=== PATIENT | female | born 1935 ===

== ENCOUNTER 2017-03-01 15:13 | Emergency (ER) | payer MEDICARE, OTHER ==
[2017-03-01 15:51] VITALS: RESP 20
[2017-03-01] MEDS ORDERED: SODIUM CHLORIDE 0.9% 500 ML IV STA (16:00)
[2017-03-01] MEDS ORDERED: LORazepam 2 MG/ML SYRINGE IV STA (16:01)
--- NOTE | 2017-03-01 16:04 | ED ---
General Adult HPI - General Chief complaint: Neuro Symptoms/Deficit Stated complaint: facial numbness/abdominal pain Time Seen by Provider: 03/01/17 15:15 Source: patient, RN notes reviewed Mode of arrival: wheelchair Limitations: no limitations - History of Present Illness Initial comments: This is an 81-year-old female who presents emergency Department with a past medical history significant for TIA. Patient comes in today because the top of her head including her forehead became tingly even though she had no loss of sensation. Patient states both sides were equally tingly. Patient denies any slurred speech or facial droop. Patient denies any visual disturbances. Patient denies any weakness or numbness. Patient denies any chest pain or palpitations. Patient denies any difficulty breathing or shortness of breath. Patient denies any radiation of the pain. Patient denies diaphoresis. Patient denies any nausea. Patient denies any headache - Related Data Home Medications Medication Instructions Recorded Confirmed Acetaminophen/Diphenhydramine 1 tab PO HS PRN 04/02/16 03/01/17 [Tylenol PM Extra Strength] Cholecalciferol [Vitamin D3] 1,000 unit PO DAILY 04/02/16 03/01/17 Cyanocobalamin [Vitamin B-12] 500 mcg PO DAILY 04/02/16 03/01/17 Furosemide [Lasix] 20 mg PO DAILY 04/02/16 03/01/17 LORazepam [Lorazepam] 0.5 mg PO HS 04/02/16 03/01/17 Losartan [Cozaar] 25 mg PO DAILY 04/02/16 03/01/17 Pravastatin Sodium [Pravachol] 80 mg PO DAILY@1200 04/02/16 03/01/17 Primidone [Mysoline] 50 mg PO QID 04/02/16 03/01/17 Calcium Carbonate/Vitamin D3 1 tab PO DAILY 03/01/17 03/01/17 [Calcium 600-Vit D3 200 Tablet] Potassium Chloride [Klor-Con 10] 10 meq PO DAILY 03/01/17 03/01/17 Propranolol HCl 80 mg PO BID 03/01/17 03/01/17 Previous Rx's Medication Instructions Recorded Aspirin EC [Ecotrin Low Dose] 81 mg PO DAILY #30 tablet. 04/05/16 Apixaban [Eliquis] 2.5 mg PO BID tablet 09/15/16 Allergies Allergy/AdvReac Type Severity Reaction Status Date / Time No Known Allergies Allergy Verified 03/01/17 15:56 Review of Systems ROS Statement: Those systems with pertinent positive or pertinent negative responses have been documented in the HPI. ROS Other: All systems not noted in ROS Statement are negative. Past Medical History Past Medical History: Heart Failure, CVA/TIA, Hypertension Additional Past Medical History / Comment(s): anxiety History of Any Multi-Drug Resistant Organisms: None Reported Past Surgical History: Back Surgery, Tubal Ligation Past Anesthesia/Blood Transfusion Reactions: No Reported Reaction Past Psychological History: Anxiety Smoking Status: Never smoker Past Alcohol Use History: None Reported Past Drug Use History: None Reported - Past Family History Father Family Medical History: CVA/TIA Mother Family Medical History: Cancer Additional Family Medical History / Comment(s): Mother had bladder cancer General Exam - General Exam Comments Initial Comments: GENERAL: Patient is well-developed and well-nourished. Patient is nontoxic and well- hydrated and is in no acute distress. ENT: Neck is soft and supple. No significant lymphadenopathy is noted. Oropharynx is clear. Moist mucous membranes. Neck has full range of motion without eliciting any pain. EYES: The sclera were anicteric and conjunctiva were pink and moist. Extraocular movements were intact and pupils were equal round and reactive to light. Eyelids were unremarkable. PULMONARY: Unlabored respirations. Good breath sounds bilaterally. No audible rales rhonchi or wheezing was noted. CARDIOVASCULAR: There is a regular rate and rhythm without any murmurs gallops or rubs. ABDOMEN: Soft and nontender with normal bowel sounds. No palpable organomegaly was noted. There is no palpable pulsatile mass. SKIN: Skin is clear with no lesions or rashes and otherwise unremarkable. NEUROLOGIC: Patient is alert and oriented x3. Cranial nerves II through XII are grossly intact. Motor and sensory are also intact. Normal speech, volume and content. Symmetrical smile. MUSCULOSKELETAL: Normal extremities with adequate strength and full range of motion. LYMPHATICS: No significant lymphadenopathy is noted PSYCHIATRIC: Normal psychiatric evaluation. Normal interpersonal interactions appears functionally intact in deals appropriately with others. Patient is mildly anxious. Limitations: no limitations Course Vital Signs 03/01/17 03/01/17 03/01/17 15:14 15:32 16:17 Temperature 97.7 F Pulse Rate 78 70 71 Respiratory 18 20 20 Rate Blood Pressure 212/90 194/78 168/71 O2 Sat by Pulse 94 L 95 Oximetry Medical Decision Making - Medical Decision Making EKG shows normal sinus rhythm at 77 bpm PA interval 154 QRS is 76 QT was 404 QTC is 457. Patient's EKG shows no ST segment elevation or depression or T wave abnormalities are noted. Chest x-ray shows no acute normalities. I gave the patient Ativan the patient states all of her symptoms resolved. I went back into reevaluate the patient she states she still has no symptoms and she would like to be discharged home to follow-up with her primary medical care doctor. - Lab Data Result diagrams: 03/01/17 16:15 03/01/17 16:15 Lab Results 03/01/17 03/01/17 03/01/17 Range/Units 16:15 16:15 16:15 WBC 5.9 (3.8-10.6) k/uL RBC 3.84 (3.80-5.40) m/uL Hgb 12.8 (11.4-16.0) gm/dL Hct 37.9 (34.0-46.0) % MCV 98.8 (80.0-100.0) fL MCH 33.5 (25.0-35.0) pg MCHC 33.9 (31.0-37.0) g/dL RDW 13.9 (11.5-15.5) % Plt Count 289 (150-450) k/uL Neutrophils % 66 % Lymphocytes % 22 % Monocytes % 7 % Eosinophils % 4 % Basophils % 1 % Neutrophils # 3.9 (1.3-7.7) k/uL Lymphocytes # 1.3 (1.0-4.8) k/uL Monocytes # 0.4 (0-1.0) k/uL Eosinophils # 0.2 (0-0.7) k/uL Basophils # 0.0 (0-0.2) k/uL PT (9.0-12.0) sec INR (<1.2) APTT (22.0-30.0) sec Sodium 142 (137-145) mmol/L Potassium 3.8 (3.5-5.1) mmol/L Chloride 107 (98-107) mmol/L Carbon Dioxide 27 (22-30) mmol/L Anion Gap 8 mmol/L BUN 13 (7-17) mg/dL Creatinine 1.05 H (0.52-1.04) mg/dL Est GFR (MDRD) Af Amer >60 (>60 ml/min/1.73 sqM) Est GFR (MDRD) Non-Af 50 (>60 ml/min/1.73 sqM) Glucose 157 H (74-99) mg/dL Calcium 9.1 (8.4-10.2) mg/dL Magnesium 1.9 (1.6-2.3) mg/dL Total Bilirubin 0.3 (0.2-1.3) mg/dL AST 22 (14-36) U/L ALT 36 (9-52) U/L Alkaline Phosphatase 113 (38-126) U/L Total Creatine Kinase 45 (30-135) U/L CK-MB (CK-2) 0.5 (0.0-2.4) ng/mL CK-MB (CK-2) Rel Index 1.1 Troponin I <0.012 (0.000-0.034) ng/mL Total Protein 6.5 (6.3-8.2) g/dL Albumin 3.7 (3.5-5.0) g/dL 03/01/17 Range/Units 16:15 WBC (3.8-10.6) k/uL RBC (3.80-5.40) m/uL Hgb (11.4-16.0) gm/dL Hct (34.0-46.0) % MCV (80.0-100.0) fL MCH (25.0-35.0) pg MCHC (31.0-37.0) g/dL RDW (11.5-15.5) % Plt Count (150-450) k/uL Neutrophils % % Lymphocytes % % Monocytes % % Eosinophils % % Basophils % % Neutrophils # (1.3-7.7) k/uL Lymphocytes # (1.0-4.8) k/uL Monocytes # (0-1.0) k/uL Eosinophils # (0-0.7) k/uL Basophils # (0-0.2) k/uL PT 9.5 (9.0-12.0) sec INR 0.9 (<1.2) APTT 21.3 L (22.0-30.0) sec Sodium (137-145) mmol/L Potassium (3.5-5.1) mmol/L Chloride (98-107) mmol/L Carbon Dioxide (22-30) mmol/L Anion Gap mmol/L BUN (7-17) mg/dL Creatinine (0.52-1.04) mg/dL Est GFR (MDRD) Af Amer (>60 ml/min/1.73 sqM) Est GFR (MDRD) Non-Af (>60 ml/min/1.73 sqM) Glucose (74-99) mg/dL Calcium (8.4-10.2) mg/dL Magnesium (1.6-2.3) mg/dL Total Bilirubin (0.2-1.3) mg/dL AST (14-36) U/L ALT (9-52) U/L Alkaline Phosphatase (38-126) U/L Total Creatine Kinase (30-135) U/L CK-MB (CK-2) (0.0-2.4) ng/mL CK-MB (CK-2) Rel Index Troponin I (0.000-0.034) ng/mL Total Protein (6.3-8.2) g/dL Albumin (3.5-5.0) g/dL Disposition Clinical Impression: Paresthesia, Anxiety Disposition: HOME SELF-CARE Condition: Good Instructions: Paresthesia (ED) Referrals: Kosta Fang MD [Primary Care Provider] - 1-2 days Time of Disposition: 17:52
--- NOTE | 2017-03-01 16:28 | XR ---
EXAMINATION TYPE: XR chest 2V DATE OF EXAM: 03/01/2017 COMPARISON: Chest x-ray April 03, 2016. HISTORY: Chest pain TECHNIQUE: Frontal and lateral views of the chest are obtained. FINDINGS: There is chronic parenchymal change without suspicious focal air space opacity, pleural ef fusion, or pneumothorax seen. The cardiac silhouette size is within normal limits with atherosclerot ic thoracic aorta. The osseous structures are demineralized. There is multilevel spurring in the sp ine seen. Cholecystectomy clips are noted. IMPRESSION: Chronic changes without acute pulmonary process.
[2017-03-01 16:33] LABS: Basophils % (A) 1 %; CH 33.7; CHCM 34.3; Eosinophils # (A) 0.2 k/uL (0-0.7); Eosinophils % (A) 4 %; HCT 37.9 % (34.0-46.0); HDW 2.44; HGB 12.8 gm/dL (11.4-16.0); Luc % (Auto) 2; Lymphocytes # (A) 1.3 k/uL (1.0-4.8); Lymphocytes % (A) 22 %; MCH 33.5 pg (25.0-35.0); MCHC 33.9 g/dL (31.0-37.0); MCV 98.8 fL (80.0-100.0); Mean Platelet Volume 7.4; Monocytes # (A) 0.4 k/uL (0-1.0); Monocytes % (A) 7 %; Neutrophils # (A) 3.9 k/uL (1.3-7.7); Neutrophils % (A) 66 %; RBC 3.84 m/uL (3.80-5.40); RDW 13.9 % (11.5-15.5); WBC 5.9 k/uL (3.8-10.6); WBC (Perox) 6.11
[2017-03-01 16:40] LABS: INR 0.9 (<1.2); Prothrombin Time 9.5 sec (9.0-12.0)
[2017-03-01 16:43] LABS: ALT 36 U/L (9-52); AST 22 U/L (14-36); Alkaline Phosphatase 113 U/L (38-126); Anion Gap 8 mmol/L; Blood Urea Nitrogen 13 mg/dL (7-17); Calcium 9.1 mg/dL (8.4-10.2); Carbon Dioxide 27 mmol/L (22-30); Chloride 107 mmol/L (98-107); Glucose 157 mg/dL (74-99); Magnesium 1.9 mg/dL (1.6-2.3); Non-African American GFR(MDRD) 50 (>60 ml/min/1.73 sqM); Potassium 3.8 mmol/L (3.5-5.1); Sodium 142 mmol/L (137-145); Total Bilirubin 0.3 mg/dL (0.2-1.3); Total Protein 6.5 g/dL (6.3-8.2)
[2017-03-01 16:50] LABS: Creatine Kinase 45 U/L (30-135)
[2017-03-01 16:52] LABS: Partial Thromboplastin Time 21.3 sec (22.0-30.0)
[2017-03-01 17:03] LABS: Creatine Kinase MB 0.5 ng/mL (0.0-2.4); Troponin I <0.012 ng/mL (0.000-0.034)
[2017-03-01 18:01] VITALS: BP 169/84; PULSE 74; TEMP 98.2
== END 2017-03-01 18:01 | disposition home or self-care (01) ==
LOC: EC 15:13
DX: R20.2 Paresthesia of skin (principal); F41.9 Anxiety disorder, unspecified; I11.0 Hypertensive heart disease with heart failure; I50.9 Heart failure, unspecified; Z82.3 Family history of stroke; Z79.899 Other long term (current) drug therapy
CPT/HCPCS: 99284; 96374; 96361; 36415; 93005; 80053; 82550; 82553; 83735; 84484; 85025; 85610; 85730; 71020; J2060

== ENCOUNTER 2023-03-08 01:33 | Inpatient (IN) | payer MEDICARE, OTHER ==
[2023-03-08] MEDS ORDERED: fentaNYL (PF) 50 MCG/ML 2 ML AMP IVP PRN (02:02)
[2023-03-08] MEDS ORDERED: NALOXONE 0.4 MG/ML 1 ML VIAL IV PRN (02:03)
[2023-03-08] MEDS: SODIUM CHLORIDE 0.9% 1,000 ML IV SCH ×2 (02:16→16:30)
--- NOTE | 2023-03-08 02:20 | ED ---
General Adult HPI - General Chief complaint: Abdominal Pain Stated complaint: Perforated Bowel Time Seen by Provider: 03/08/23 01:36 Source: patient Mode of arrival: EMS Limitations: no limitations - History of Present Illness Initial comments: This is an 87-year-old female who presents emergency Department [facility] being found to have a perforated colon. The patient reportedly had abdominal pain 2 days prior to having a colonoscopy done on Sunday. The patient stated that after the colonoscopy she had worsening abdominal pain so she went to the emergency department today. The patient stated that she had pain throughout her abdomen and computed tomography scan revealed a perforated colon secondary to the likely colonoscopy. The patient was then transferred for evaluation by surgery. On arrival, the patient stated that her pain was under control however any touch to the abdomen was painful. The patient also reported a fever without chills. The patient denied any active nausea or vomiting. - Related Data Home Medications Medication Instructions Recorded Confirmed Acetaminophen/Diphenhydramine 1 tab PO HS PRN 04/02/16 03/01/17 [Tylenol PM Extra Strength] Cholecalciferol [Vitamin D3 (25 1,000 unit PO DAILY 04/02/16 03/01/17 Mcg = 1000 Iu)] Cyanocobalamin [Vitamin B-12] 500 mcg PO DAILY 04/02/16 03/01/17 Furosemide [Lasix] 20 mg PO DAILY 04/02/16 03/01/17 LORazepam [Lorazepam] 0.5 mg PO HS 04/02/16 03/01/17 Losartan [Cozaar] 25 mg PO DAILY 04/02/16 03/01/17 Pravastatin Sodium [Pravachol] 80 mg PO DAILY@1200 04/02/16 03/01/17 Primidone [Mysoline] 50 mg PO QID 04/02/16 03/01/17 Calcium Carbonate/Vitamin D3 1 tab PO DAILY 03/01/17 03/01/17 [Calcium 600-Vit D3 200 Tablet] Potassium Chloride [Klor-Con 10] 10 meq PO DAILY 03/01/17 03/01/17 Propranolol HCl 80 mg PO BID 03/01/17 03/01/17 Previous Rx's Medication Instructions Recorded Aspirin EC [Ecotrin Low Dose] 81 mg PO DAILY #30 tablet. 04/05/16 Apixaban [Eliquis] 2.5 mg PO BID tablet 04/06/16 Allergies Allergy/AdvReac Type Severity Reaction Status Date / Time No Known Allergies Allergy Verified 03/01/17 15:56 Review of Systems ROS Statement: Those systems with pertinent positive or pertinent negative responses have been documented in the HPI. ROS Other: All systems not noted in ROS Statement are negative. Past Medical History Past Medical History: Heart Failure, CVA/TIA, Hypertension Additional Past Medical History / Comment(s): anxiety History of Any Multi-Drug Resistant Organisms: None Reported Past Surgical History: Back Surgery, Tubal Ligation Past Anesthesia/Blood Transfusion Reactions: No Reported Reaction Past Psychological History: Anxiety Smoking Status: Never smoker Past Alcohol Use History: None Reported Past Drug Use History: None Reported - Past Family History Father Family Medical History: CVA/TIA Mother Family Medical History: Cancer Additional Family Medical History / Comment(s): Mother had bladder cancer General Exam Limitations: no limitations General appearance: alert, in no apparent distress Head exam: Present: atraumatic, normocephalic, normal inspection Eye exam: Present: normal appearance, PERRL Pupils: Present: normal accommodation ENT exam: Present: normal exam, normal oropharynx, mucous membranes moist Neck exam: Present: normal inspection, full ROM Respiratory exam: Present: normal lung sounds bilaterally. Absent: respiratory distress, wheezes Cardiovascular Exam: Present: regular rate, normal rhythm, normal heart sounds GI/Abdominal exam: Present: tenderness (TTP in all quadrants), guarding Extremities exam: Present: normal inspection, full ROM, normal capillary refill Back exam: Present: normal inspection, full ROM Neurological exam: Present: alert, oriented X3, CN II-XII intact Psychiatric exam: Present: normal affect, normal mood Skin exam: Present: warm, dry Course Vital Signs 03/08/23 01:34 Temperature 101.3 F H Pulse Rate 84 Respiratory 16 Rate Blood Pressure 113/48 O2 Sat by Pulse 93 L Oximetry Medical Decision Making - Medical Decision Making Was pt. sent in by a medical professional or institution (, PA, CIVIL PREPAREDNESS TRAINING OFFICER, urgent care, hospital, or [facility]...) When possible be specific @ -Yes, sent as a transfer patient from [facility] Did you speak to anyone other than the patient for history (EMS, parent, family, police, friend...)? What history was obtained from this source @ -No Did you review nursing and triage notes (agree or disagree)? Why? @ -I reviewed and agree with nursing and triage notes Were old charts reviewed (outside hosp., previous admission, EMS record, old EKG, old radiological studies, urgent care reports/EKG's, [facility] records)? Report findings @ -No old charts were reviewed Differential Diagnosis (chest pain, altered mental status, abdominal pain women, abdominal pain men, vaginal bleeding, weakness, fever, dyspnea, syncope, headache, dizziness, GI bleed, back pain, seizure, CVA, palpatations, mental health)? @ -Bowel perforation, sepsis, peritonitis EKG interpreted by me (3pts min.). @ -None X-rays interpreted by me (1pt min.). @ -None done CT interpreted by me (1pt min.). @ -None done U/S interpreted by me (1pt. min.). @ -None done What testing was considered but not performed or refused? (CT, X-rays, U/S, labs)? Why? @ -CT imaging was performed at the outside hospital therefore no repeat was needed at this time. What meds were considered but not given or refused? Why? @ -None Did you discuss the management of the patient with other professionals (professionals i.e. , PA, CIVIL PREPAREDNESS TRAINING OFFICER, lab, RT, psych nurse, marriage and family social worker, board certified behavioral analyst, teacher, crime prevention police officer, director of casework services)? Give summary @ -Yes, the surgeon on-call, Dr. Reyes was contacted and accepted the patient for admission as well as plan for the OR this morning at 5:30. Was smoking cessation discussed for >3mins.? @ -No Was critical care preformed (if so, how long)? @ -Yes, see above Were there social determinants of health that impacted care today? How? (Homelessness, low income, unemployed, alcoholism, drug addiction, transportation, low edu. Level, literacy, decrease access to med. care, shelter, rehab)? @ -No Was there de-escalation of care discussed even if they declined (Discuss DNR or withdrawal of care, Hospice)? DNR status @ -No What co-morbidities impacted this encounter? (DM, HTN, Smoking, COPD, CAD, Cancer, CVA, ARF, Chemo, Hep., AIDS, mental health diagnosis, sleep apnea, morbid obesity)? @ -None Was patient admitted / discharged? Hospital course, mention meds given and ro [place], prescriptions, significant lab abnormalities, going to OR and other pertinent info. @ -Was seen and evaluated emergency department. On physical exam, the patient was resting in bed without any acute distress. Vital signs admission showed a temperature 101.3F but otherwise had vital signs within normal limits. Due to the findings on the previous computed tomography scan and known perforated colon, the surgeon on-call was contacted on arrival. He did accept the patient for admission and to plan to take the OR at 5:30 this morning. The patient was agreeable to this and all of her questions were answered appropriate. The patient was admitted in stable but serious condition. Undiagnosed new problem with uncertain prognosis? @ -No Drug Therapy requiring intensive monitoring for toxicity (Heparin, Nitro, Ins ulin, Cardizem)? @ -No Were any procedures done? @ -No Diagnosis/symptom? @ -Bowel perforation Acute, or Chronic, or Acute on Chronic? @ -Acute Uncomplicated (without systemic symptoms) or Complicated (systemic symptoms)? @ -Complicated Side effects of treatment? @ -No Exacerbation, Progression, or Severe Exacerbation? @ -No Poses a threat to life or bodily function? How? (Chest pain, [place], [place], pneumonia, PE, COPD, DKA, ARF, appy, cholecystitis, CVA, Diverticulitis, Homicidal, Suicidal, threat to staff... and all critical care pts) @ -Yes, continued perforation can lead to peritonitis and sepsis leading to e ndorgan damage and possible . - Lab Data Result diagrams: 03/08/23 02:04 Lab Results 03/08/23 03/08/23 Range/Units 02:04 02:04 WBC 6.6 (3.8-10.6) k/uL RBC 3.18 L (3.80-5.40) m/uL Hgb 10.7 L (11.4-16.0) gm/dL Hct 30.3 L (34.0-46.0) % MCV 95.3 (80.0-100.0) fL MCH 33.8 (25.0-35.0) pg MCHC 35.4 (31.0-37.0) g/dL RDW 12.9 (11.5-15.5) % Plt Count 220 (150-450) k/uL MPV 7.8 Neutrophils % 86 % Lymphocytes % 7 % Monocytes % 5 % Eosinophils % 1 % Basophils % 0 % Neutrophils # 5.7 (1.3-7.7) k/uL Lymphocytes # 0.5 L (1.0-4.8) k/uL Monocytes # 0.3 (0-1.0) k/uL Eosinophils # 0.0 (0-0.7) k/uL Basophils # 0.0 (0-0.2) k/uL PT 10.5 (9.0-12.0) sec INR 1.0 (<1.2) APTT 25.2 (22.0-30.0) sec Critical Care Time Critical Care Time: Yes Total Critical Care Time: 31 Disposition Clinical Impression: Bowel perforation Disposition: ADMITTED IP TO THIS [facility] Condition: Serious Is patient prescribed a controlled substance at d/c from ED?: No Referrals: Kosta Fang MD [Primary Care Provider] - 1-2 days Time of Disposition: 02:00 Decision to Admit Reason: Admit from EC Decision Date: 03/08/23 Decision Time: 02:00
[2023-03-08 02:21] LABS: Basophils % (A) 0 %; Eosinophils % (A) 1 %; HCT 30.3 % (34.0-46.0); HGB 10.7 gm/dL (11.4-16.0); Lymphocytes # (A) 0.5 k/uL (1.0-4.8); Lymphocytes % (A) 7 %; MCH 33.8 pg (25.0-35.0); MCHC 35.4 g/dL (31.0-37.0); MCV 95.3 fL (80.0-100.0); Mean Platelet Volume 7.8; Monocytes # (A) 0.3 k/uL (0-1.0); Monocytes % (A) 5 %; Neutrophils # (A) 5.7 k/uL (1.3-7.7); Neutrophils % (A) 86 %; Platelet Count 220 k/uL (150-450); RBC 3.18 m/uL (3.80-5.40); RDW 12.9 % (11.5-15.5); WBC 6.6 k/uL (3.8-10.6)
[2023-03-08 02:33] LABS: Partial Thromboplastin Time 25.2 sec (22.0-30.0); Prothrombin Time 10.5 sec (9.0-12.0)
[2023-03-08 02:36] LABS: African American GFR (CKD) 41 (>60 ml/min/1.73 sqM); Alkaline Phosphatase 86 U/L (38-126); Anion Gap 5 mmol/L; Blood Urea Nitrogen 24 mg/dL (7-17); Calcium 7.5 mg/dL (8.4-10.2); Carbon Dioxide 21 mmol/L (22-30); Chloride 101 mmol/L (98-107); Glucose 96 mg/dL (74-99); Lipase 125 U/L (23-300); Non-African American GFR(CKD) 36 (>60 ml/min/1.73 sqM); Sodium 127 mmol/L (137-145); Total Bilirubin 1.8 mg/dL (0.2-1.3)
[2023-03-08 03:03] LABS: Albumin 2.5 g/dL (3.5-5.0); Magnesium 1.8 mg/dL (1.6-2.3); Potassium 4.1 mmol/L (3.5-5.1); Total Protein 5.2 g/dL (6.3-8.2)
[2023-03-08 03:04] LABS: ALT 42 U/L (4-34); AST 108 U/L (14-36)
[2023-03-08] MEDS: ACETAMINOPHEN TAB 325 MG TAB PO PRN (03:37)
[2023-03-08] MEDS ORDERED: fentaNYL (PF) 50 MCG/ML 2 ML AMP ONE (05:42)
[2023-03-08] MEDS ORDERED: GLYCOPYRROLATE 0.2 MG/ML 2 ML VIAL ONE (05:42)
[2023-03-08] MEDS ORDERED: PHENYLEPHRINE-0.9% NACL SYG 1,000 MCG/10 ML SYRINGE ONE (05:42)
[2023-03-08] MEDS ORDERED: ROCURONIUM 10 MG/ML (5 ML VIAL) IV ONE (05:42)
[2023-03-08] MEDS ORDERED: MIDAZOLAM 2 MG/2 ML VIAL ONE (05:42)
[2023-03-08] MEDS ORDERED: PROPOFOL 10 MG/ML 20 ML VIAL IV ONE (05:42)
[2023-03-08] MEDS ORDERED: NEOSTIGMINE 1 MG/ML 10 ML VIAL ONE (05:42)
--- NOTE | 2023-03-08 05:42 | P.GSHP ---
History of Present Illness H&P Date: 03/08/23 Chief Complaint: Bowel perforation 87-year-old female transferred from outside hospital after colonoscopy resulted in abdominal pain and findings of free air. CAT scan showed increased air loculations around the proximal transverse colon. Some fluid in the pelvis. Pain gradually increasing since Sunday. She states she was told she had polyps again on the study. Patient with fever of 101.3. Significant abdominal tenderness per ER staff. Patient is unsure where the polyps were found. Patient says the pain began in the mid abdomen. - Review of Systems Comment: The patient denies any acute changes in vision or hearing, no dysphagia or odynophagia, no chest pain or shortness of breath, no dysuria or hematuria, no headache, no runny nose, no rectal bleeding or melena, no unexplained weight loss Past Medical History Past Medical History: Heart Failure, CVA/TIA, Hypertension Additional Past Medical History / Comment(s): anxiety History of Any Multi-Drug Resistant Organisms: None Reported Past Surgical History: Back Surgery, Tubal Ligation Past Anesthesia/Blood Transfusion Reactions: No Reported Reaction Past Psychological History: Anxiety Smoking Status: Never smoker Past Alcohol Use History: None Reported Past Drug Use History: None Reported - Past Family History Father Family Medical History: CVA/TIA Mother Family Medical History: Cancer Additional Family Medical History / Comment(s): Mother had bladder cancer Medications and Allergies Home Medications Medication Instructions Recorded Confirmed Type Acetaminophen/Diphenhydramine 1 tab PO HS PRN 04/02/16 03/01/17 History [Tylenol PM Extra Strength] Cholecalciferol [Vitamin D3 (25 1,000 unit PO DAILY 04/02/16 03/01/17 History Mcg = 1000 Iu)] Cyanocobalamin [Vitamin B-12] 500 mcg PO DAILY 04/02/16 03/01/17 History Furosemide [Lasix] 20 mg PO DAILY 04/02/16 03/01/17 History LORazepam [Lorazepam] 0.5 mg PO HS 04/02/16 03/01/17 History Losartan [Cozaar] 25 mg PO DAILY 04/02/16 03/01/17 History Pravastatin Sodium [Pravachol] 80 mg PO DAILY@1200 04/02/16 03/01/17 History Primidone [Mysoline] 50 mg PO QID 04/02/16 03/01/17 History Aspirin EC [Ecotrin Low Dose] 81 mg PO DAILY #30 tablet. 04/05/16 03/01/17 Rx Apixaban [Eliquis] 2.5 mg PO BID tablet 04/06/16 03/01/17 Rx Calcium Carbonate/Vitamin D3 1 tab PO DAILY 03/01/17 03/01/17 History [Calcium 600-Vit D3 200 Tablet] Potassium Chloride [Klor-Con 10] 10 meq PO DAILY 03/01/17 03/01/17 History Propranolol HCl 80 mg PO BID 03/01/17 03/01/17 History Allergies Allergy/AdvReac Type Severity Reaction Status Date / Time No Known Allergies Allergy Verified 03/01/17 15:56 Surgical - Exam Vital Signs Temp Pulse Resp BP Pulse Ox 101.3 F H 84 16 113/48 93 L 03/08/23 01:34 03/08/23 01:34 03/08/23 01:34 03/08/23 01:34 03/08/23 01:34 Physical exam: General: Well-developed, well-nourished HEENT: Normocephalic, sclerae nonicteric Abdomen: Diffuse abdominal tenderness, mild distention Extremities: No edema Neuro: Alert and oriented Results - Labs 03/08/23 02:04 03/08/23 02:04 Abnormal Lab Results - Last 24 Hours (Table) 03/08/23 03/08/23 Range/Units 02:04 02:04 RBC 3.18 L (3.80-5.40) m/uL Hgb 10.7 L (11.4-16.0) gm/dL Hct 30.3 L (34.0-46.0) % Lymphocytes # 0.5 L (1.0-4.8) k/uL Sodium 127 L (137-145) mmol/L Carbon Dioxide 21 L (22-30) mmol/L BUN 24 H (7-17) mg/dL Creatinine 1.35 H (0.52-1.04) mg/dL Calcium 7.5 L (8.4-10.2) mg/dL Total Bilirubin 1.8 H (0.2-1.3) mg/dL AST 108 H (14-36) U/L ALT 42 H (4-34) U/L Total Protein 5.2 L (6.3-8.2) g/dL Albumin 2.5 L (3.5-5.0) g/dL Diabetes panel 03/08/23 Range/Units 02:04 Sodium 127 L (137-145) mmol/L Potassium 4.1 (3.5-5.1) mmol/L Chloride 101 (98-107) mmol/L Carbon Dioxide 21 L (22-30) mmol/L BUN 24 H (7-17) mg/dL Creatinine 1.35 H (0.52-1.04) mg/dL Glucose 96 (74-99) mg/dL Calcium 7.5 L (8.4-10.2) mg/dL AST 108 H (14-36) U/L ALT 42 H (4-34) U/L Alkaline Phosphatase 86 (38-126) U/L Total Protein 5.2 L (6.3-8.2) g/dL Albumin 2.5 L (3.5-5.0) g/dL Calcium panel 03/08/23 Range/Units 02:04 Calcium 7.5 L (8.4-10.2) mg/dL Albumin 2.5 L (3.5-5.0) g/dL Pituitary panel 03/08/23 Range/Units 02:04 Sodium 127 L (137-145) mmol/L Potassium 4.1 (3.5-5.1) mmol/L Chloride 101 (98-107) mmol/L Carbon Dioxide 21 L (22-30) mmol/L BUN 24 H (7-17) mg/dL Creatinine 1.35 H (0.52-1.04) mg/dL Glucose 96 (74-99) mg/dL Calcium 7.5 L (8.4-10.2) mg/dL Adrenal panel 03/08/23 Range/Units 02:04 Sodium 127 L (137-145) mmol/L Potassium 4.1 (3.5-5.1) mmol/L Chloride 101 (98-107) mmol/L Carbon Dioxide 21 L (22-30) mmol/L BUN 24 H (7-17) mg/dL Creatinine 1.35 H (0.52-1.04) mg/dL Glucose 96 (74-99) mg/dL Calcium 7.5 L (8.4-10.2) mg/dL Total Bilirubin 1.8 H (0.2-1.3) mg/dL AST 108 H (14-36) U/L ALT 42 H (4-34) U/L Alkaline Phosphatase 86 (38-126) U/L Total Protein 5.2 L (6.3-8.2) g/dL Albumin 2.5 L (3.5-5.0) g/dL Assessment and Plan (1) Bowel perforation Narrative/Plan: 87-year-old female with suspected colonic perforation after colonoscopy on Sunday. Findings discussed with patient in detail. We'll proceed with exploratory laparotomy, possible bowel resection, possible ostomy based on intraoperative findings. Risks of bleeding, infection, leak, abscess, bowel and ureteral injury, sepsis, respiratory cardiac complications reviewed. She understands and wishes to proceed. Current Visit: Yes Status: Acute Code(s): K63.1 - PERFORATION OF INTESTINE (NONTRAUMATIC) SNOMED Code(s): 58906257
[2023-03-08] MEDS ORDERED: IV FLUID CONTINUATION 1,000 ML IV ONE (05:47)
[2023-03-08] MEDS ORDERED: metroNIDAZOLE-NS PMX 500 MG in SALINE 1 100ML.BAG IVPB ONE (06:00)
[2023-03-08] MEDS ORDERED: LACTATED RINGERS 1,000 ML IV ONE (07:13)
[2023-03-08] MEDS ORDERED: HYDROmorphone 0.5 MG/0.5 ML SYRINGE IVP PRN (07:30)
[2023-03-08] MEDS ORDERED: HYDROmorphone 1 MG/ML 1 ML SYRINGE IVP PRN (07:30)
[2023-03-08] MEDS ORDERED: ONDANSETRON 4 MG/2 ML VIAL IVP PRN (07:30)
--- NOTE | 2023-03-08 07:36 | P.OP ---
Date of Procedure: 03/08/23 Procedure(s) Performed: PREOPERATIVE DIAGNOSIS: Colon perforation POSTOPERATIVE DIAGNOSIS: Same PROCEDURE: Exploratory laparotomy with right colectomy SURGEON: Eric EBL: 50 ML ANESTHESIA: General COMPLICATIONS: None OPERATIVE PROCEDURE: Placement placed in the operating table in the supine position. The patient was placed under general anesthesia. Abdomen was then prepped and draped sterilely. Midline incision made using the scalpel. Dissection through the subcutaneous tissues and fascia took place using electrocautery. Entrance into the perineal cavity occurred. Bookwalter retractor was utilized. The patient had a moderate amount of purulent fluid within the abdomen that was evacuated. Cultures were taken. The sigmoid colon and left colon appeared normal. As we approached the right colon there was a large amount of inflammatory change and thicker purulent fluid present at the medial aspect of the ascending colon. As the omentum was swept superiorly away from the cecum and ascending colon an obvious perforation was noted. This was immediately controlled using a single firing of the TX 60 device. This was probably 3 cm or so from the base of the appendix. As I inspected the serosa around our staple line I was concerned that the bowel did not appear healthy and it was decided to proceed with segmental resection given the overall appearance and the fact that the perforation likely had been going on for the last 2-3 days. The right colon was fully mobilized. The duodenum was carefully preserved and no cautery was used adjacent to the duodenum. The transverse colon was then divided using a linear 75 stapler. Mesentery of the transverse colon and ascending colon cecum and terminal ileum was then divided using a combination of 0 silk ties and the LigaSure device. Specimen was passed off at that point. The distal 1 cm of the terminal ileum appeared slightly ischemic and I decided to take another small section of the small bowel by dividing with the linear stapler and the mesentery again using LigaSure. The area was irrigated. No bleeding was seen. The antimesenteric portion of the staple line of both the ileum and transverse colon was excised using electrocautery. The linear 75 stapler was fired along the antimesenteric border creating a [id number] anastomosis antiperistaltic. The defect was then closed using a TX 60 device. The TX 60 stapler line was imbricated using interrupted 3-0 GI silk sutures. A 3-0 GI silk crotch stitch was also placed. Again irrigation took place with no evidence of bleeding. No additional abnormalities in the bowel both small bowel and colon were identified. The midline fascia was then reapproximated using 2 separate double-stranded looped PDS sutures. A drain was then placed anterior to the fascia exiting inferiorly. The subcutaneous tissues were closed using 3-0 Vicryl sutures. The skin was closed using marybeth. Sterile dressings were applied. At the end of this procedure the sponge needle and ensure counts were correct. DISPOSITION: Stable to recovery room
[2023-03-08] MEDS ORDERED: HYDROmorphone 0.5 MG/0.5 ML SYRINGE IVP ONE (07:56)
[2023-03-08] MEDS: PIPERACILLIN-TAZOBACTAM 3.375 GM in SODIUM CHLORIDE 0.9% 100 ML IVPB SCH ×3 (09:12→23:30)
[2023-03-08] MEDS: PANTOPRAZOLE 40 MG/10 ML VIAL IV SCH (09:12)
[2023-03-08] MEDS: HEPARIN SODIUM,PORCINE 5,000 UNIT/ML 1 ML VIAL SQ SCH ×3 (09:12→23:30)
[2023-03-08] MEDS: ACETAMINOPHEN IVPB SCH ×3 (09:13→23:20)
--- NOTE | 2023-03-08 14:53 | P.CONS ---
History of Present Illness - Reason for Consult Consult date: 03/08/23 Medical management - History of Present Illness History of present illness; patient is a 87-year-old lady who is a transfer from another hospital for perforated bowel. Patient recently had colonoscopy done on Sunday, following the procedure patient started having abdominal pain. Abdominal pain was very severe, associated with nausea and vomiting. Computed tomography scan done at the hospital showed perforated colon. Patient was transferred to [facility] for surgical evaluation. Patient underwent exploratory laparotomy with right colectomy by surgery. Postoperatively medicine team were consulted for medical management REVIEW OF SYSTEMS: CONSTITUTIONAL: No fever, no malaise, no fatigue. HEENT: No recent visual problems or hearing problems. Denied any sore throat. CARDIOVASCULAR: No chest pain, orthopnea, PND, no palpitations, no syncope. PULMONARY: No shortness of breath, no cough, no hemoptysis. GASTROINTESTINAL: Complaining abdominal pain, NEUROLOGICAL: No headaches, no weakness, no numbness. HEMATOLOGICAL: Denies any bleeding or petechiae. GENITOURINARY: Denies any burning micturition, frequency, or urgency. MUSCULOSKELETAL/RHEUMATOLOGICAL: Denies any joint pain, swelling, or any muscle pain. ENDOCRINE: Denies any polyuria or polydipsia. The rest of the 14-point review of systems is negative. PHYSICAL EXAMINATION: GENERAL: The patient is alert and oriented x3, not in any acute distress. Well developed, well nourished. HEENT: Pupils are round and equally reacting to light. EOMI. No scleral icterus. No conjunctival pallor. Normocephalic, atraumatic. No pharyngeal erythema. No thyromegaly. CARDIOVASCULAR: S1 and S2 present. No murmurs, rubs, or gallops. PULMONARY: Chest is clear to auscultation, no wheezing or crackles. ABDOMEN: Tender, exploratory laparotomy surgical incision , drain in place MUSCULOSKELETAL: No joint swelling or deformity. EXTREMITIES: No cyanosis, clubbing, or pedal edema. NEUROLOGICAL: Gross neurological examination did not reveal any focal deficits. SKIN: No rashes. Assessment and plan Perforated colon status post exploratory laparotomy with right colectomy Hyponatremia Acute kidney injury Elevated LFTs Monitor vital signs Monitor CBC Monitor CMP Continue IV fluids Continue IV Zosyn Continue pain management per surgery ID consulted Labs and medication were reviewed.. Continue same treatment. Continue with symptomatic treatment. Resume home medication. Monitor labs and vitals. DVT and GI prophylaxis. Further recommendations as per clinical course of the patient Dictation was produced using [employer] dictation software. please excuse any grammatical, word or spelling errors. Past Medical History Past Medical History: Heart Failure, CVA/TIA, Hypertension Additional Past Medical History / Comment(s): anxiety History of Any Multi-Drug Resistant Organisms: None Reported Past Surgical History: Back Surgery, Tubal Ligation Additional Past Surgical History / Comment(s): exploatory laprotomy with right colectomy 03/08/[address] quinn due to perforated bowel after a colonoscopy at a different facility on 03/05/23. Past Anesthesia/Blood Transfusion Reactions: No Reported Reaction Past Psychological History: Anxiety Smoking Status: Never smoker Past Alcohol Use History: None Reported Past Drug Use History: None Reported - Past Family History Father Family Medical History: CVA/TIA Mother Family Medical History: Cancer Additional Family Medical History / Comment(s): Mother had bladder cancer Medications and Allergies Home Medications Medication Instructions Recorded Confirmed Type LORazepam [Lorazepam] 0.5 mg PO HS 04/02/16 03/08/23 History Pravastatin Sodium [Pravachol] 80 mg PO DAILY 04/02/16 03/08/23 History Apixaban [Eliquis] 2.5 mg PO BID tablet 04/06/16 03/08/23 Rx Calcium/Vitamin D(Unknown Dose) 1 tab PO DAILY 03/08/23 03/08/23 History NIFEdipine XL [Procardia Xl] 30 mg PO DAILY 03/08/23 03/08/23 History Primidone 125mg 125 mg PO HS 03/08/23 03/08/23 History Propafenone [Rythmol] 150 mg PO BID 03/08/23 03/08/23 History Propranolol LA [Inderal LA] 60 mg PO BID 03/08/23 03/08/23 History Topiramate [Topamax] 50 mg PO DAILY 03/08/23 03/08/23 History Vitamin C(Unknown Dose) 1 tab PO DAILY 03/08/23 03/08/23 History amLODIPine [Norvasc] 5 mg PO DAILY 03/08/23 03/08/23 History busPIRone HCl [Buspar] 5 mg PO BID 03/08/23 03/08/23 History Allergies Allergy/AdvReac Type Severity Reaction Status Date / Time No Known Allergies Allergy Verified 03/08/23 10:43 Physical Exam Vitals: Vital Signs Temp Pulse Pulse Pulse Resp BP BP 03/08/23 08:46 20 03/08/23 08:45 98.8 F 65 16 124/70 03/08/23 08:18 61 20 118/53 03/08/23 08:03 109/66 03/08/23 07:58 60 14 102/50 03/08/23 07:43 59 L 16 119/62 03/08/23 07:28 97.6 F 66 12 134/70 03/08/23 04:00 99.2 F 80 20 92/45 03/08/23 03:00 78 18 104/43 03/08/23 01:34 101.3 F H 84 16 113/48 Pulse Ox 03/08/23 08:46 03/08/23 08:45 94 L 03/08/23 08:18 92 L 03/08/23 08:03 03/08/23 07:58 92 L 03/08/23 07:43 96 03/08/23 07:28 100 03/08/23 04:00 95 03/08/23 03:00 94 L 03/08/23 01:34 93 L Intake and Output 03/07/23 03/08/23 03/08/23 22:59 06:59 14:59 Intake Total 1000 300 Output Total 300 Balance 1000 0 Intake: IV 1000 300 Output: Urine 250 Estimated Blood Loss 50 Other: Voiding Method Indwelling Catheter Weight 48.988 kg 48.988 kg Results CBC & Chem 7: 03/08/23 02:04 03/08/23 02:04 Labs: Abnormal Lab Results - Last 24 Hours (Table) 03/08/23 03/08/23 Range/Units 02:04 02:04 RBC 3.18 L (3.80-5.40) m/uL Hgb 10.7 L (11.4-16.0) gm/dL Hct 30.3 L (34.0-46.0) % Lymphocytes # 0.5 L (1.0-4.8) k/uL Sodium 127 L (137-145) mmol/L Carbon Dioxide 21 L (22-30) mmol/L BUN 24 H (7-17) mg/dL Creatinine 1.35 H (0.52-1.04) mg/dL Calcium 7.5 L (8.4-10.2) mg/dL Total Bilirubin 1.8 H (0.2-1.3) mg/dL AST 108 H (14-36) U/L ALT 42 H (4-34) U/L Total Protein 5.2 L (6.3-8.2) g/dL Albumin 2.5 L (3.5-5.0) g/dL
[2023-03-08] MEDS: busPIRone HCl 5 MG TAB PO SCH (22:01)
[2023-03-08] MEDS ORDERED: ACETAMINOPHEN IVPB SCH (23:00)
[2023-03-08] MEDS: LORazepam 0.5 MG TAB PO SCH (23:05)
--- NOTE | 2023-03-08 23:06 | P.CONS ---
History of Present Illness - Reason for Consult Consult date: 03/08/23 Right colon perforation Requesting physician: Sulaiman Quinn - Chief Complaint Abdominal pain x few days - History of Present Illness Patient is a 87-year-old female with a past medical history difficult for CVA/TIA, hypertension and heart failure along with anxiety presenting to the hospital with abdominal pain apparently the patient recently did have a colonos copy before her abdominal pain started patient was evaluated at the outside facility with the patient was noticed to have a perforated colon and the patient was transferred to this facility for further work-up patient was taken to the OR and the patient is status post exploratory laparotomy with right colectomy abdominal cultures obtained which are currently pending patient was empirically started on Zosyn infectious was consulted for further management of antibiotic therapy. On today's evaluation that is 03/08/2023 the patient denies having any fever or any chills, patient is breathing comfortably patient has been complaining of abdominal pain however currently controlled with pain medication some nausea but no vomiting no chest pain or shortness of breath or cough, patient did have a white count of 6.6 creatinine is 1.35 liver enzymes are mildly elevated Review of Systems Positive point and negatives has been mentioned in the HPI, complete review of systems was performed and all other systems are negative Past Medical History Past Medical History: Heart Failure, CVA/TIA, Hypertension Additional Past Medical History / Comment(s): anxiety History of Any Multi-Drug Resistant Organisms: None Reported Past Surgical History: Back Surgery, Tubal Ligation Additional Past Surgical History / Comment(s): exploatory laprotomy with right colectomy 03/08/[address] quinn due to perforated bowel after a colonoscopy at a different facility on 03/05/23. Past Anesthesia/Blood Transfusion Reactions: No Reported Reaction Past Psychological History: Anxiety Smoking Status: Never smoker Past Alcohol Use History: None Reported Past Drug Use History: None Reported - Past Family History Father Family Medical History: CVA/TIA Mother Family Medical History: Cancer Additional Family Medical History / Comment(s): Mother had bladder cancer Medications and Allergies Home Medications Medication Instructions Recorded Confirmed Type Pravastatin Sodium [Pravachol] 80 mg PO DAILY 04/02/16 03/08/23 History Apixaban [Eliquis] 2.5 mg PO BID tablet 04/06/16 03/08/23 Rx Calcium/Vitamin D(Unknown Dose) 1 tab PO DAILY 03/08/23 03/08/23 History Primidone 125mg 125 mg PO HS 03/08/23 03/08/23 History Propafenone [Rythmol] 150 mg PO BID 03/08/23 03/08/23 History Topiramate [Topamax] 50 mg PO DAILY 03/08/23 03/08/23 History Vitamin C(Unknown Dose) 1 tab PO DAILY 03/08/23 03/08/23 History busPIRone HCl [Buspar] 5 mg PO BID 03/08/23 03/08/23 History Acetaminophen Tab [Tylenol] 1,000 mg PO Q6HR PRN #30 tablet 03/21/23 Rx Diphenox-Atrop 2.5-0.025 mg 1 each PO Q6HR PRN #4 tab 03/21/23 Rx [Lomotil] Famotidine [Pepcid] 20 mg PO DAILY #30 tablet 03/21/23 Rx Furosemide [Lasix] 40 mg PO DAILY #30 tablet 03/21/23 Rx Loperamide [Imodium] 2 mg PO QID cap 03/21/23 Rx Metoprolol Tartrate [Lopressor] 25 mg PO BID tab 03/21/23 Rx Potassium Chloride ER [K-Dur 20] 20 meq PO DAILY tab 03/21/23 Rx Allergies Allergy/AdvReac Type Severity Reaction Status Date / Time No Known Allergies Allergy Verified 03/08/23 10:43 Physical Exam Vitals: Vital Signs Temp Pulse Pulse Pulse Resp BP BP 03/08/23 08:46 20 03/08/23 08:45 98.8 F 65 16 124/70 03/08/23 08:18 61 20 118/53 03/08/23 08:03 109/66 03/08/23 07:58 60 14 102/50 03/08/23 07:43 59 L 16 119/62 03/08/23 07:28 97.6 F 66 12 134/70 03/08/23 04:00 99.2 F 80 20 92/45 03/08/23 03:00 78 18 104/43 03/08/23 01:34 101.3 F H 84 16 113/48 Pulse Ox 03/08/23 08:46 03/08/23 08:45 94 L 03/08/23 08:18 92 L 03/08/23 08:03 03/08/23 07:58 92 L 03/08/23 07:43 96 03/08/23 07:28 100 03/08/23 04:00 95 03/08/23 03:00 94 L 03/08/23 01:34 93 L Intake and Output 03/07/23 03/08/23 03/08/23 22:59 06:59 14:59 Intake Total 1000 300 Output Total 300 Balance 1000 0 Intake: IV 1000 300 Output: Urine 250 Estimated Blood Loss 50 Other: Voiding Method Indwelling Catheter Weight 48.988 kg 48.988 kg GENERAL DESCRIPTION: Elderly female male lying in bed, no distress. No tachypnea or accessory muscle of respiration use. HEENT: Shows Pallor , no scleral icterus. Oral mucous membrane is dry. No pharyngeal erythema or thrush NECK: Trachea central, no thyromegaly. LUNGS: Unlabored breathing. Clear to auscultation anteriorly. No wheeze or crackle. HEART: S1, S2, regular rate and rhythm. No loud murmur ABDOMEN: Soft, mild distention and tenderness EXTREMITIES: No edema of feet. SKIN: No rash, no masses palpable. NEUROLOGICAL: The patient is to be lethargic but arousable, mood and affect normal. Results CBC & Chem 7: 03/21/23 07:02 03/21/23 07:02 Labs: Abnormal Lab Results - Last 24 Hours (Table) 03/08/23 03/08/23 Range/Units 02:04 02:04 RBC 3.18 L (3.80-5.40) m/uL Hgb 10.7 L (11.4-16.0) gm/dL Hct 30.3 L (34.0-46.0) % Lymphocytes # 0.5 L (1.0-4.8) k/uL Sodium 127 L (137-145) mmol/L Carbon Dioxide 21 L (22-30) mmol/L BUN 24 H (7-17) mg/dL Creatinine 1.35 H (0.52-1.04) mg/dL Calcium 7.5 L (8.4-10.2) mg/dL Total Bilirubin 1.8 H (0.2-1.3) mg/dL AST 108 H (14-36) U/L ALT 42 H (4-34) U/L Total Protein 5.2 L (6.3-8.2) g/dL Albumin 2.5 L (3.5-5.0) g/dL Assessment and Plan (1) Bowel perforation Status: Acute Code(s): K63.1 - PERFORATION OF INTESTINE (NONTRAUMATIC) SNOMED Code(s): 60430515 (2) Peritonitis Status: Acute Code(s): K65.9 - PERITONITIS, UNSPECIFIED SNOMED Code(s): 69071137 Plan: 1patient presented hospital abdominal pain has been diagnosed with perforated colon patient with a secondary peritonitis in this patient who is status post laparotomy and right hemicolectomy we will need to cover for the polymicrobial enteric michael usually associated with colon perforation, culture has been obtained those will be followed. 2we will continue patient on Zosyn 3.375 g every 8 hours while waiting for the culture to finalize We will follow on clinical condition and cultures to further adjust medication if needed Thank you for this consultation we will follow the patient along with you Dictation was produced using [employer] dictation software. please excuse any grammatical, word or spelling errors. Time with Patient: Greater than 30
[2023-03-09] MEDS: SODIUM CHLORIDE 0.9% 1,000 ML IV SCH ×2 (04:03→21:50)
[2023-03-09] MEDS ORDERED: ACETAMINOPHEN IVPB SCH (04:30)
[2023-03-09] MEDS: PIPERACILLIN-TAZOBACTAM 3.375 GM in SODIUM CHLORIDE 0.9% 100 ML IVPB SCH ×2 (08:13→21:48)
[2023-03-09] MEDS: HEPARIN SODIUM,PORCINE 5,000 UNIT/ML 1 ML VIAL SQ SCH ×2 (08:13→17:55)
[2023-03-09] MEDS: busPIRone HCl 5 MG TAB PO SCH ×2 (08:13→21:48)
[2023-03-09] MEDS: PANTOPRAZOLE 40 MG/10 ML VIAL IV SCH (08:13)
[2023-03-09 08:55] LABS: HCT 32.3 % (37.2-46.3); HGB 10.8 d/dL (12.0-15.0); MCH 32.3 pg (27.0-32.0); MCHC 33.4 d/dL (32.0-37.0); MCV 96.7 FL (80.0-97.0); NRBC Per 100 WBC 0 X 10*3/uL (0.00-0.01); Platelet Count 259 X 10*3/uL (140-440); RBC 3.34 X 10*6/uL (4.10-5.20); RDW 13.4 % (11.5-14.5); WBC 10.26 X 10*3/uL (4.50-10.00)
[2023-03-09 09:04] LABS: ALT 26 U/L (8-44); AST 34 U/L (13-35); Albumin 2.4 d/dL (3.8-4.9); Albumin/Globulin Ratio 1.14 Ratio (1.60-3.17); Alkaline Phosphatase 73 U/L (41-126); BUN/Creat Ratio 14.67 Ratio (12.00-20.00); Blood Urea Nitrogen 26.4 mg/dL (9.0-27.0); Calcium 7.9 mg/dL (8.7-10.3); Carbon Dioxide 16.9 mmol/L (21.6-31.8); Chloride 104 mmol/L (96-109); Globulin 2.1 d/dL (1.6-3.3); Glucose 80 mg/dL (70-110); Potassium 3.7 mmol/L (3.5-5.5); Sodium 135 mmol/L (135-145); Total Bilirubin 0.7 mg/dL (0.3-1.2); Total Protein 4.5 d/dL (6.2-8.2)
[2023-03-09 09:27] LABS: Basophils # (A) 0.03 X 10*3/uL (0.00-0.10); Basophils % (A) 0.3 %; Eosinophils # (A) 0.03 X 10*3/uL (0.04-0.35); Eosinophils % (A) 0.3 %; Lymphocytes # (A) 0.59 X 10*3/uL (0.90-5.00); Lymphocytes % (A) 5.8 %; Monocytes # (A) 0.61 X 10*3/uL (0.20-1.00); Monocytes % (A) 5.9 %; Neutrophils # (A) 8.88 X 10*3/uL (1.80-7.70); Neutrophils % (A) 86.5 %
[2023-03-09] MEDS: traMADol 50 MG TAB PO PRN (12:04)
[2023-03-09] MEDS: PRAVASTATIN SODIUM 80 MG TAB PO SCH (12:05)
--- NOTE | 2023-03-09 12:09 | P.PN ---
Progress Note - Text Progress Note Date: 03/09/23 The patient feels well. She is postoperative day 1 for emergency exploratory laparotomy for right colon perforation. Patient's had no CVA flatus. Her incisional pain is well-controlled. On exam vital signs appear stable. Abdomen is soft incision is clean dry tach. Status post right colectomy. Patient will continue supportive care.
--- NOTE | 2023-03-09 13:16 | P.PN ---
Subjective Progress Note Date: 03/09/23 patient is a 87-year-old lady who is a transfer from another hospital for perforated bowel. Patient recently had colonoscopy done on Sunday, following the procedure patient started having abdominal pain. Abdominal pain was very severe, associated with nausea and vomiting. Computed tomography scan done at the hospital showed perforated colon. Patient was transferred to [facility] for surgical evaluation. Patient underwent exploratory laparotomy with right colectomy by surgery. Postoperatively medicine team were consulted for medical management 03/09. Patient seen and examined. No acute issues overnight. Patient has been afebrile. Currently on ice chips. REVIEW OF SYSTEMS: CONSTITUTIONAL: No fever, no malaise,. CARDIOVASCULAR: No chest pain, no palpitations, no syncope. PULMONARY: No shortness of breath, no cough, GASTROINTESTINAL: No diarrhea, no nausea, no vomiting, no abdominal pain. NEUROLOGICAL: No headaches, no weakness, PHYSICAL EXAMINATION: GENERAL: The patient is alert and oriented x3, not in any acute distress. Well developed, well nourished. HEENT: Pupils are round and equally reacting to light. EOMI. No scleral icterus. No conjunctival pallor. Normocephalic, atraumatic. No pharyngeal erythema. No thyromegaly. CARDIOVASCULAR: S1 and S2 present. No murmurs, rubs, or gallops. PULMONARY: Chest is clear to auscultation, no wheezing or crackles. ABDOMEN: Soft, tender, surgical incision seen, drain in place MUSCULOSKELETAL: No joint swelling or deformity. EXTREMITIES: No cyanosis, clubbing, or pedal edema. NEUROLOGICAL: Gross neurological examination did not reveal any focal deficits. SKIN: No rashes. Assessment and plan Perforated colon status post exploratory laparotomy with right colectomy Hyponatremia Acute kidney injury Elevated LFTs Monitor vital signs Monitor CBC Monitor CMP Continue IV fluids Continue IV Zosyn Currently on ice chips, advance diet per surgery Continue pain management per surgery ID following Labs and medication were reviewed.. Continue same treatment. Continue with symptomatic treatment. Resume home medication. Monitor labs and vitals. DVT and GI prophylaxis. Further recommendations as per clinical course of the patient Dictation was produced using [employer] dictation software. please excuse any grammatical, word or spelling errors. Objective - Vital Signs Vital signs: Vital Signs Temp 98.3 F 03/09/23 07:17 Pulse 99 03/09/23 07:17 Resp 18 03/09/23 07:17 BP 136/74 03/09/23 07:17 Pulse Ox 97 03/09/23 07:17 FiO2 Intake & Output 03/08/23 03/09/23 03/09/23 18:59 06:59 18:59 Intake Total 300 Output Total 600 300 Balance -300 -300 Weight 48.988 kg Intake: IV 300 Output: Drainage 0 Lower Abdomen 0 Urine 550 300 Estimated Blood Loss 50 Other: Voiding Method Indwelling Catheter Indwelling Catheter Indwelling Catheter # Bowel Movements 0 - Labs CBC & Chem 7: 03/09/23 05:48 03/09/23 05:48 Labs: Abnormal Lab Results - Last 24 Hours (Table) 03/09/23 03/09/23 Range/Units 05:48 05:48 WBC 10.26 H (4.50-10.00) X 10*3/uL RBC 3.34 L (4.10-5.20) X 10*6/uL Hgb 10.8 L (12.0-15.0) d/dL Hct 32.3 L (37.2-46.3) % MCH 32.3 H (27.0-32.0) pg Neutrophils # 8.88 H (1.80-7.70) X 10*3/uL Lymphocytes # 0.59 L (0.90-5.00) X 10*3/uL Eosinophils # 0.03 L (0.04-0.35) X 10*3/uL Carbon Dioxide 16.9 L (21.6-31.8) mmol/L Anion Gap 14.10 H (4.00-12.00) mmol/L Creatinine 1.8 H (0.6-1.5) mg/dL Est GFR (CKD-EPI) 27 L (>=60) Calcium 7.9 L (8.7-10.3) mg/dL Total Protein 4.5 L (6.2-8.2) d/dL Albumin 2.4 L (3.8-4.9) d/dL Albumin/Globulin Ratio 1.14 L (1.60-3.17) Ratio Microbiology - Last 24 Hours (Table) 03/08/23 07:20 Gram Stain - Preliminary Abdomen Wound Culture - Preliminary Gram Neg Bacilli
--- NOTE | 2023-03-09 16:33 | P.PN ---
Subjective Progress Note Date: 03/09/23 Principal diagnosis: Perforated bowel and peritonitis Patient is a 87-year-old female with a past medical history difficult for CVA/TIA, hypertension and heart failure along with anxiety presenting to the hospital with abdominal pain apparently the patient recently did have a colonoscopy before her abdominal pain started patient was evaluated at the outside facility with the patient was noticed to have a perforated colon, patient was taken to the OR and status post right hemicolectomy and abdominal cultures. On today's evaluation that is 03/09/2023, the patient denies having any fever or any chills, she is pretty comfortable on room air no chest pain or shortness of breath or cough abdominal pain is currently controlled no nausea no vomiting patient white count of 10.26 creatinine is 1.8 abdominal cultures with gram- negative bacilli Objective - Vital Signs Vital signs: Vital Signs Temp 98.3 F 03/09/23 07:17 Pulse 99 03/09/23 07:17 Resp 18 03/09/23 07:17 BP 136/74 03/09/23 07:17 Pulse Ox 97 03/09/23 07:17 FiO2 Intake & Output 03/08/23 03/09/23 03/09/23 18:59 06:59 18:59 Intake Total 300 Output Total 600 300 Balance -300 -300 Weight 48.988 kg Intake: IV 300 Output: Drainage 0 Lower Abdomen 0 Urine 550 300 Estimated Blood Loss 50 Other: Voiding Method Indwelling Catheter Indwelling Catheter Indwelling Catheter # Bowel Movements 0 - Exam GENERAL DESCRIPTION: An alert female up in the chair in no distress RESPIRATORY SYSTEM: Unlabored breathing , decreased breath sounds at bases HEART: S1 S2 regular rate and rhythm , ABDOMEN: Soft , no tenderness EXTREMITIES: No edema feet - Labs CBC & Chem 7: 03/09/23 05:48 03/09/23 05:48 Labs: Abnormal Lab Results - Last 24 Hours (Table) 03/09/23 03/09/23 Range/Units 05:48 05:48 WBC 10.26 H (4.50-10.00) X 10*3/uL RBC 3.34 L (4.10-5.20) X 10*6/uL Hgb 10.8 L (12.0-15.0) d/dL Hct 32.3 L (37.2-46.3) % MCH 32.3 H (27.0-32.0) pg Neutrophils # 8.88 H (1.80-7.70) X 10*3/uL Lymphocytes # 0.59 L (0.90-5.00) X 10*3/uL Eosinophils # 0.03 L (0.04-0.35) X 10*3/uL Carbon Dioxide 16.9 L (21.6-31.8) mmol/L Anion Gap 14.10 H (4.00-12.00) mmol/L Creatinine 1.8 H (0.6-1.5) mg/dL Est GFR (CKD-EPI) 27 L (>=60) Calcium 7.9 L (8.7-10.3) mg/dL Total Protein 4.5 L (6.2-8.2) d/dL Albumin 2.4 L (3.8-4.9) d/dL Albumin/Globulin Ratio 1.14 L (1.60-3.17) Ratio Microbiology - Last 24 Hours (Table) 03/08/23 07:20 Gram Stain - Preliminary Abdomen Wound Culture - Preliminary Gram Neg Bacilli Assessment and Plan (1) Peritonitis Current Visit: Yes Status: Acute Code(s): K65.9 - PERITONITIS, UNSPECIFIED SNOMED Code(s): 64641828 (2) Bowel perforation Current Visit: Yes Status: Acute Code(s): K63.1 - PERFORATION OF INTESTINE (NONTRAUMATIC) SNOMED Code(s): 10858470 Plan: 1patient presented hospital abdominal pain has been diagnosed with perforated colon patient with a secondary peritonitis in this patient who is status post laparotomy and right hemicolectomy we will need to cover for the polymicrobial enteric michael usually associated with colon perforation, culture has been obtained, currently growing gram-negative bacilli with ID sensitivities pending 2we will continue patient on Zosyn 3.375 g every 8 hours while waiting for the culture to finalize Family at the bedside questions were answered Dictation was produced using [email or web address] dictation software. please excuse any grammatical, word or spelling errors. Time with Patient: Less than 30
[2023-03-09] MEDS: LORazepam 0.5 MG TAB PO SCH (21:48)
[2023-03-10] MEDS: HEPARIN SODIUM,PORCINE 5,000 UNIT/ML 1 ML VIAL SQ SCH ×2 (00:22→10:08)
[2023-03-10] MEDS: SODIUM CHLORIDE 0.9% 1,000 ML IV SCH ×2 (10:07→20:40)
[2023-03-10] MEDS: busPIRone HCl 5 MG TAB PO SCH ×2 (10:08→20:40)
[2023-03-10] MEDS: PRAVASTATIN SODIUM 80 MG TAB PO SCH (10:08)
[2023-03-10] MEDS: PANTOPRAZOLE 40 MG/10 ML VIAL IV SCH (10:08)
[2023-03-10] MEDS: PIPERACILLIN-TAZOBACTAM 3.375 GM in SODIUM CHLORIDE 0.9% 100 ML IVPB SCH ×2 (10:09→20:40)
--- NOTE | 2023-03-10 10:35 | P.PN ---
Progress Note - Text Progress Note Date: 03/10/23 Patient is stable. She's had flatus and bowel movement. On exam vital signs are stable. Abdomen soft. Incisions clean dry tach. Since was read colectomy for colon perforation related to colonoscopy. Patient will have her diet advanced.
[2023-03-10] MEDS ORDERED: amLODIPine 5 MG TAB PO SCH (12:15)
[2023-03-10] MEDS: PROPAFENONE 150 MG TAB PO SCH ×2 (12:45→20:41)
[2023-03-10] MEDS: PROPRANOLOL LA 60 MG CAP.SA.24H PO SCH ×2 (12:45→20:41)
[2023-03-10] MEDS: NIFEdipine XL 30 MG TAB.ER.24 PO SCH (12:45)
[2023-03-10] MEDS: TOPIRAMATE 25 MG TAB PO SCH (12:46)
[2023-03-10] MEDS: APIXABAN 2.5 MG TABLET PO SCH ×2 (12:54→20:40)
[2023-03-10] MEDS ORDERED: DILTIAZEM DRIP BOLUS FROM BAG 1 MG SOLN IV ONE ×2 (13:40→13:43)
[2023-03-10] MEDS: DILTIAZEM 125 MG in SODIUM CHLORIDE 0.9% 100 ML IV SCH ×2 (13:51→21:11)
--- NOTE | 2023-03-10 14:40 | P.PN ---
Subjective Progress Note Date: 03/10/23 Principal diagnosis: Perforated bowel and peritonitis Patient is a 87-year-old female with a past medical history difficult for CVA/TIA, hypertension and heart failure along with anxiety presenting to the hospital with abdominal pain apparently the patient recently did have a colonoscopy before her abdominal pain started patient was evaluated at the outside facility with the patient was noticed to have a perforated colon, patient was taken to the OR and status post right hemicolectomy and abdominal cultures. On today's evaluation that is 03/10/2023 the patient remains to be afebrile, the patient is breathing comfortably on room air patient denies having any chest pain shortness of breath or cough has been complaining of mostly gas and burping but no vomiting has been reported by the nursing staff. Patient did have vital of 10.26 as of yesterday creatinine is 1.8 no labs were drawn today abdominal cultures currently growing gram-negative bacilli with ID sensitivities pending. Objective - Vital Signs Vital signs: Vital Signs Temp 97.3 F L 03/10/23 07:37 Pulse 99 03/10/23 07:37 Resp 19 03/10/23 07:37 BP 154/72 03/10/23 07:37 Pulse Ox 95 03/10/23 07:37 FiO2 Intake & Output 03/09/23 03/10/23 03/10/23 18:59 06:59 18:59 Output Total 410 400 Balance -410 -400 Weight 48.5 kg Output: Drainage 0 Lower Abdomen 0 Urine 410 400 Other: Voiding Method Indwelling Catheter Indwelling Catheter - Exam GENERAL DESCRIPTION: An alert female up in the chair in no distress RESPIRATORY SYSTEM: Unlabored breathing , decreased breath sounds at bases HEART: S1 S2 regular rate and rhythm , ABDOMEN: Soft , no tenderness EXTREMITIES: No edema feet - Labs CBC & Chem 7: 03/09/23 05:48 03/09/23 05:48 Labs: Microbiology - Last 24 Hours (Table) 03/08/23 07:20 Gram Stain - Preliminary Abdomen Wound Culture - Preliminary Gram Neg Bacilli Assessment and Plan (1) Peritonitis Current Visit: Yes Status: Acute Code(s): K65.9 - PERITONITIS, UNSPECIFIED SNOMED Code(s): 51345322 (2) Bowel perforation Current Visit: Yes Status: Acute Code(s): K63.1 - PERFORATION OF INTESTINE (NONTRAUMATIC) SNOMED Code(s): 48277526 Plan: 1patient presented hospital abdominal pain has been diagnosed with perforated colon patient with a secondary peritonitis in this patient who is status post laparotomy and right hemicolectomy we will need to cover for the polymicrobial enteric michael usually associated with colon perforation, culture has been obtained, currently growing gram-negative bacilli with ID sensitivities pending 2Patient did have some clinical improvement is afebrile abdominal cultures currently pending blood culture patient on Zosyn while waiting for the culture to finalize and monitor clinical course closely Dictation was produced using [employer] dictation software. please excuse any grammatical, word or spelling errors.
--- NOTE | 2023-03-10 15:02 | P.PN ---
Subjective Progress Note Date: 03/10/23 patient is a 87-year-old lady who is a transfer from another hospital for perforated bowel. Patient recently had colonoscopy done on Sunday, following the procedure patient started having abdominal pain. Abdominal pain was very severe, associated with nausea and vomiting. Computed tomography scan done at the hospital showed perforated colon. Patient was transferred to [facility] for surgical evaluation. Patient underwent exploratory laparotomy with right colectomy by surgery. Postoperatively medicine team were consulted for medical management 03/09. Patient seen and examined. No acute issues overnight. Patient has been afebrile. Currently on ice chips. 03/10. Patient seen and examined. Telemetry showing A. fib with RVR, patient history of prior A. fib. Patient started on Cardizem drip, will transfer patient to stepdown REVIEW OF SYSTEMS: CONSTITUTIONAL: No fever, no malaise,. CARDIOVASCULAR: No chest pain, no palpitations, no syncope. PULMONARY: No shortness of breath, no cough, GASTROINTESTINAL: No diarrhea, no nausea, no vomiting, no abdominal pain. NEUROLOGICAL: No headaches, no weakness, PHYSICAL EXAMINATION: GENERAL: The patient is alert and oriented x3, not in any acute distress. Well developed, well nourished. HEENT: Pupils are round and equally reacting to light. EOMI. No scleral icterus. No conjunctival pallor. Normocephalic, atraumatic. No pharyngeal erythema. No thyromegaly. CARDIOVASCULAR: S1 and S2 present. No murmurs, rubs, or gallops. PULMONARY: Chest is clear to auscultation, no wheezing or crackles. ABDOMEN: Soft, tender, surgical incision seen, drain in place MUSCULOSKELETAL: No joint swelling or deformity. EXTREMITIES: No cyanosis, clubbing, or pedal edema. NEUROLOGICAL: Gross neurological examination did not reveal any focal deficits. SKIN: No rashes. Assessment and plan Perforated colon status post exploratory laparotomy with right colectomy Hyponatremia Acute kidney injury Elevated LFTs Monitor vital signs Monitor CBC Monitor CMP Continue IV fluids Continue IV Zosyn Start Cardizem drip Consult cardiology Currently liquid diet Continue pain management per surgery ID following Labs and medication were reviewed.. Continue same treatment. Continue with s ymptomatic treatment. Resume home medication. Monitor labs and vitals. DVT and GI prophylaxis. Further recommendations as per clinical course of the patient Dictation was produced using dragon dictation software. please excuse any grammatical, word or spelling errors. Objective - Vital Signs Vital signs: Vital Signs Temp 97.3 F L 03/10/23 07:37 Pulse 99 03/10/23 08:35 Resp 19 03/10/23 08:35 BP 154/72 03/10/23 07:37 Pulse Ox 95 03/10/23 07:37 FiO2 Intake & Output 03/09/23 03/10/23 03/10/23 18:59 06:59 18:59 Output Total 410 400 Balance -410 -400 Weight 48.5 kg Output: Drainage 0 Lower Abdomen 0 Urine 410 400 Other: Voiding Method Indwelling Catheter Indwelling Catheter Indwelling Catheter - Labs CBC & Chem 7: 03/09/23 05:48 03/09/23 05:48 Labs: Microbiology - Last 24 Hours (Table) 03/08/23 07:20 Gram Stain - Preliminary Abdomen Wound Culture - Preliminary Klebsiella ornithinolytica
[2023-03-10] MEDS: LORazepam 0.5 MG TAB PO SCH (20:40)
[2023-03-11] MEDS: DILTIAZEM 125 MG in SODIUM CHLORIDE 0.9% 100 ML IV SCH (03:41)
--- NOTE | 2023-03-11 07:27 | P.CRDCN ---
History of Present Illness Consult date: 03/11/23 Chief complaint: Abdominal discomfort History of present illness: The patient is an 87-year-old female patient with a past medical history signif icant for paroxysmal atrial fibrillation maintaining on oral anticoagulation with a course as well as hypertension and dyslipidemia and history of TIA. We requested to see the patient for further evaluation of atrial fibrillation with rapid ventricular response. The patient presented to the hospital 3 days ago complaining of abdominal discomfort. She underwent exploratory laparotomy with colectomy. She was initially on the surgical floor and she went into atrial fibrillation with rapid ventricular response and she was transferred to [facility]. She was started on Cardizem IV and converted to normal sinus mechanism. She reports no cardiovascular symptoms. She has no palpitation or heart racing and no dizziness or lightheadedness and no presyncope or syncope and no symptoms of chest pain or chest discomfort or shortness of breath at this point. She has been maintaining normal sinus mechanism since she is converted and she continues to be on Cardizem IV which I'm going to stop and start her on oral AV brook kory agents was Toprol-XL. She is already on oral anticoagulation. She is known to our service from before and she was seen in 2016 where she underwent an echo at that point and that revealed normal LV systolic function with no significant valvular abnormalities. The examination is remarkable for regular rhythm with a systolic murmur at the right and left upper sternal border with a clear breathing sounds bilaterally and no lower extremity edema noted Assessment Status post exploratory laparotomy with colectomy Atrial fibrillation with RVR in a patient who was known to have paroxysmal atrial fibrillation History of TIA Hypertension and dyslipidemia Plan EC Cardizem IV and start the patient on Toprol-XL Continue oral anticoagulation Follow-up with the patient Past Medical History Past Medical History: Atrial Fibrillation, Heart Failure, CVA/TIA, Hypertension Additional Past Medical History / Comment(s): anxiety History of Any Multi-Drug Resistant Organisms: None Reported Past Surgical History: Back Surgery, Tubal Ligation Additional Past Surgical History / Comment(s): exploatory laprotomy with right colectomy 03/08/[address] quinn due to perforated bowel after a colonoscopy at a different facility on 03/05/23. Past Anesthesia/Blood Transfusion Reactions: No Reported Reaction Past Psychological History: Anxiety Smoking Status: Never smoker Past Alcohol Use History: None Reported Past Drug Use History: None Reported - Past Family History Father Family Medical History: CVA/TIA Mother Family Medical History: Cancer Additional Family Medical History / Comment(s): Mother had bladder cancer Medications and Allergies Home Medications Medication Instructions Recorded Confirmed Type LORazepam [Lorazepam] 0.5 mg PO HS 04/02/16 03/08/23 History Pravastatin Sodium [Pravachol] 80 mg PO DAILY 04/02/16 03/08/23 History Apixaban [Eliquis] 2.5 mg PO BID tablet 04/06/16 03/08/23 Rx Calcium/Vitamin D(Unknown Dose) 1 tab PO DAILY 03/08/23 03/08/23 History NIFEdipine XL [Procardia Xl] 30 mg PO DAILY 03/08/23 03/08/23 History Primidone 125mg 125 mg PO HS 03/08/23 03/08/23 History Propafenone [Rythmol] 150 mg PO BID 03/08/23 03/08/23 History Propranolol LA [Inderal LA] 60 mg PO BID 03/08/23 03/08/23 History Topiramate [Topamax] 50 mg PO DAILY 03/08/23 03/08/23 History Vitamin C(Unknown Dose) 1 tab PO DAILY 03/08/23 03/08/23 History amLODIPine [Norvasc] 5 mg PO DAILY 03/08/23 03/08/23 History busPIRone HCl [Buspar] 5 mg PO BID 03/08/23 03/08/23 History Allergies Allergy/AdvReac Type Severity Reaction Status Date / Time No Known Allergies Allergy Verified 03/08/23 10:43 Physical Exam Vitals: Vital Signs Temp Pulse Pulse Resp BP Pulse Ox 03/11/23 04:00 88 18 104/54 94 L 03/11/23 00:00 93 18 132/73 95 03/10/23 20:00 98.1 F 101 H 18 121/69 95 03/10/23 16:00 168 H 18 122/72 96 03/10/23 08:35 61 99 19 03/10/23 07:37 97.3 F L 99 19 154/72 95 Intake and Output 03/10/23 03/11/23 03/11/23 22:59 06:59 14:59 Intake Total 83.167 637.5 Output Total 350 Balance -266.833 637.5 Intake: Intake, IV Titration 83.167 97.5 Amount Diltiazem 125 mg In 83.167 97.5 Sodium Chloride 0.9% 100 ml @ 5 MG/HR 5 mls/hr IV .Q24H [facility] Rx#:[id number] Oral 540 Output: Drainage 0 Lower Abdomen 0 Urine 350 Other: Voiding Method Indwelling Catheter Indwelling Catheter Results 03/09/23 05:48 03/09/23 05:48 Current Medications Generic Name Dose Route Start Last Admin Trade Name Freq PRN Reason Stop Dose Admin Acetaminophen 650 mg 03/08/23 02:03 03/08/23 03:37 Acetaminophen Tab 325 Mg Tab PO 650 mg Q6HR PRN Administration Mild Pain or Fever > 100.5 Apixaban 2.5 mg 03/10/23 12:15 03/10/23 20:40 Apixaban 2.5 Mg Tablet PO 2.5 mg BID THOMAS Administration Protocol Buspirone HCl 5 mg 03/08/23 21:00 03/10/23 20:40 Buspirone Hcl 5 Mg Tab PO 5 mg BID THOMAS Administration Fentanyl Citrate 25 mcg 03/08/23 02:02 Fentanyl (Pf) 50 Mcg/Ml 2 Ml Amp IVP Q4HR PRN Severe Pain (Scale 7 to 10) Hydromorphone HCl 0.5 mg 03/08/23 07:30 03/09/23 08:06 Hydromorphone 0.5 Mg/0.5 Ml Syringe IVP 0.5 mg Q3HR PRN Administration Moderate Pain (Scale 4 to 6) Hydromorphone HCl 1 mg 03/08/23 07:30 Hydromorphone 1 Mg/Ml 1 Ml Syringe IVP Q4HR PRN Severe Pain (Scale 7 to 10) Sodium Chloride 1,000 mls @ 75 mls/hr 03/08/23 02:15 03/10/23 20:40 Saline 0.9% IV 75 mls/hr .[id number] THOMAS Administration Piperacillin Sod/Tazobactam 100 mls @ 25 mls/hr 03/09/23 21:00 03/10/23 20:40 Sod 3.375 gm/ Sodium Chloride IVPB 25 mls/hr Q12HR THOMAS Administration Protocol Diltiazem HCl 125 mg/ Sodium 125 mls @ 5 mls/hr 03/10/23 13:00 03/11/23 03:41 Chloride IV 15 mg/hr .Q24H [facility]OMAS 15 mls/hr Administration 5 MG/HR Lorazepam 0.5 mg 03/08/23 21:00 03/10/23 20:40 Lorazepam 0.5 Mg Tab PO 0.5 mg HS THOMAS Administration Naloxone HCl 0.2 mg 03/08/23 02:03 Naloxone 0.4 Mg/Ml 1 Ml Vial IV Q2M PRN Opioid Reversal Nifedipine 30 mg 03/10/23 12:15 03/10/23 12:45 Nifedipine Xl 30 Mg Tab.Er.24 PO 30 mg DAILY THOMAS Administration Ondansetron HCl 4 mg 03/08/23 07:30 Ondansetron 4 Mg/2 Ml Vial IVP Q6HR PRN Nausea And Vomiting Pantoprazole Sodium 40 mg 03/08/23 09:00 03/10/23 10:08 Pantoprazole 40 Mg/10 Ml Vial IV 40 mg DAILY THOMAS Administration Pravastatin Sodium 80 mg 03/09/23 09:00 03/10/23 10:08 Pravastatin Sodium 80 Mg Tab PO 80 mg DAILY THOMAS Administration Propafenone HCl 150 mg 03/10/23 12:15 03/10/23 20:41 Propafenone 150 Mg Tab PO 150 mg BID THOMAS Administration Propranolol HCl 60 mg 03/10/23 12:15 03/10/23 20:41 Propranolol La 60 Mg Cap.Sa.24h PO 60 mg BID THOMAS Administration Topiramate 50 mg 03/10/23 12:15 03/10/23 12:46 Topiramate 25 Mg Tab PO 50 mg DAILY THOMAS Administration Tramadol HCl 50 mg 03/08/23 07:30 03/09/23 12:04 Tramadol 50 Mg Tab PO 50 mg Q6H PRN Administration Moderate Pain (Scale 4 to 6) Intake and Output 03/10/23 03/11/23 03/11/23 22:59 06:59 14:59 Intake Total 83.167 637.5 Output Total 350 Balance -266.833 637.5 Intake: Intake, IV Titration 83.167 97.5 Amount Diltiazem 125 mg In 83.167 97.5 Sodium Chloride 0.9% 100 ml @ 5 MG/HR 5 mls/hr IV .Q24H [facility] Rx#:[id number] Oral 540 Output: Drainage 0 Lower Abdomen 0 Urine 350 Other: Voiding Method Indwelling Catheter Indwelling Catheter 03/09/23 05:48 03/09/23 05:48
[2023-03-11] MEDS: busPIRone HCl 5 MG TAB PO SCH ×2 (09:24→20:20)
[2023-03-11] MEDS: TOPIRAMATE 25 MG TAB PO SCH (09:24)
[2023-03-11] MEDS: PROPAFENONE 150 MG TAB PO SCH ×2 (09:24→20:20)
[2023-03-11] MEDS: APIXABAN 2.5 MG TABLET PO SCH ×2 (09:24→20:20)
[2023-03-11] MEDS: NIFEdipine XL 30 MG TAB.ER.24 PO SCH (09:24)
[2023-03-11] MEDS: PRAVASTATIN SODIUM 80 MG TAB PO SCH (09:24)
[2023-03-11] MEDS: PANTOPRAZOLE 40 MG/10 ML VIAL IV SCH (09:25)
[2023-03-11] MEDS: PIPERACILLIN-TAZOBACTAM 3.375 GM in SODIUM CHLORIDE 0.9% 100 ML IVPB SCH ×2 (09:25→20:20)
[2023-03-11] MEDS: METOPROLOL SUCCINATE (ER) 25 MG TAB.ER.24H PO SCH (09:25)
[2023-03-11] MEDS: SODIUM CHLORIDE 0.9% 1,000 ML IV SCH (12:44)
--- NOTE | 2023-03-11 13:34 | P.PN ---
Subjective Progress Note Date: 03/11/23 patient is a 87-year-old lady who is a transfer from another hospital for perforated bowel. Patient recently had colonoscopy done on Sunday, following the procedure patient started having abdominal pain. Abdominal pain was very severe, associated with nausea and vomiting. Computed tomography scan done at the hospital showed perforated colon. Patient was transferred to [facility] for surgical evaluation. Patient underwent exploratory laparotomy with right colectomy by surgery. Postoperatively medicine team were consulted for medical management 03/09. Patient seen and examined. No acute issues overnight. Patient has been afebrile. Currently on ice chips. 03/10. Patient seen and examined. Telemetry showing A. fib with RVR, patient history of prior A. fib. Patient started on Cardizem drip, will transfer patient to stepdown 03/11. Patient seen and examined. A. fib better controlled. Denies any chest pain or shortness of breath REVIEW OF SYSTEMS: CONSTITUTIONAL: No fever, no malaise,. CARDIOVASCULAR: No chest pain, no palpitations, no syncope. PULMONARY: No shortness of breath, no cough, GASTROINTESTINAL: No diarrhea, no nausea, no vomiting, no abdominal pain. NEUROLOGICAL: No headaches, no weakness, PHYSICAL EXAMINATION: GENERAL: The patient is alert and oriented x3, not in any acute distress. Well developed, well nourished. HEENT: Pupils are round and equally reacting to light. EOMI. No scleral icterus. No conjunctival pallor. Normocephalic, atraumatic. No pharyngeal erythema. No thyromegaly. CARDIOVASCULAR: S1 and S2 present. No murmurs, rubs, or gallops. PULMONARY: Chest is clear to auscultation, no wheezing or crackles. ABDOMEN: Soft, tender, surgical incision seen, drain in place MUSCULOSKELETAL: No joint swelling or deformity. EXTREMITIES: No cyanosis, clubbing, or pedal edema. NEUROLOGICAL: Gross neurological examination did not reveal any focal deficits. SKIN: No rashes. Assessment and plan Perforated colon status post exploratory laparotomy with right colectomy Hyponatremia Acute kidney injury Elevated LFTs A. fib with RVR History of TIA Hypertension dyslipidemia Monitor vital signs Monitor CBC Monitor CMP Continue IV Zosyn DC Cardizem drip, start Toprol Continue Eliquis Consult cardiology Currently liquid diet Continue pain management per surgery ID following Cardiology following Labs and medication were reviewed.. Continue same treatment. Continue with symptomatic treatment. Resume home medication. Monitor labs and vitals. DVT and GI prophylaxis. Further recommendations as per clinical course of the patient Dictation was produced using [employer] dictation software. please excuse any grammatical, word or spelling errors. Objective - Vital Signs Vital signs: Vital Signs Temp 97.1 F L 03/11/23 09:09 Pulse 97 03/11/23 12:42 Resp 18 03/11/23 12:42 BP 132/60 03/11/23 12:42 Pulse Ox 97 03/11/23 12:42 FiO2 Intake & Output 03/10/23 03/11/23 03/11/23 18:59 06:59 18:59 Intake Total 31.417 689.25 180 Output Total 350 0 200 Balance -318.583 689.25 -20 Intake: Intake, IV Titration 31.417 149.25 Amount Diltiazem 125 mg In 31.417 149.25 Sodium Chloride 0.9% 100 ml @ 5 MG/HR 5 mls/hr IV .Q24H [facility] Rx#:[id number] Oral 540 180 Output: Drainage 0 0 Lower Abdomen 0 0 Urine 350 200 Other: Voiding Method Indwelling Catheter Indwelling Catheter Indwelling Catheter - Labs CBC & Chem 7: 03/09/23 05:48 03/09/23 05:48 Labs: Microbiology - Last 24 Hours (Table) 03/08/23 07:20 Gram Stain - Final Abdomen Wound Culture - Final Klebsiella ornithinolytica Morganella morganii
--- NOTE | 2023-03-11 14:06 | P.PN ---
Progress Note - Text Progress Note Date: 03/11/23 The patient's resting comfortably in her bed. She threw up part of her lunch. On exam vital signs appear stable. Abdomen soft. Incisions clean dry tach. Status post right colectomy. Patient has developed an ileus. The patient will remain nothing by mouth for the rest the day. She will start resuming her clear liquids tomorrow.
[2023-03-11 14:28] LABS: ALT 15 U/L (4-34); AST 26 U/L (14-36); African American GFR (CKD) 22 (>60 ml/min/1.73 sqM); Albumin 2.3 g/dL (3.5-5.0); Alkaline Phosphatase 113 U/L (38-126); Anion Gap 11 mmol/L; Blood Urea Nitrogen 38 mg/dL (7-17); Calcium 7.7 mg/dL (8.4-10.2); Carbon Dioxide 14 mmol/L (22-30); Chloride 111 mmol/L (98-107); Glucose 161 mg/dL (74-99); Non-African American GFR(CKD) 19 (>60 ml/min/1.73 sqM); Potassium 3.5 mmol/L (3.5-5.1); Sodium 136 mmol/L (137-145); Total Bilirubin 0.6 mg/dL (0.2-1.3); Total Protein 4.9 g/dL (6.3-8.2)
[2023-03-11 14:33] LABS: HCT 37.3 % (34.0-46.0); HGB 12.1 gm/dL (11.4-16.0); MCH 31.9 pg (25.0-35.0); MCHC 32.4 g/dL (31.0-37.0); MCV 98.2 fL (80.0-100.0); Mean Platelet Volume 8.3; Platelet Count 219 k/uL (150-450); RDW 13.9 % (11.5-15.5); WBC 11.4 k/uL (3.8-10.6)
[2023-03-11 15:34] LABS: Band Neutrophils % 4 %; Eosinophils # (M) 0.11 k/uL (0-0.7); Lymphocytes # (M) 0.57 k/uL (1.0-4.8); Metamyelocytes # (M) 0.23 k/uL (0); Metamyelocytes % 2 %; Monocytes # (M) 0.91 k/uL (0-1.0); Myelocytes # (M) 0.23 k/uL (0); Myelocytes % 2 %; Neutrophils % (M) 79 %; Nucleated Red Blood Cells 0 /100 WBC (0-0); Total Cells Counted 200
[2023-03-11 15:35] LABS: Poikilocytosis (M) Present
[2023-03-11] MEDS: LORazepam 0.5 MG TAB PO SCH (20:20)
--- NOTE | 2023-03-12 07:49 | P.PN ---
Subjective Progress Note Date: 03/11/23 Principal diagnosis: Perforated bowel and peritonitis Patient is a 87-year-old female with a past medical history difficult for CVA/TIA, hypertension and heart failure along with anxiety presenting to the hospital with abdominal pain apparently the patient recently did have a colonoscopy before her abdominal pain started patient was evaluated at the outside facility with the patient was noticed to have a perforated colon, patient was taken to the OR and status post right hemicolectomy and abdominal cultures.Patient did well due to A-fib with RVR for the patient was transferred to cardiology unit. On today's evaluation that is 03/11/2023, patient is afebrile, the patient is breathing comfortably on room air patient denies having any chest pain shortness of breath or cough patient be complaining of feeling like she has to go but did not have any bowel movement no nausea no vomiting has been reported. Patient white count is 11.4 creatinine slightly up to 2.28 abdominal culture positive for Klebsiella and Morganella which is slightly resistant but sensitive to Zosyn Objective - Vital Signs Vital signs: Vital Signs Temp 97.2 F L 03/11/23 20:00 Pulse 85 03/11/23 20:00 Resp 18 03/11/23 20:00 BP 123/58 03/11/23 20:00 Pulse Ox 96 03/11/23 20:00 FiO2 Intake & Output 03/11/23 03/11/23 03/12/23 06:59 18:59 06:59 Intake Total 689.25 360 Output Total 0 500 0 Balance 689.25 -140 0 Intake: Intake, IV Titration 149.25 Amount Diltiazem 125 mg In 149.25 Sodium Chloride 0.9% 100 ml @ 5 MG/HR 5 mls/hr IV .Q24H [facility] Rx#:[id number] Oral 540 360 Output: Drainage 0 0 0 Lower Abdomen 0 0 0 Urine 200 Other 300 Other: Voiding Method Indwelling Catheter Indwelling Catheter Indwelling Catheter - Exam GENERAL DESCRIPTION: An alert female up in the chair in no distress RESPIRATORY SYSTEM: Unlabored breathing , decreased breath sounds at bases HEART: S1 S2 regular rate and rhythm , ABDOMEN: Soft , no tenderness EXTREMITIES: No edema feet - Labs CBC & Chem 7: 03/11/23 13:45 03/11/23 13:45 Labs: Abnormal Lab Results - Last 24 Hours (Table) 03/11/23 03/11/23 Range/Units 13:45 13:45 WBC 11.4 H (3.8-10.6) k/uL Neutrophils # (Manual) 9.40 H (1.3-7.7) k/uL Lymphocytes # (Manual) 0.57 L (1.0-4.8) k/uL Metamyelocytes # (Man) 0.23 H (0) k/uL Myelocytes # (Manual) 0.23 H (0) k/uL Sodium 136 L (137-145) mmol/L Chloride 111 H (98-107) mmol/L Carbon Dioxide 14 L (22-30) mmol/L BUN 38 H (7-17) mg/dL Creatinine 2.28 H (0.52-1.04) mg/dL Glucose 161 H (74-99) mg/dL Calcium 7.7 L (8.4-10.2) mg/dL Total Protein 4.9 L (6.3-8.2) g/dL Albumin 2.3 L (3.5-5.0) g/dL Microbiology - Last 24 Hours (Table) 03/08/23 07:20 Anaerobic Culture - Preliminary Abdomen Anaerobic Gm Negative Bacilli 03/08/23 07:20 Gram Stain - Final Abdomen Wound Culture - Final Klebsiella ornithinolytica Morganella morganii Assessment and Plan (1) Peritonitis Current Visit: Yes Status: Acute Code(s): K65.9 - PERITONITIS, UNSPECIFIED SNOMED Code(s): 64470365 (2) Bowel perforation Current Visit: Yes Status: Acute Code(s): K63.1 - PERFORATION OF INTESTINE (NONTRAUMATIC) SNOMED Code(s): 67755798 Plan: 1patient presented hospital abdominal pain has been diagnosed with perforated colon patient with a secondary peritonitis in this patient who is status post la parotomy and right hemicolectomy we will need to cover for the polymicrobial enteric michael usually associated with colon perforation, culture has been obtained, currently growing Klebsiella drug-resistant Morganella and anaerobes. 2we will keep the patient on Zosyn we will monitor clinical course closely question concern were answered in layman term Dictation was produced using [employer] dictation software. please excuse any grammatical, word or spelling errors.
[2023-03-12] MEDS: NIFEdipine XL 30 MG TAB.ER.24 PO SCH (08:54)
[2023-03-12] MEDS: APIXABAN 2.5 MG TABLET PO SCH ×2 (08:54→20:09)
[2023-03-12] MEDS: TOPIRAMATE 25 MG TAB PO SCH (08:54)
[2023-03-12] MEDS: METOPROLOL SUCCINATE (ER) 25 MG TAB.ER.24H PO SCH (08:55)
[2023-03-12] MEDS: PANTOPRAZOLE 40 MG/10 ML VIAL IV SCH (08:55)
[2023-03-12] MEDS: PIPERACILLIN-TAZOBACTAM 3.375 GM in SODIUM CHLORIDE 0.9% 100 ML IVPB SCH ×2 (08:55→20:08)
[2023-03-12] MEDS: busPIRone HCl 5 MG TAB PO SCH ×2 (08:55→20:09)
[2023-03-12] MEDS: PRAVASTATIN SODIUM 80 MG TAB PO SCH (08:56)
[2023-03-12] MEDS: PROPAFENONE 150 MG TAB PO SCH ×2 (08:56→20:09)
[2023-03-12 10:02] LABS: ALT 14 U/L (4-34); AST 26 U/L (14-36); African American GFR (CKD) 21 (>60 ml/min/1.73 sqM); Albumin 2.3 g/dL (3.5-5.0); Alkaline Phosphatase 103 U/L (38-126); Blood Urea Nitrogen 45 mg/dL (7-17); Calcium 7.8 mg/dL (8.4-10.2); Carbon Dioxide 13 mmol/L (22-30); Glucose 128 mg/dL (74-99); Non-African American GFR(CKD) 18 (>60 ml/min/1.73 sqM); Total Bilirubin 0.6 mg/dL (0.2-1.3); Total Protein 4.9 g/dL (6.3-8.2)
[2023-03-12 10:23] LABS: Anion Gap 11 mmol/L; Chloride 114 mmol/L (98-107); Potassium 3.5 mmol/L (3.5-5.1); Sodium 138 mmol/L (137-145)
[2023-03-12 11:33] LABS: HCT 35.9 % (34.0-46.0); HGB 11.6 gm/dL (11.4-16.0); MCH 32.1 pg (25.0-35.0); MCHC 32.5 g/dL (31.0-37.0); MCV 98.9 fL (80.0-100.0); Mean Platelet Volume 8.3; Platelet Count 195 k/uL (150-450); RBC 3.62 m/uL (3.80-5.40); WBC 10.7 k/uL (3.8-10.6)
[2023-03-12 12:28] LABS: Neutrophils % (M) 71 %; Nucleated Red Blood Cells 0 /100 WBC (0-0)
[2023-03-12 12:32] LABS: Band Neutrophils % 7 %; Eosinophils # (M) 0.11 k/uL (0-0.7); Lymphocytes # (M) 0.64 k/uL (1.0-4.8); Metamyelocytes # (M) 0.32 k/uL (0); Metamyelocytes % 3 %; Monocytes # (M) 1.07 k/uL (0-1.0); Myelocytes # (M) 0.32 k/uL (0); Myelocytes % 3 %; Total Cells Counted 200
[2023-03-12 12:35] LABS: RBC Morphology Normal
--- NOTE | 2023-03-12 12:44 | P.PN ---
Subjective Progress Note Date: 03/12/23 Principal diagnosis: Perforated bowel and peritonitis Patient is a 87-year-old female with a past medical history difficult for CVA/TIA, hypertension and heart failure along with anxiety presenting to the hospital with abdominal pain apparently the patient recently did have a colonoscopy before her abdominal pain started patient was evaluated at the outside facility with the patient was noticed to have a perforated colon, patient was taken to the OR and status post right hemicolectomy and abdominal cultures.Patient did well due to A-fib with RVR for the patient was transferred to cardiology unit. On today's evaluation that is 03/12/2023, patient remains to be afebrile, the patient is breathing comfortably on room air, patient is resting and sleeping comfortably per the family member the bedside, patient did not have any bowel movement no nausea no vomiting has been reported. Patient white count is 10.7 creatinine is down to 1.07 abdominal culture positive for Klebsiella and Morganella which is slightly resistant but sensitive to Zosyn Objective - Vital Signs Vital signs: Vital Signs Temp 98 F 03/12/23 11:26 Pulse 77 03/12/23 11:26 Resp 18 03/12/23 11:28 BP 134/64 03/12/23 11:26 Pulse Ox 94 L 03/12/23 11:26 FiO2 Intake & Output 03/11/23 03/12/23 03/12/23 18:59 06:59 18:59 Intake Total 360 Output Total 500 125 0 Balance -140 -125 0 Intake: Oral 360 Output: Drainage 0 0 0 Lower Abdomen 0 0 0 Urine 200 125 Other 300 Other: Voiding Method Indwelling Catheter Indwelling Catheter Indwelling Catheter # Bowel Movements 1 2 - Exam GENERAL DESCRIPTION: An alert female up in the chair in no distress RESPIRATORY SYSTEM: Unlabored breathing , decreased breath sounds at bases HEART: S1 S2 regular rate and rhythm , ABDOMEN: Soft , no tenderness EXTREMITIES: No edema feet - Labs CBC & Chem 7: 03/12/23 10:53 03/12/23 09:11 Labs: Abnormal Lab Results - Last 24 Hours (Table) 03/11/23 03/11/23 03/12/23 Range/Units 13:45 13:45 09:11 WBC 11.4 H (3.8-10.6) k/uL RBC (3.80-5.40) m/uL Neutrophils # (Manual) 9.40 H (1.3-7.7) k/uL Lymphocytes # (Manual) 0.57 L (1.0-4.8) k/uL Monocytes # (Manual) (0-1.0) k/uL Metamyelocytes # (Man) 0.23 H (0) k/uL Myelocytes # (Manual) 0.23 H (0) k/uL Sodium 136 L (137-145) mmol/L Chloride 111 H 114 H (98-107) mmol/L Carbon Dioxide 14 L 13 L (22-30) mmol/L BUN 38 H 45 H (7-17) mg/dL Creatinine 2.28 H 2.31 H (0.52-1.04) mg/dL Glucose 161 H 128 H (74-99) mg/dL Calcium 7.7 L 7.8 L (8.4-10.2) mg/dL Total Protein 4.9 L 4.9 L (6.3-8.2) g/dL Albumin 2.3 L 2.3 L (3.5-5.0) g/dL 03/12/23 Range/Units 10:53 WBC 10.7 H (3.8-10.6) k/uL RBC 3.62 L (3.80-5.40) m/uL Neutrophils # (Manual) 8.30 H (1.3-7.7) k/uL Lymphocytes # (Manual) 0.64 L (1.0-4.8) k/uL Monocytes # (Manual) 1.07 H (0-1.0) k/uL Metamyelocytes # (Man) 0.32 H (0) k/uL Myelocytes # (Manual) 0.32 H (0) k/uL Sodium (137-145) mmol/L Chloride (98-107) mmol/L Carbon Dioxide (22-30) mmol/L BUN (7-17) mg/dL Creatinine (0.52-1.04) mg/dL Glucose (74-99) mg/dL Calcium (8.4-10.2) mg/dL Total Protein (6.3-8.2) g/dL Albumin (3.5-5.0) g/dL Microbiology - Last 24 Hours (Table) 03/08/23 07:20 Anaerobic Culture - Preliminary Abdomen Anaerobic Gm Negative Bacilli 03/08/23 07:20 Gram Stain - Final Abdomen Wound Culture - Final Klebsiella ornithinolytica Morganella morganii Assessment and Plan (1) Peritonitis Current Visit: Yes Status: Acute Code(s): K65.9 - PERITONITIS, UNSPECIFIED SNOMED Code(s): 02398299 (2) Bowel perforation Current Visit: Yes Status: Acute Code(s): K63.1 - PERFORATION OF INTESTINE (NONTRAUMATIC) SNOMED Code(s): 71086843 Plan: 1patient presented hospital abdominal pain has been diagnosed with perforated colon patient with a secondary peritonitis in this patient who is status post laparotomy and right hemicolectomy we will need to cover for the polymicrobial enteric michael usually associated with colon perforation, culture has been obtained, currently growing Klebsiella drug-resistant Morganella and anaerobes. 2patient is fully clinical improvement we will continue the patient on Zosyn we will monitor clinical course closely , family the bedside question concern were answered in layman term Dictation was produced using [employer] dictation software. please excuse any grammatical, word or spelling errors. Time with Patient: Less than 30
--- NOTE | 2023-03-12 12:59 | P.PN ---
Subjective Progress Note Date: 03/12/23 CHIEF COMPLAINT: Colon perforation after outpatient colonoscopy HISTORY OF PRESENT ILLNESS: Patient is status post exploratory laparotomy with right colectomy on 03/08/2023. Patient resting in bed comfortably. She did have a large liquidy bowel movement. She denies any abdominal pain. Denies any nausea or vomiting. Afebrile. SURESH drain with serosanguineous output. WBC 10.7 hgb 11.6 creatinine 2.31 PHYSICAL EXAM: VITAL SIGNS: Reviewed. GENERAL: Well-developed in no acute distress. ABDOMEN: Soft. Nondistended. Nontender. Incisional dressing clean dry and intact. NEUROLOGIC: Sleepy but able to answer questions. Little confused ASSESSMENT: 1. Colon perforation status post exploratory laparotomy with right colectomy PLAN: -Medicine has consulted nephrology for acute kidney injury -Continue full liquid diet -Continue pain management -Continue antibiotics per infectious disease -Encourage patient to ambulate -Encourage patient to use incentive spirometer -DVT prophylaxis Pepe Physician Designer Writer note has been reviewed by physician. Signing provider agrees with the documented findings, assessment, and plan of care. Objective - Vital Signs Vital signs: Vital Signs Temp 98 F 03/12/23 11:26 Pulse 77 03/12/23 11:26 Resp 18 03/12/23 11:28 BP 134/64 03/12/23 11:26 Pulse Ox 94 L 03/12/23 11:26 FiO2 Intake & Output 03/11/23 03/12/23 03/12/23 18:59 06:59 18:59 Intake Total 360 Output Total 500 125 0 Balance -140 -125 0 Intake: Oral 360 Output: Drainage 0 0 0 Lower Abdomen 0 0 0 Urine 200 125 Other 300 Other: Voiding Method Indwelling Catheter Indwelling Catheter Indwelling Catheter # Bowel Movements 1 2 - Labs CBC & Chem 7: 03/12/23 10:53 03/12/23 09:11 Labs: Abnormal Lab Results - Last 24 Hours (Table) 03/11/23 03/11/23 03/12/23 Range/Units 13:45 13:45 09:11 WBC 11.4 H (3.8-10.6) k/uL RBC (3.80-5.40) m/uL Neutrophils # (Manual) 9.40 H (1.3-7.7) k/uL Lymphocytes # (Manual) 0.57 L (1.0-4.8) k/uL Monocytes # (Manual) (0-1.0) k/uL Metamyelocytes # (Man) 0.23 H (0) k/uL Myelocytes # (Manual) 0.23 H (0) k/uL Sodium 136 L (137-145) mmol/L Chloride 111 H 114 H (98-107) mmol/L Carbon Dioxide 14 L 13 L (22-30) mmol/L BUN 38 H 45 H (7-17) mg/dL Creatinine 2.28 H 2.31 H (0.52-1.04) mg/dL Glucose 161 H 128 H (74-99) mg/dL Calcium 7.7 L 7.8 L (8.4-10.2) mg/dL Total Protein 4.9 L 4.9 L (6.3-8.2) g/dL Albumin 2.3 L 2.3 L (3.5-5.0) g/dL 03/12/23 Range/Units 10:53 WBC 10.7 H (3.8-10.6) k/uL RBC 3.62 L (3.80-5.40) m/uL Neutrophils # (Manual) 8.30 H (1.3-7.7) k/uL Lymphocytes # (Manual) 0.64 L (1.0-4.8) k/uL Monocytes # (Manual) 1.07 H (0-1.0) k/uL Metamyelocytes # (Man) 0.32 H (0) k/uL Myelocytes # (Manual) 0.32 H (0) k/uL Sodium (137-145) mmol/L Chloride (98-107) mmol/L Carbon Dioxide (22-30) mmol/L BUN (7-17) mg/dL Creatinine (0.52-1.04) mg/dL Glucose (74-99) mg/dL Calcium (8.4-10.2) mg/dL Total Protein (6.3-8.2) g/dL Albumin (3.5-5.0) g/dL Microbiology - Last 24 Hours (Table) 03/08/23 07:20 Anaerobic Culture - Preliminary Abdomen Anaerobic Gm Negative Bacilli 03/08/23 07:20 Gram Stain - Final Abdomen Wound Culture - Final Klebsiella ornithinolytica Morganella morganii
--- NOTE | 2023-03-12 13:03 | P.PN ---
Subjective HISTORY OF PRESENT ILLNESS: The patient is an 87-year-old female patient with a past medical history significant for paroxysmal atrial fibrillation maintaining on oral anticoagulation with a course as well as hypertension and dyslipidemia and history of TIA. We requested to see the patient for further evaluation of atria l fibrillation with rapid ventricular response. The patient presented to the hospital 3 days ago complaining of abdominal discomfort. She underwent exploratory laparotomy with colectomy. She was initially on the surgical floor and she went into atrial fibrillation with rapid ventricular response and she was transferred to [facility]. She was started on Cardizem IV and converted to normal sinus mechanism. She reports no cardiovascular symptoms. She has no palpitation or heart racing and no dizziness or lightheadedness and no presyncope or syncope and no symptoms of chest pain or chest discomfort or shortness of breath at this point. She has been maintaining normal sinus mechanism since she is converted and she continues to be on Cardizem IV which I'm going to stop and start her on oral AV [place] agents was Toprol-XL. She is already on oral anticoagulation. She is known to our service from before and she was seen in 2016 where she underwent an echo at that point and that revealed normal LV systolic function with no significant valvular abnormalities. The examination is remarkable for regular rhythm with a systolic murmur at the right and left upper sternal border with a clear breathing sounds bilaterally and no lower extremity edema noted 03/12/2023 Patient examined this morning at the bedside. Patient denies chest pain or pressure. She denies shortness of breath. Telemetry reveals sinus mechanism in the 70s. Patient is tolerating liquid diet. Vital signs are stable. PHYSICAL EXAM: VITAL SIGNS: Reviewed. GENERAL: Well-developed in no acute distress. NECK: Supple. No JVD or thyromegaly LUNGS: Respirations even and unlabored. Lungs essentially clear to auscultation bilaterally. HEART: Regular rate and rhythm. S1 and S2 heard. EXTREMITIES: Normal range of motion. No clubbing or cyanosis. Peripheral pulses intact. No lower extremity edema ASSESSMENT: Status post exploratory laparotomy with colectomy Paroxysmal atrial fibrillation with RVR History of TIA Hypertension Dyslipidemia PLAN: Continue current cardiac medications Continue oral anticoagulation with Eliquis Continue telemetry monitoring Continue postoperative management per general surgery Further recommendations pending patient course Nurse practitioner note has been reviewed by physician. Signing provider agrees with the documented findings, assessment, and plan of care. Objective - Vital Signs Vital signs: Vital Signs Temp 98 F 03/12/23 11:26 Pulse 77 03/12/23 11:26 Resp 18 03/12/23 11:28 BP 134/64 03/12/23 11:26 Pulse Ox 94 L 03/12/23 11:26 FiO2 Intake & Output 03/11/23 03/12/23 03/12/23 18:59 06:59 18:59 Intake Total 360 Output Total 500 125 0 Balance -140 -125 0 Intake: Oral 360 Output: Drainage 0 0 0 Lower Abdomen 0 0 0 Urine 200 125 Other 300 Other: Voiding Method Indwelling Catheter Indwelling Catheter Indwelling Catheter # Bowel Movements 1 2 - Labs CBC & Chem 7: 03/12/23 10:53 03/12/23 09:11 Labs: Abnormal Lab Results - Last 24 Hours (Table) 03/11/23 03/11/23 03/12/23 Range/Units 13:45 13:45 09:11 WBC 11.4 H (3.8-10.6) k/uL RBC (3.80-5.40) m/uL Neutrophils # (Manual) 9.40 H (1.3-7.7) k/uL Lymphocytes # (Manual) 0.57 L (1.0-4.8) k/uL Monocytes # (Manual) (0-1.0) k/uL Metamyelocytes # (Man) 0.23 H (0) k/uL Myelocytes # (Manual) 0.23 H (0) k/uL Sodium 136 L (137-145) mmol/L Chloride 111 H 114 H (98-107) mmol/L Carbon Dioxide 14 L 13 L (22-30) mmol/L BUN 38 H 45 H (7-17) mg/dL Creatinine 2.28 H 2.31 H (0.52-1.04) mg/dL Glucose 161 H 128 H (74-99) mg/dL Calcium 7.7 L 7.8 L (8.4-10.2) mg/dL Total Protein 4.9 L 4.9 L (6.3-8.2) g/dL Albumin 2.3 L 2.3 L (3.5-5.0) g/dL 03/12/23 Range/Units 10:53 WBC 10.7 H (3.8-10.6) k/uL RBC 3.62 L (3.80-5.40) m/uL Neutrophils # (Manual) 8.30 H (1.3-7.7) k/uL Lymphocytes # (Manual) 0.64 L (1.0-4.8) k/uL Monocytes # (Manual) 1.07 H (0-1.0) k/uL Metamyelocytes # (Man) 0.32 H (0) k/uL Myelocytes # (Manual) 0.32 H (0) k/uL Sodium (137-145) mmol/L Chloride (98-107) mmol/L Carbon Dioxide (22-30) mmol/L BUN (7-17) mg/dL Creatinine (0.52-1.04) mg/dL Glucose (74-99) mg/dL Calcium (8.4-10.2) mg/dL Total Protein (6.3-8.2) g/dL Albumin (3.5-5.0) g/dL Microbiology - Last 24 Hours (Table) 03/08/23 07:20 Anaerobic Culture - Preliminary Abdomen Anaerobic Gm Negative Bacilli 03/08/23 07:20 Gram Stain - Final Abdomen Wound Culture - Final Klebsiella ornithinolytica Morganella morganii
[2023-03-12] MEDS ORDERED: POTASSIUM CHLORIDE ER 20 MEQ TAB.ER PO STA (13:40)
--- NOTE | 2023-03-12 13:40 | P.NPCON ---
History of Present Illness - Reason for Consult acute renal failure, chronic renal failure - History of Present Illness Reason for consultation: Acute kidney injury on chronic kidney disease History of present illness: Patient is a 87-year-old female seen in consultation for acute kidney injury on chronic kidney disease. Patient has chronic kidney disease stage III with baseline creatinine in the range of 1-1.2 back in 2016 in 2017. Creatinine this admission was 1.35 visit up to 2.3 today. Patient is currently resting in bed. Son is present at bedside. Patient had a colonoscopy about a week ago with subsequently developed abdominal discomfort. She was noted to have a perforation and underwent exploratory laparotomy with right colectomy on 03/08/2023. She is currently on full liquid diet. Denies use of NSAIDs. No DM. Denies CAD. Oral intake poor. Not on IV fluids at this time. No edema. No chest pain or shortness or breath. Bp stable. Vital signs are stable. General: No acute distress. HEENT: Head exam is unremarkable. LUNGS: No audible rhonchi or wheezes. HEART: Rate and Rhythm are regular. ABDOMEN: Nontender. SURESH drain noted. EXTREMITITES: No edema. Past Medical History Past Medical History: Atrial Fibrillation, Heart Failure, CVA/TIA, Hypertension Additional Past Medical History / Comment(s): anxiety History of Any Multi-Drug Resistant Organisms: None Reported Past Surgical History: Back Surgery, Tubal Ligation Additional Past Surgical History / Comment(s): exploatory laprotomy with right colectomy 03/08/[address] quinn due to perforated bowel after a colonoscopy at a different facility on 03/05/23. Past Anesthesia/Blood Transfusion Reactions: No Reported Reaction Past Psychological History: Anxiety Smoking Status: Never smoker Past Alcohol Use History: None Reported Past Drug Use History: None Reported - Past Family History Father Family Medical History: CVA/TIA Mother Family Medical History: Cancer Additional Family Medical History / Comment(s): Mother had bladder cancer Medications and Allergies Home Medications Medication Instructions Recorded Confirmed Type LORazepam [Lorazepam] 0.5 mg PO HS 04/02/16 03/08/23 History Pravastatin Sodium [Pravachol] 80 mg PO DAILY 04/02/16 03/08/23 History Apixaban [Eliquis] 2.5 mg PO BID tablet 04/06/16 03/08/23 Rx Calcium/Vitamin D(Unknown Dose) 1 tab PO DAILY 03/08/23 03/08/23 History NIFEdipine XL [Procardia Xl] 30 mg PO DAILY 03/08/23 03/08/23 History Primidone 125mg 125 mg PO HS 03/08/23 03/08/23 History Propafenone [Rythmol] 150 mg PO BID 03/08/23 03/08/23 History Propranolol LA [Inderal LA] 60 mg PO BID 03/08/23 03/08/23 History Topiramate [Topamax] 50 mg PO DAILY 03/08/23 03/08/23 History Vitamin C(Unknown Dose) 1 tab PO DAILY 03/08/23 03/08/23 History amLODIPine [Norvasc] 5 mg PO DAILY 03/08/23 03/08/23 History busPIRone HCl [Buspar] 5 mg PO BID 03/08/23 03/08/23 History Allergies Allergy/AdvReac Type Severity Reaction Status Date / Time No Known Allergies Allergy Verified 03/08/23 10:43 Physical Exam Vitals: Vital Signs Temp Pulse Pulse Resp BP Pulse Ox 03/12/23 11:28 18 03/12/23 11:26 98 F 77 18 134/64 94 L 03/12/23 08:00 97.8 F 91 18 131/60 96 03/12/23 03:50 64 16 106/67 96 03/12/23 01:20 85 16 03/12/23 00:00 85 16 113/61 95 03/11/23 20:00 97.2 F L 85 18 123/58 96 03/11/23 17:24 74 18 118/73 97 03/11/23 15:24 61 18 Intake and Output 03/11/23 03/12/23 03/12/23 22:59 06:59 14:59 Intake Total 180 Output Total 300 125 0 Balance -120 -125 0 Intake: Oral 180 Output: Drainage 0 0 Lower Abdomen 0 0 Urine 125 Other 300 Other: Voiding Method Indwelling Catheter Indwelling Catheter Indwelling Catheter # Bowel Movements 1 2 Results - Lab Results Most recent lab results Calcium 7.8 mg/dL (8.4-10.2) L 03/12/23 09:11 Magnesium 1.8 mg/dL (1.6-2.3) 03/08/23 02:04 03/12/23 10:53 03/12/23 09:11 Assessment and Plan Plan: Assessment: 1. EMRE secondary to ATN due to sepsis and hemodynamic instability. Creatinine 1.35 on admission - 2.31 today. 2. Right colon perforation s/p exp lap with right colectomy 03/08/23. 3. Chronic kidney disease stage IIIA with baseline creatinine 1-1.2 in 2016 in 2017. Suspect nephrosclerosis. 4. Metabolic acidosis secondary to acute kidney injury. 5. Severe sepsis secondary to colon perforation on antibiotics. Cultures positive for Klebsiella and Morganella. 6. A. fib with RVR maintained on metoprolol and liquids. Cardiology following. Plan: Start bicarb drip at 75 mL an hour. Check UA. Check renal ultrasound. Diet per surgery. Avoid nephrotoxins. Continue to monitor renal function and urine output. Thank you for the consultation. I will continue to follow the patient with you during her hospital stay.
--- NOTE | 2023-03-12 14:23 | US ---
EXAMINATION TYPE: US kidneys/renal and bladder DATE OF EXAM: 03/12/2023 COMPARISON: NONE CLINICAL INDICATION: Female, 87 years old with history of renal failure; EXAM MEASUREMENTS: Right Kidney: 7.9 x 4.1 x 4.2 cm Left Kidney: 7.0 x 3.6 x 4.1 cm Right Kidney: Cyst-like area noted superior pole measuring 1.2 x 1.1 x 1.0 cm Left Kidney: Limited evaluation due to patient immobility and excessive bowel present Bladder: Unable to image due to recent incision. Patient did have strange cath. There is a simple appearing cyst at superior pole right kidney. IMPRESSION: 1. Simple appearing cyst superior pole right kidney.
--- NOTE | 2023-03-12 14:25 | P.PN ---
Subjective Progress Note Date: 03/12/23 Patient is evaluated today resting in bed no acute complaints. Patient is postoperative day #4 exploratory laparotomy with right hemicolectomy for colon perforation. Reports abdominal pain is well-controlled per patient currently receiving IV Dilaudid and tramadol. Patient remains on IV Zosyn, white count today down to 10.7. Patient has had a couple loose bowel movements noted that she is on full liquid diet. She is passing gas. Midline incision is clean and dry. SURESH drain in place with minimal output serosanguineous in color. Creatinine has trended upwards 2.31 today, renal ultrasound requested. Nephrology will also be consulted. Patient is drowsy during the day family feels she may be slightly confused this is likely medication effect. Heart rate remains controlled. Review of Systems Constitutional: Denied any fatigue denied any fever. Cardio vascular: denied any chest pain, palpitations Gastrointestinal: denied any nausea, vomiting, diarrhea Pulmonary: Denied any shortness of breath cough Neurologic denied any new focal deficits All inpatient medications were reviewed and appropriate changes in these medications as dictated in the interval history and assessment and plan. PHYSICAL EXAMINATION: GENERAL: The patient is alert and oriented x2, not in any acute distress. Well developed, well nourished. HEENT: Pupils are round and equally reacting to light. EOMI. No scleral icterus. No conjunctival pallor. Normocephalic, atraumatic. No pharyngeal erythema. No thyromegaly. CARDIOVASCULAR: S1 and S2 present. No murmurs, rubs, or gallops. PULMONARY: Chest is clear to auscultation, no wheezing or crackles. ABDOMEN: Soft, nontender, nondistended, normoactive bowel sounds. No palpable organomegaly. Post surgical abdomen with midline incision and SURESH drain in place RLQ. MUSCULOSKELETAL: No joint swelling or deformity. EXTREMITIES: No cyanosis, clubbing, or pedal edema. NEUROLOGICAL: Gross neurological examination did not reveal any focal deficits. Diffuse weakness. SKIN: No rashes. Assessment Perforated Colon status post exploratory laparotomy with right colectomy with end to end anastomosis Sepsis secondary to above Altered mental status due to metabolic encephalopathy from kidney injury and sepsis Acute kidney injury due to ATN and hypotension Chronic kidney disease stage IIIA Paroxysmal atrial fibrillation with rapid ventricular rate heart rate is now improved patient is anticoagulated History TIA Hypertension GI Prophylaxis DVT prophylaxis Full code Plan Continue with antibiotics Nephrology consultation, renal ultrasound Recommend to discontinue Ativan at bedtime and avoid the use of narcotics if possible PT OT following the patient Repeat labs in the a.m. Can downgrade to medical floor. The impression and plan of care has been dictated by Tomasa Zepeda, Nurse Practitioner as directed. Dr. Sarah MD I have performed a history and physical examination and medical decision making of this patient, discussed the same with the dictator, and agree with the dictators assessment and plan as written, documented as a scribe. Based on total visit time, I have performed more than 50% of this visit. Objective - Vital Signs Vital signs: Vital Signs Temp 97.2 F L 03/11/23 20:00 Pulse 64 03/12/23 03:50 Resp 16 03/12/23 03:50 BP 106/67 03/12/23 03:50 Pulse Ox 96 03/12/23 03:50 FiO2 Intake & Output 03/11/23 03/12/23 03/12/23 18:59 06:59 18:59 Intake Total 360 Output Total 500 125 Balance -140 -125 Intake: Oral 360 Output: Drainage 0 0 Lower Abdomen 0 0 Urine 200 125 Other 300 Other: Voiding Method Indwelling Catheter Indwelling Catheter # Bowel Movements 1 - Labs CBC & Chem 7: 03/12/23 10:53 03/12/23 09:11 Labs: Abnormal Lab Results - Last 24 Hours (Table) 03/11/23 03/11/23 Range/Units 13:45 13:45 WBC 11.4 H (3.8-10.6) k/uL Neutrophils # (Manual) 9.40 H (1.3-7.7) k/uL Lymphocytes # (Manual) 0.57 L (1.0-4.8) k/uL Metamyelocytes # (Man) 0.23 H (0) k/uL Myelocytes # (Manual) 0.23 H (0) k/uL Sodium 136 L (137-145) mmol/L Chloride 111 H (98-107) mmol/L Carbon Dioxide 14 L (22-30) mmol/L BUN 38 H (7-17) mg/dL Creatinine 2.28 H (0.52-1.04) mg/dL Glucose 161 H (74-99) mg/dL Calcium 7.7 L (8.4-10.2) mg/dL Total Protein 4.9 L (6.3-8.2) g/dL Albumin 2.3 L (3.5-5.0) g/dL Microbiology - Last 24 Hours (Table) 03/08/23 07:20 Anaerobic Culture - Preliminary Abdomen Anaerobic Gm Negative Bacilli 03/08/23 07:20 Gram Stain - Final Abdomen Wound Culture - Final Klebsiella ornithinolytica Morganella morganii Assessment and Plan Time with Patient: Less than 30
[2023-03-12] MEDS: DEXTROSE 5% IN WATER 1,000 ML with SODIUM BICARB (1 MEQ/ML) 150 ML IV SCH (16:32)
[2023-03-12 16:36] LABS: Appearance,Urine Turbid (Clear); Bilirubin,Urine Negative (Negative); Blood,Urine Small (Negative); Glucose,Urine (UA) Negative (Negative); Ketones,Urine Negative (Negative); Leukocyte Esterase,Urine Negative (Negative); Nitrite,Urine Negative (Negative); PH, Urine 5.5 (5.0-8.0); Protein,Urine 1+ (Negative); RBC,Urine 4 /hpf (0-5); Specific Gravity,Urine 1.021 (1.001-1.035); Uric Acid Crystals,Urine Many /hpf; Urobilinogen,Urine <2.0 mg/dL (<2.0)
[2023-03-12 16:38] LABS: Color,Urine Yellow
--- NOTE | 2023-03-12 17:11 | CDI ---
Documentation Clarification Form Date: 03/12/2023 04:51:05 PM From: Estrellita South RN CCDS Phone: [phone] Admit Date: 03/08/2023 02:03:00 AM Patient Name: Jemima Negrete Visit Number: [id number] Discharge Date: ATTENTION: The Clinical Documentation Specialists (CDI) and [facility] Coding Staff appreciate your assistance in clarifying documentation. Please respond to the clarification below the line at the bottom and electronically sign. The CDI & [facility] Coding staff will review the response and follow-up if needed. Please note: Queries are made part of the Legal Health Record. If you have any questions, please contact the author of this message via ITS. Dr. Sulaiman Reyes The patient has Sepsis on 03/12 in medicine note. Based on this information and the findings below, is there an additional diagnosis that is clinically appropriate for this patient? History/Risk Factors: 87-year-old female presents to the ED with severe abdominal pain, nausea and vomiting with a suspected bowel perforation after a colonoscopy. Medical History: Heart failure, HTN and CVA/TIA. 03/08, Medicine consult. Clinical Indicators: Vitals signs: B/P 113/48; HR 84; Temp 101.3 F Oral; RR 16; SpO2 93% room air WBC, 03/08: 6.6 Abdomen Wound culture Gram stain final, 03/08: Klebsiella ornithinolytica, Morganella morganii Abdomen Anaerobic Culture Preliminary, 03/08: Anaerobic Gram negative Bacilli ID Consult, 03/08: 1patient presented hospital abdominal pain has been diagnosed with perforated colon patient with a secondary peritonitis in this patient who is status post laparotomy and right hemicolectomy. Nephrology consult, 03/12: Severe sepsis secondary to colon perforation on antibiotics. Treatment: ID Consult: See above Antibiotics: 03/08 Zosyn IVPB Q8HR changed 03/09 to Q12HR IV Fluids: 03/08 03/11 0.9NS IV 75cc/hr Is there an additional diagnosis that is clinically appropriate for this patient? [ XX] Sepsis, present on admission [ ] Sepsis, developed during stay, not present on admission [ ] Other, please specify [ ] Unable to determine SIRS Criteria: 2 or more of the following may indicate SIRS Temperature < 96.8F (36C) or > 101.0F (38.3C) Heart Rate > 90 bpm Respiratory Rate > 20 breaths/min or PaCO2 < 32 mmHg White Blood Cell Count > 12,000 or < 4,000 cells/mm3 or > 10% bands (Template Last Reviewed: July 2022) MTDD
--- NOTE | 2023-03-12 18:38 | XR ---
EXAMINATION TYPE: XR chest 1V portable DATE OF EXAM: 03/12/2023 6:22 PM COMPARISON: Chest radiographs from 03/01/2017 TECHNIQUE: XR chest 1V portable Frontal view of the chest. CLINICAL INDICATION:Female, 87 years old with history of hypoxia; FINDINGS: Lungs/Pleura: There is flattening of the diaphragm with increased lucency of the lungs. No evidence o f pneumothorax, pleural effusion or focal consolidation. Pulmonary vascularity: Unremarkable. Heart/mediastinum: Cardiomediastinal silhouette is unremarkable. Musculoskeletal: No acute osseous pathology. IMPRESSION: 1. No acute cardiopulmonary disease process. 2. COPD changes.
[2023-03-13] MEDS: DEXTROSE 5% IN WATER 1,000 ML with SODIUM BICARB (1 MEQ/ML) 150 ML IV SCH ×2 (06:05→20:33)
[2023-03-13 08:14] LABS: Glucose 133 mg/dL (74-99)
[2023-03-13 08:15] LABS: African American GFR (CKD) 20 (>60 ml/min/1.73 sqM); Anion Gap 8 mmol/L; Blood Urea Nitrogen 43 mg/dL (7-17); Calcium 7.4 mg/dL (8.4-10.2); Carbon Dioxide 18 mmol/L (22-30); Chloride 113 mmol/L (98-107); Magnesium 2.4 mg/dL (1.6-2.3); Non-African American GFR(CKD) 17 (>60 ml/min/1.73 sqM); Phosphorus 3.1 mg/dL (2.5-4.5); Potassium 2.8 mmol/L (3.5-5.1); Sodium 139 mmol/L (137-145)
[2023-03-13] MEDS: PANTOPRAZOLE 40 MG/10 ML VIAL IV SCH (08:25)
[2023-03-13] MEDS: METOPROLOL SUCCINATE (ER) 25 MG TAB.ER.24H PO SCH (08:25)
[2023-03-13] MEDS: TOPIRAMATE 25 MG TAB PO SCH (08:25)
[2023-03-13] MEDS: APIXABAN 2.5 MG TABLET PO SCH ×2 (08:25→20:33)
[2023-03-13] MEDS: busPIRone HCl 5 MG TAB PO SCH ×2 (08:25→20:33)
[2023-03-13] MEDS: PIPERACILLIN-TAZOBACTAM 3.375 GM in SODIUM CHLORIDE 0.9% 100 ML IVPB SCH ×2 (08:25→20:32)
[2023-03-13] MEDS: PRAVASTATIN SODIUM 80 MG TAB PO SCH (09:35)
[2023-03-13] MEDS: ACETAMINOPHEN TAB 325 MG TAB PO PRN (09:35)
[2023-03-13] MEDS: PROPAFENONE 150 MG TAB PO SCH ×2 (09:36→20:33)
[2023-03-13] MEDS: POTASSIUM CHLORIDE ER 10 MEQ TAB.ER.PRT PO SCH ×2 (09:44→12:07)
[2023-03-13] MEDS ORDERED: POTASSIUM CHLORIDE ER 20 MEQ TAB.ER PO STA (12:13)
--- NOTE | 2023-03-13 12:16 | P.PN ---
Subjective Patient is seen in follow-up for acute kidney injury on chronic kidney disease. renal function fairly stable. On bicarb drip. Has been voiding. Oral intake poor. Vital signs are stable. General: No acute distress. HEENT: Head exam is unremarkable. LUNGS: No audible rhonchi or wheezes. HEART: Rate and Rhythm are regular. ABDOMEN: Nontender. SURESH drain noted. EXTREMITITES: Trace edema. Objective - Vital Signs Vital signs: Vital Signs Temp 97.5 F L 03/13/23 08:00 Pulse 75 03/13/23 12:00 Resp 16 03/13/23 12:00 BP 115/79 03/13/23 12:00 Pulse Ox 100 03/13/23 12:00 FiO2 Intake & Output 03/12/23 03/13/23 03/13/23 18:59 06:59 18:59 Intake Total 250 Output Total 0 300 Balance 0 -300 250 Intake: IV 10 Invasive Line 3 10 Oral 240 Output: Drainage 0 Lower Abdomen 0 Urine 300 Other: Voiding Method Indwelling Catheter Indwelling Catheter Bedside Commode # Voids 1 1 # Bowel Movements 1 1 1 - Labs CBC & Chem 7: 03/12/23 10:53 03/13/23 07:35 Labs: Abnormal Lab Results - Last 24 Hours (Table) 03/12/23 03/12/23 03/13/23 Range/Units 10:53 16:00 07:35 Neutrophils # (Manual) 8.30 H (1.3-7.7) k/uL Lymphocytes # (Manual) 0.64 L (1.0-4.8) k/uL Monocytes # (Manual) 1.07 H (0-1.0) k/uL Metamyelocytes # (Man) 0.32 H (0) k/uL Myelocytes # (Manual) 0.32 H (0) k/uL Potassium 2.8 L (3.5-5.1) mmol/L Chloride 113 H (98-107) mmol/L Carbon Dioxide 18 L (22-30) mmol/L BUN 43 H (7-17) mg/dL Creatinine 2.45 H (0.52-1.04) mg/dL Glucose 133 H (74-99) mg/dL Calcium 7.4 L (8.4-10.2) mg/dL Magnesium 2.4 H (1.6-2.3) mg/dL Urine Appearance Turbid H (Clear) Urine Protein 1+ H (Negative) Urine Blood Small H (Negative) Uric Acid Crystals Many H (None) /hpf Assessment and Plan Plan: Assessment: 1. EMRE secondary to ATN due to sepsis and hemodynamic instability. Creatinine 1.35 on admission - 2.45 today. Kidneys noted to be atrophic with no evidence of hydronephrosis. 2. Right colon perforation s/p exp lap with right colectomy 03/08/23. 3. Chronic kidney disease stage IIIA with baseline creatinine 1-1.2 in 2016 in 2017. Suspect nephrosclerosis. 4. Metabolic acidosis secondary to acute kidney injury. Improving with bic arbonate drip. 5. Severe sepsis secondary to colon perforation on antibiotics. Cultures positive for Klebsiella and Morganella. 6. A. fib with RVR maintained on metoprolol, propafenone and eliquis. Cardiology following. 7. Hypokalemia from poor intake and intracellular shifting from IV bicarb. Plan: Maintain bicarb drip at 75 mL an hour. Replace potassium. Check uric acid level as UA shows uric acid crystals. Avoid nephrotoxins. Continue to monitor renal function and urine output.
--- NOTE | 2023-03-13 12:59 | P.PN ---
Subjective Progress Note Date: 03/13/23 CHIEF COMPLAINT: Colon perforation after outpatient colonoscopy HISTORY OF PRESENT ILLNESS: Patient is status post exploratory laparotomy with right colectomy on 03/08/2023. Patient resting in bed comfortably. Patient's has been having bowel movements. Abdominal pain control. Denies any nausea or vomiting. Afebrile. Sodium 139 potassium 2.8 creatinine is up 2.45 magnesium 2.4 PHYSICAL EXAM: VITAL SIGNS: Reviewed. GENERAL: Well-developed in no acute distress. ABDOMEN: Soft. Nondistended. Minimal tenderness with palpation incision site. Incisional dressing clean dry and intact. NEUROLOGIC: Sleepy but able to answer questions. Little confused ASSESSMENT: 1. Colon perforation status post exploratory laparotomy with right colectomy 2. Hypokalemia PLAN: -Advance diet to low fiber -Acute kidney injury managed by nephrology -Patient receiving potassium supplement -Continue antibiotics per infectious disease -Encourage patient to ambulate. Consult physical therapy to ambulate patient -Encourage patient to use incentive spirometer -DVT prophylaxis Pepe Physician Coping Machine Assembler note has been reviewed by physician. Signing provider agrees with the documented findings, assessment, and plan of care. I have personally seen and examined the patient, reviewed the INVENTORY CLERK /PAs history, exam and MDM and agree with the assessment and plan as written. Based on total visit time, I have performed more than 50% of the visit. As above: Overall patient doing well. She feels weak. Patient states she has history of chronic kidney dysfunction. Continue to monitor creatinine closely. Continue physical therapy. Objective - Vital Signs Vital signs: Vital Signs Temp 97.5 F L 03/13/23 08:00 Pulse 75 03/13/23 12:00 Resp 16 03/13/23 12:00 BP 115/79 03/13/23 12:00 Pulse Ox 100 03/13/23 12:00 FiO2 Intake & Output 03/12/23 03/13/23 03/13/23 18:59 06:59 18:59 Intake Total 250 Output Total 0 300 Balance 0 -300 250 Intake: IV 10 Invasive Line 3 10 Oral 240 Output: Drainage 0 Lower Abdomen 0 Urine 300 Other: Voiding Method Indwelling Catheter Indwelling Catheter Bedside Commode # Voids 1 1 # Bowel Movements 1 1 1 - Labs CBC & Chem 7: 03/12/23 10:53 03/13/23 07:35 Labs: Abnormal Lab Results - Last 24 Hours (Table) 03/12/23 03/13/23 Range/Units 16:00 07:35 Potassium 2.8 L (3.5-5.1) mmol/L Chloride 113 H (98-107) mmol/L Carbon Dioxide 18 L (22-30) mmol/L BUN 43 H (7-17) mg/dL Creatinine 2.45 H (0.52-1.04) mg/dL Glucose 133 H (74-99) mg/dL Calcium 7.4 L (8.4-10.2) mg/dL Magnesium 2.4 H (1.6-2.3) mg/dL Urine Appearance Turbid H (Clear) Urine Protein 1+ H (Negative) Urine Blood Small H (Negative) Uric Acid Crystals Many H (None) /hpf
--- NOTE | 2023-03-13 14:48 | P.PN ---
Subjective Progress Note Date: 03/13/23 Principal diagnosis: Perforated bowel and peritonitis Patient is a 87-year-old female with a past medical history difficult for CVA/TIA, hypertension and heart failure along with anxiety presenting to the hospital with abdominal pain apparently the patient recently did have a colonoscopy before her abdominal pain started patient was evaluated at the outside facility with the patient was noticed to have a perforated colon, patient was taken to the OR and status post right hemicolectomy and abdominal cultures.Patient did well due to A-fib with RVR for the patient was transferred to cardiology unit. On today's evaluation that is 03/13/2023, patient continues to be afebrile, the patient is breathing comfortably on room air, patient denies any chest pain shortness of breath or cough abdominal pain has decreased in intensity no nausea no vomiting tolerating her diet and did have a bowel movement for the nursing staff Patient white count is 10.7 as of yesterday did have slight worsening of creatinine which is up to 2.45, abdominal culture positive for Klebsiella and Morganella which is slightly resistant but sensitive to Zosyn Objective - Vital Signs Vital signs: Vital Signs Temp 97.5 F L 03/13/23 08:00 Pulse 75 03/13/23 12:00 Resp 16 03/13/23 12:00 BP 115/79 03/13/23 12:00 Pulse Ox 100 03/13/23 12:00 FiO2 Intake & Output 03/12/23 03/13/23 03/13/23 18:59 06:59 18:59 Intake Total 250 Output Total 0 300 Balance 0 -300 250 Intake: IV 10 Invasive Line 3 10 Oral 240 Output: Drainage 0 Lower Abdomen 0 Urine 300 Other: Voiding Method Indwelling Catheter Indwelling Catheter Bedside Commode # Voids 1 1 # Bowel Movements 1 1 1 - Exam GENERAL DESCRIPTION: An alert female up in the chair in no distress RESPIRATORY SYSTEM: Unlabored breathing , decreased breath sounds at bases HEART: S1 S2 regular rate and rhythm , ABDOMEN: Soft , no tenderness EXTREMITIES: No edema feet - Labs CBC & Chem 7: 03/12/23 10:53 03/13/23 07:35 Labs: Abnormal Lab Results - Last 24 Hours (Table) 03/12/23 03/12/23 03/13/23 Range/Units 10:53 16:00 07:35 Neutrophils # (Manual) 8.30 H (1.3-7.7) k/uL Lymphocytes # (Manual) 0.64 L (1.0-4.8) k/uL Monocytes # (Manual) 1.07 H (0-1.0) k/uL Metamyelocytes # (Man) 0.32 H (0) k/uL Myelocytes # (Manual) 0.32 H (0) k/uL Potassium 2.8 L (3.5-5.1) mmol/L Chloride 113 H (98-107) mmol/L Carbon Dioxide 18 L (22-30) mmol/L BUN 43 H (7-17) mg/dL Creatinine 2.45 H (0.52-1.04) mg/dL Glucose 133 H (74-99) mg/dL Calcium 7.4 L (8.4-10.2) mg/dL Magnesium 2.4 H (1.6-2.3) mg/dL Urine Appearance Turbid H (Clear) Urine Protein 1+ H (Negative) Urine Blood Small H (Negative) Uric Acid Crystals Many H (None) /hpf Assessment and Plan (1) Peritonitis Current Visit: Yes Status: Acute Code(s): K65.9 - PERITONITIS, UNSPECIFIED SNOMED Code(s): 87913476 (2) Bowel perforation Current Visit: Yes Status: Acute Code(s): K63.1 - PERFORATION OF INTESTINE (NONTRAUMATIC) SNOMED Code(s): 90665564 Plan: 1patient presented hospital abdominal pain has been diagnosed with perforated colon patient with a secondary peritonitis in this patient who is status post laparotomy and right hemicolectomy we will need to cover for the polymicrobial enteric michael usually associated with colon perforation, culture has been obtained, currently growing Klebsiella drug-resistant Morganella and anaerobes. 2patient has shown clinical improvement we will continue the patient on Zosyn while in patient with a plan to transition to oral antibiotics on discharge Son at the bedside questions were answered Dictation was produced using [employer] dictation software. please excuse any grammatical, word or spelling errors. Time with Patient: Less than 30
--- NOTE | 2023-03-13 16:25 | P.PN ---
Subjective Progress Note Date: 03/13/23 HISTORY OF PRESENT ILLNESS: The patient is an 87-year-old female patient with a past medical history significant for paroxysmal atrial fibrillation maintaining on oral anticoagulati on with a course as well as hypertension and dyslipidemia and history of TIA. We requested to see the patient for further evaluation of atrial fibrillation with rapid ventricular response. The patient presented to the hospital 3 days ago complaining of abdominal discomfort. She underwent exploratory laparotomy with colectomy. She was initially on the surgical floor and she went into atrial fibrillation with rapid ventricular response and she was transferred to [facility]. She was started on Cardizem IV and converted to normal sinus mechanism. She reports no cardiovascular symptoms. She has no palpitation or heart racing and no dizziness or lightheadedness and no presyncope or syncope and no symptoms of chest pain or chest discomfort or shortness of breath at this point. She has been maintaining normal sinus mechanism since she is converted and she continues to be on Cardizem IV which I'm going to stop and start her on oral AV brook k[place] agents was Toprol-XL. She is already on oral anticoagulation. She is known to our service from before and she was seen in 2016 where she underwent an echo at that point and that revealed normal LV systolic function with no significant valvular abnormalities. The examination is remarkable for regular rhythm with a systolic murmur at the right and left upper sternal border with a clear breathing sounds bilaterally and no lower extremity edema noted 03/12/2023 Patient examined this morning at the bedside. Patient denies chest pain or pressure. She denies shortness of breath. Telemetry reveals sinus mechanism in the 70s. Patient is tolerating liquid diet. Vital signs are stable. 03/13/2023 Patient is seen and examined at bedside the same. Patient is tolerating soft. She was sitting up in chair. Her potassium was 2.8 today which has been replaced. Creatinine is 2.45. Blood pressure 115/74, heart rate 75 bpm. Telemetry shows normal sinus rhythm. PHYSICAL EXAM: VITAL SIGNS: Reviewed. GENERAL: Well-developed in no acute distress. NECK: Supple. No JVD or thyromegaly LUNGS: Respirations even and unlabored. Lungs essentially clear to auscultation bilaterally. HEART: Regular rate and rhythm. S1 and S2 heard. EXTREMITIES: Normal range of motion. No clubbing or cyanosis. Peripheral pulses intact. No lower extremity edema ASSESSMENT: Status post exploratory laparotomy with colectomy Paroxysmal atrial fibrillation with RVR History of TIA Hypertension Dyslipidemia PLAN: Continue current cardiac medications Continue oral anticoagulation with Eliquis Continue telemetry monitoring Continue postoperative management per general surgery Further recommendations pending patient course Objective - Vital Signs Vital signs: Vital Signs Temp 97.5 F L 03/13/23 08:00 Pulse 75 03/13/23 12:00 Resp 16 03/13/23 12:00 BP 115/79 03/13/23 12:00 Pulse Ox 100 03/13/23 12:00 FiO2 Intake & Output 03/12/23 03/13/23 03/13/23 18:59 06:59 18:59 Intake Total 490 Output Total 0 300 Balance 0 -300 490 Intake: IV 10 Invasive Line 3 10 Oral 480 Output: Drainage 0 Lower Abdomen 0 Urine 300 Other: Voiding Method Indwelling Catheter Indwelling Catheter Bedside Commode # Voids 1 1 # Bowel Movements 1 1 1 - Labs CBC & Chem 7: 03/12/23 10:53 03/13/23 07:35 Labs: Abnormal Lab Results - Last 24 Hours (Table) 03/12/23 03/13/23 Range/Units 16:00 07:35 Potassium 2.8 L (3.5-5.1) mmol/L Chloride 113 H (98-107) mmol/L Carbon Dioxide 18 L (22-30) mmol/L BUN 43 H (7-17) mg/dL Creatinine 2.45 H (0.52-1.04) mg/dL Glucose 133 H (74-99) mg/dL Calcium 7.4 L (8.4-10.2) mg/dL Magnesium 2.4 H (1.6-2.3) mg/dL Urine Appearance Turbid H (Clear) Urine Protein 1+ H (Negative) Urine Blood Small H (Negative) Uric Acid Crystals Many H (None) /hpf
--- NOTE | 2023-03-13 18:56 | P.PN ---
Subjective Progress Note Date: 03/13/23 Patient is evaluated today resting in bed no acute complaints. Patient is postoperative day #4 exploratory laparotomy with right hemicolectomy for colon perforation. Reports abdominal pain is well-controlled per patient currently receiving IV Dilaudid and tramadol. Patient remains on IV Zosyn, white count today down to 10.7. Patient has had a couple loose bowel movements noted that she is on full liquid diet. She is passing gas. Midline incision is clean and dry. SURESH drain in place with minimal output serosanguineous in color. Creatinine has trended upwards 2.31 today, renal ultrasound requested. Nephrology will also be consulted. Patient is drowsy during the day family feels she may be slightly confused this is likely medication effect. Heart rate remains controlled. 03/13/2023 Patient is evaluated today sitting up in bed eating regular diet. Postoperative day #5 right hemicolectomy. Patient is having bowel movements. Mentation has improved slightly today. Family at bedside feels she has improved as well. Creatinine remains elevated 2.45 today, and patient remains on bicarb gtt. Renal ultrasound shows no obstructive uropathy. Wound cultures showing klebsiella and morganella as well as anaerobic gram neg bacilli. Patient remains on IV zosyn. Patient is being followed closely by PT/OT remains a moderate assist to get to the edge of bed and will require rehab on discharge. Review of Systems Constitutional: Denied any fatigue denied any fever. Cardio vascular: denied any chest pain, palpitations Gastrointestinal: denied any nausea, vomiting, diarrhea Pulmonary: Denied any shortness of breath cough Neurologic denied any new focal deficits All inpatient medications were reviewed and appropriate changes in these medications as dictated in the interval history and assessment and plan. PHYSICAL EXAMINATION: GENERAL: The patient is alert and oriented x2, not in any acute distress. Well developed, well nourished. HEENT: Pupils are round and equally reacting to light. EOMI. No scleral icterus. No conjunctival pallor. Normocephalic, atraumatic. No pharyngeal erythema. No thyromegaly. CARDIOVASCULAR: S1 and S2 present. No murmurs, rubs, or gallops. PULMONARY: Chest is clear to auscultation, no wheezing or crackles. ABDOMEN: Soft, nontender, nondistended, normoactive bowel sounds. No palpable organomegaly. Post surgical abdomen with midline incision and SURESH drain in place RLQ. MUSCULOSKELETAL: No joint swelling or deformity. EXTREMITIES: No cyanosis, clubbing, or pedal edema. NEUROLOGICAL: Gross neurological examination did not reveal any focal deficits. Diffuse weakness. SKIN: No rashes. Assessment Perforated Colon status post exploratory laparotomy with right colectomy with end to end anastomosis Sepsis secondary to above Altered mental status due to metabolic encephalopathy from kidney injury and sepsis Acute kidney injury due to ATN and hypotension Chronic kidney disease stage IIIA Paroxysmal atrial fibrillation with rapid ventricular rate heart rate is now improved patient is anticoagulated History TIA Hypertension GI Prophylaxis DVT prophylaxis Full code Plan Continue with antibiotics Nephrology consultation patient continues on bicarb gtt Recommend to discontinue Ativan at bedtime and avoid the use of narcotics if possible PT OT following the patient Repeat labs in the a.m. Can downgrade to medical floor. The impression and plan of care has been dictated by Tomasa Zepeda Nurse Practitioner as directed. Dr. Sarah MD I have performed a history and physical examination and medical decision making of this patient, discussed the same with the dictator, and agree with the dictators assessment and plan as written, documented as a scribe. Based on total visit time, I have performed more than 50% of this visit. Objective - Vital Signs Vital signs: Vital Signs Temp 97.5 F L 03/13/23 08:00 Pulse 78 03/13/23 08:00 Resp 16 03/13/23 08:00 BP 146/79 03/13/23 08:00 Pulse Ox 98 03/13/23 08:00 FiO2 Intake & Output 03/12/23 03/13/23 03/13/23 18:59 06:59 18:59 Intake Total 240 Output Total 0 300 Balance 0 -300 240 Intake: Oral 240 Output: Drainage 0 Lower Abdomen 0 Urine 300 Other: Voiding Method Indwelling Catheter Indwelling Catheter # Voids 1 1 # Bowel Movements 1 1 1 - Labs CBC & Chem 7: 03/12/23 10:53 03/13/23 07:35 Labs: Abnormal Lab Results - Last 24 Hours (Table) 03/12/23 03/12/23 03/12/23 Range/Units 09:11 10:53 16:00 WBC 10.7 H (3.8-10.6) k/uL RBC 3.62 L (3.80-5.40) m/uL Neutrophils # (Manual) 8.30 H (1.3-7.7) k/uL Lymphocytes # (Manual) 0.64 L (1.0-4.8) k/uL Monocytes # (Manual) 1.07 H (0-1.0) k/uL Metamyelocytes # (Man) 0.32 H (0) k/uL Myelocytes # (Manual) 0.32 H (0) k/uL Potassium (3.5-5.1) mmol/L Chloride 114 H (98-107) mmol/L Carbon Dioxide 13 L (22-30) mmol/L BUN 45 H (7-17) mg/dL Creatinine 2.31 H (0.52-1.04) mg/dL Glucose 128 H (74-99) mg/dL Calcium 7.8 L (8.4-10.2) mg/dL Magnesium (1.6-2.3) mg/dL Total Protein 4.9 L (6.3-8.2) g/dL Albumin 2.3 L (3.5-5.0) g/dL Urine Appearance Turbid H (Clear) Urine Protein 1+ H (Negative) Urine Blood Small H (Negative) Uric Acid Crystals Many H (None) /hpf 03/13/23 Range/Units 07:35 WBC (3.8-10.6) k/uL RBC (3.80-5.40) m/uL Neutrophils # (Manual) (1.3-7.7) k/uL Lymphocytes # (Manual) (1.0-4.8) k/uL Monocytes # (Manual) (0-1.0) k/uL Metamyelocytes # (Man) (0) k/uL Myelocytes # (Manual) (0) k/uL Potassium 2.8 L (3.5-5.1) mmol/L Chloride 113 H (98-107) mmol/L Carbon Dioxide 18 L (22-30) mmol/L BUN 43 H (7-17) mg/dL Creatinine 2.45 H (0.52-1.04) mg/dL Glucose 133 H (74-99) mg/dL Calcium 7.4 L (8.4-10.2) mg/dL Magnesium 2.4 H (1.6-2.3) mg/dL Total Protein (6.3-8.2) g/dL Albumin (3.5-5.0) g/dL Urine Appearance (Clear) Urine Protein (Negative) Urine Blood (Negative) Uric Acid Crystals (None) /hpf Assessment and Plan Time with Patient: Less than 30
[2023-03-14] MEDS: PANTOPRAZOLE 40 MG/10 ML VIAL IV SCH (09:47)
[2023-03-14] MEDS: ACETAMINOPHEN TAB 325 MG TAB PO PRN (10:36)
[2023-03-14] MEDS: APIXABAN 2.5 MG TABLET PO SCH ×2 (10:37→21:01)
[2023-03-14] MEDS: METOPROLOL SUCCINATE (ER) 25 MG TAB.ER.24H PO SCH (10:37)
[2023-03-14] MEDS: PIPERACILLIN-TAZOBACTAM 3.375 GM in SODIUM CHLORIDE 0.9% 100 ML IVPB SCH ×2 (10:38→21:01)
[2023-03-14] MEDS: busPIRone HCl 5 MG TAB PO SCH ×2 (10:38→21:01)
[2023-03-14 10:41] LABS: African American GFR (CKD) 23 (>60 ml/min/1.73 sqM); Anion Gap 7 mmol/L; Blood Urea Nitrogen 37 mg/dL (7-17); Calcium 7.6 mg/dL (8.4-10.2); Carbon Dioxide 20 mmol/L (22-30); Chloride 108 mmol/L (98-107); Glucose 127 mg/dL (74-99); Non-African American GFR(CKD) 20 (>60 ml/min/1.73 sqM); Sodium 135 mmol/L (137-145); Uric Acid 5.2 mg/dL (3.7-7.4)
[2023-03-14 10:52] LABS: Potassium 3.6 mmol/L (3.5-5.1)
[2023-03-14] MEDS: PROPAFENONE 150 MG TAB PO SCH ×2 (11:47→21:51)
[2023-03-14] MEDS: TOPIRAMATE 25 MG TAB PO SCH (11:47)
[2023-03-14] MEDS: PRAVASTATIN SODIUM 80 MG TAB PO SCH (11:47)
--- NOTE | 2023-03-14 14:19 | P.PN ---
Subjective Progress Note Date: 03/14/23 CHIEF COMPLAINT: Colon perforation after outpatient colonoscopy HISTORY OF PRESENT ILLNESS: Patient is status post exploratory laparotomy with right colectomy on 03/08/2023. Patient resting in bed comfortably. Patient's has been having loose bowel movements. Abdominal pain control. Denies any nausea or vomiting. Afebrile. Creatinine is down to 2.17 potassium 3.6. SURESH drain 10 mL serosanguineous output PHYSICAL EXAM: VITAL SIGNS: Reviewed. GENERAL: Well-developed in no acute distress. ABDOMEN: Soft. Nondistended. Minimal tenderness with palpation incision site. Incisional dressing clean dry and intact. ASSESSMENT: 1. Colon perforation status post exploratory laparotomy with right colectomy 2. Hypokalemia PLAN: -continue low fiber -Acute kidney injury managed by nephrology -Continue antibiotics per infectious disease -Encourage patient to ambulate -Encourage patient to use incentive spirometer -DVT prophylaxis [employer]ician [employer] note has been reviewed by physician. Signing provider agrees with the documented findings, assessment, and plan of care. Objective - Vital Signs Vital signs: Vital Signs Temp 98.2 F 03/14/23 07:45 Pulse 89 03/14/23 07:45 Resp 19 03/14/23 07:45 BP 144/83 03/14/23 07:45 Pulse Ox 97 03/14/23 07:45 FiO2 Intake & Output 03/13/23 03/14/23 03/14/23 18:59 06:59 18:59 Intake Total 830 Output Total 10 Balance 830 -10 Weight 55 kg Intake: IV 10 Invasive Line 3 10 Intake, IV Titration 100 Amount Piperacillin-Tazobactam 3 100 .375 gm In Sodium Chloride 0.9% 100 ml @ 25 mls/hr IVPB Q12HR [facility] Rx #:[id number] Oral 720 Output: Drainage 10 Lower Abdomen 10 Other: Voiding Method Bedside Commode Bedside Commode # Voids 3 2 # Bowel Movements 1 - Labs CBC & Chem 7: 03/12/23 10:53 03/14/23 10:06 Labs: Abnormal Lab Results - Last 24 Hours (Table) 03/14/23 Range/Units 10:06 Sodium 135 L (137-145) mmol/L Chloride 108 H (98-107) mmol/L Carbon Dioxide 20 L (22-30) mmol/L BUN 37 H (7-17) mg/dL Creatinine 2.17 H (0.52-1.04) mg/dL Glucose 127 H (74-99) mg/dL Calcium 7.6 L (8.4-10.2) mg/dL
[2023-03-14] MEDS: DEXTROSE 5% IN WATER 1,000 ML with SODIUM BICARB (1 MEQ/ML) 150 ML IV SCH (14:50)
--- NOTE | 2023-03-14 15:19 | P.PN ---
Subjective Progress Note Date: 03/14/23 Patient is evaluated today resting in bed no acute complaints. Patient is postoperative day #4 exploratory laparotomy with right hemicolectomy for colon perforation. Reports abdominal pain is well-controlled per patient currently receiving IV Dilaudid and tramadol. Patient remains on IV Zosyn, white count today down to 10.7. Patient has had a couple loose bowel movements noted that she is on full liquid diet. She is passing gas. Midline incision is clean and dry. SURESH drain in place with minimal output serosanguineous in color. Creatinine has trended upwards 2.31 today, renal ultrasound requested. Nephrology will also be consulted. Patient is drowsy during the day family feels she may be slightly confused this is likely medication effect. Heart rate remains controlled. 03/13/2023 Patient is evaluated today sitting up in bed eating regular diet. Postoperative day #5 right hemicolectomy. Patient is having bowel movements. Mentation has improved slightly today. Family at bedside feels she has improved as well. Creatinine remains elevated 2.45 today, and patient remains on bicarb gtt. Renal ultrasound shows no obstructive uropathy. Wound cultures showing klebsiella and morganella as well as anaerobic gram neg bacilli. Patient remains on IV zosyn. Patient is being followed closely by PT/OT remains a moderate assist to get to the edge of bed and will require rehab on discharge. 03/14/2023 Patient is postoperative day #6 right hemicolectomy. She reports minimal abdominal pain and is tolerating a regular diet. She is having bowel movements. Patient is more awake and alert. She remains on a bicarb drip and creatinine has improved down to 2.17. Patient does complain of some dysphasia and also that she is holding food in the sides of her mouth. Speech therapy was consulte d for evaluation of this. Microsensitivities are available for discharge antibiotics ID is following closely. Patient needs insurance authorization for discharge to subacute rehab and this has been started. Hemodynamically she is stable. Review of Systems Constitutional: Denied any fatigue denied any fever. Cardio vascular: denied any chest pain, palpitations Gastrointestinal: denied any nausea, vomiting, diarrhea reports difficulty swallowing and patient states she is holding food in the pockets of her mouth. Pulmonary: Denied any shortness of breath cough Neurologic denied any new focal deficits All inpatient medications were reviewed and appropriate changes in these medications as dictated in the interval history and assessment and plan. PHYSICAL EXAMINATION: GENERAL: The patient is alert and oriented x2, not in any acute distress. Well developed, well nourished. HEENT: Pupils are round and equally reacting to light. EOMI. No scleral icterus. No conjunctival pallor. Normocephalic, atraumatic. No pharyngeal erythema. No thyromegaly. CARDIOVASCULAR: S1 and S2 present. No murmurs, rubs, or gallops. PULMONARY: Chest is clear to auscultation, no wheezing or crackles. ABDOMEN: Soft, nontender, nondistended, normoactive bowel sounds. No palpable organomegaly. Post surgical abdomen with midline incision and SURESH drain in place RLQ. MUSCULOSKELETAL: No joint swelling or deformity. EXTREMITIES: No cyanosis, clubbing, or pedal edema. NEUROLOGICAL: Gross neurological examination did not reveal any focal deficits. Diffuse weakness. SKIN: No rashes. Assessment Perforated Colon status post exploratory laparotomy with right colectomy with end to end anastomosis Sepsis secondary to above Altered mental status due to metabolic encephalopathy from kidney injury and sepsis Acute kidney injury due to ATN and hypotension Chronic kidney disease stage IIIA Paroxysmal atrial fibrillation with rapid ventricular rate heart rate is now improved patient is anticoagulated History TIA Hypertension GI Prophylaxis DVT prophylaxis Full code Plan Speech therapy consultation Continue with antibiotics Nephrology consultation patient continues on bicarb gtt Recommend to discontinue Ativan at bedtime and avoid the use of narcotics if possible Patient requires insurance authorization for DC to subacute rehab which has been started F/U BMP in the AM. The impression and plan of care has been dictated by Tomasa Zepeda, Nurse Practitioner as directed. Dr. Sarah MD I have performed a history and physical examination and medical decision making of this patient, discussed the same with the dictator, and agree with the dictators assessment and plan as written, documented as a scribe. Based on total visit time, I have performed more than 50% of this visit. Objective - Vital Signs Vital signs: Vital Signs Temp 98.2 F 03/14/23 07:45 Pulse 89 03/14/23 07:45 Resp 19 03/14/23 07:45 BP 144/83 03/14/23 07:45 Pulse Ox 97 03/14/23 07:45 FiO2 Intake & Output 03/13/23 03/14/23 03/14/23 18:59 06:59 18:59 Intake Total 830 Output Total 10 Balance 830 -10 Weight 55 kg Intake: IV 10 Invasive Line 3 10 Intake, IV Titration 100 Amount Piperacillin-Tazobactam 3 100 .375 gm In Sodium Chloride 0.9% 100 ml @ 25 mls/hr IVPB Q12HR [facility] Rx #:[id number] Oral 720 Output: Drainage 10 Lower Abdomen 10 Other: Voiding Method Bedside Commode Bedside Commode # Voids 3 2 # Bowel Movements 1 - Labs CBC & Chem 7: 03/12/23 10:53 03/14/23 10:06 Labs: Abnormal Lab Results - Last 24 Hours (Table) 03/14/23 Range/Units 10:06 Sodium 135 L (137-145) mmol/L Chloride 108 H (98-107) mmol/L Carbon Dioxide 20 L (22-30) mmol/L BUN 37 H (7-17) mg/dL Creatinine 2.17 H (0.52-1.04) mg/dL Glucose 127 H (74-99) mg/dL Calcium 7.6 L (8.4-10.2) mg/dL Assessment and Plan Time with Patient: Less than 30
[2023-03-14] MEDS ORDERED: POTASSIUM CHLORIDE ER 20 MEQ TAB.ER PO STA (15:55)
--- NOTE | 2023-03-14 15:56 | P.PN ---
Subjective Patient is seen in follow-up for acute kidney injury on chronic kidney disease. Renal function a little improved. On bicarb drip. Has been voiding. Oral intake poor. Denies vomiting or diarrhea. Vital signs are stable. General: No acute distress. HEENT: Head exam is unremarkable. LUNGS: No audible rhonchi or wheezes. HEART: Rate and Rhythm are regular. ABDOMEN: Nontender. SURESH drain noted. EXTREMITITES: Trace edema. Objective - Vital Signs Vital signs: Vital Signs Temp 98.2 F 03/14/23 07:45 Pulse 89 03/14/23 07:45 Resp 19 03/14/23 07:45 BP 144/83 03/14/23 07:45 Pulse Ox 97 03/14/23 07:45 FiO2 Intake & Output 03/13/23 03/14/23 03/14/23 18:59 06:59 18:59 Intake Total 830 Output Total 10 Balance 830 -10 Weight 55 kg Intake: IV 10 Invasive Line 3 10 Intake, IV Titration 100 Amount Piperacillin-Tazobactam 3 100 .375 gm In Sodium Chloride 0.9% 100 ml @ 25 mls/hr IVPB Q12HR [facility] Rx #:[id number] Oral 720 Output: Drainage 10 Lower Abdomen 10 Other: Voiding Method Bedside Commode Bedside Commode # Voids 3 2 # Bowel Movements 1 - Labs CBC & Chem 7: 03/12/23 10:53 03/14/23 10:06 Labs: Abnormal Lab Results - Last 24 Hours (Table) 03/14/23 Range/Units 10:06 Sodium 135 L (137-145) mmol/L Chloride 108 H (98-107) mmol/L Carbon Dioxide 20 L (22-30) mmol/L BUN 37 H (7-17) mg/dL Creatinine 2.17 H (0.52-1.04) mg/dL Glucose 127 H (74-99) mg/dL Calcium 7.6 L (8.4-10.2) mg/dL Assessment and Plan Plan: Assessment: 1. EMRE secondary to ATN due to sepsis and hemodynamic instability. Creatinine 1.35 on admission - 2.15 today. Kidneys noted to be atrophic with no evidence of hydronephrosis. 2. Right colon perforation s/p exp lap with right colectomy 03/08/23. 3. Chronic kidney disease stage IIIA with baseline creatinine 1-1.2 in 2016 in 2017. Suspect nephrosclerosis. 4. Metabolic acidosis secondary to acute kidney injury and topamax. Improving with bicarbonate drip. 5. Severe sepsis secondary to colon perforation on antibiotics. Cultures positive for Klebsiella and Morganella. 6. A. fib with RVR maintained on metoprolol, propafenone and eliquis. Cardiology following. 7. Hypokalemia from poor intake and intracellular shifting from IV bicarb. Plan: Maintain bicarb drip at 75 mL an hour. Encourage oral intake. Replace potassium. Uric acid 5.2. Avoid nephrotoxins. Continue to monitor renal function and urine output.
[2023-03-15] MEDS: DEXTROSE 5% IN WATER 1,000 ML with SODIUM BICARB (1 MEQ/ML) 150 ML IV SCH (03:36)
[2023-03-15] MEDS: PANTOPRAZOLE 40 MG/10 ML VIAL IV SCH (07:31)
[2023-03-15] MEDS: TOPIRAMATE 25 MG TAB PO SCH (09:30)
[2023-03-15] MEDS: METOPROLOL SUCCINATE (ER) 25 MG TAB.ER.24H PO SCH (09:30)
[2023-03-15] MEDS: busPIRone HCl 5 MG TAB PO SCH ×2 (09:30→20:13)
[2023-03-15] MEDS: PRAVASTATIN SODIUM 80 MG TAB PO SCH (09:30)
[2023-03-15] MEDS: APIXABAN 2.5 MG TABLET PO SCH ×2 (09:30→20:12)
[2023-03-15] MEDS: PIPERACILLIN-TAZOBACTAM 3.375 GM in SODIUM CHLORIDE 0.9% 100 ML IVPB SCH ×2 (09:31→20:13)
[2023-03-15] MEDS: PROPAFENONE 150 MG TAB PO SCH ×2 (09:31→20:13)
[2023-03-15] MEDS ORDERED: FUROSEMIDE 10 MG/ML 4 ML VIAL IV STA (11:41)
--- NOTE | 2023-03-15 11:43 | P.PN ---
Subjective Patient is seen in follow-up for acute kidney injury on chronic kidney disease. Renal function slowly improving. Creatinine 2.17 yesterday. On bicarb drip. Has been voiding. Oral intake fair. Denies vomiting or diarrhea. Vital signs are stable. General: No acute distress. HEENT: Head exam is unremarkable. LUNGS: No audible rhonchi or wheezes. HEART: Rate and Rhythm are regular. ABDOMEN: Nontender. SURESH drain noted. EXTREMITITES: Trace edema. Objective - Vital Signs Vital signs: Vital Signs Temp 98.5 F 03/15/23 07:11 Pulse 95 03/15/23 09:29 Resp 16 03/15/23 07:11 BP 132/81 03/15/23 07:11 Pulse Ox 98 03/15/23 09:29 FiO2 Intake & Output 03/14/23 03/15/23 03/15/23 18:59 06:59 18:59 Weight 54 kg Other: Voiding Method Bedside Commode # Voids 5 # Bowel Movements 6 - Labs CBC & Chem 7: 03/12/23 10:53 03/14/23 10:06 Assessment and Plan Plan: Assessment: 1. EMRE secondary to ATN due to sepsis and hemodynamic instability. Creatinine 1.35 on admission - 2.17 yesterday. Kidneys noted to be atrophic with no eviden ce of hydronephrosis. 2. Right colon perforation s/p exp lap with right colectomy 03/08/23. 3. Chronic kidney disease stage IIIA with baseline creatinine 1-1.2 in 2016 in 2017. Suspect nephrosclerosis. 4. Metabolic acidosis secondary to acute kidney injury and topamax. Improving with bicarbonate drip. 5. Severe sepsis secondary to colon perforation on antibiotics. Cultures positive for Klebsiella and Morganella. 6. A. fib with RVR maintained on metoprolol, propafenone and eliquis. Cardi ology following. 7. Hypokalemia from poor intake and intracellular shifting from IV bicarb. Replaced. 8. Edema. Plan: Hep-Lock IV fluids. Encourage oral intake. Lasix 40 mg IV once today. Uric acid 5.2. Avoid nephrotoxins. Continue to monitor renal function and urine output. Morning labs pending.
--- NOTE | 2023-03-15 13:08 | P.PN ---
Subjective Progress Note Date: 03/15/23 CHIEF COMPLAINT: Colon perforation after outpatient colonoscopy HISTORY OF PRESENT ILLNESS: Patient is status post exploratory laparotomy with right colectomy on 03/08/2023. Patient resting in bed comfortably. Patient's has been having bowel movements. Denies abdominal pain. Denies any nausea or vomiting. Afebrile. Patient evaluated by us speech therapy for swallowing eval. Patient having issues with chewing food and has dentures. Diet has been changed to chopped diet. SURESH drain with minimal output. Labs pending. Awaiting insurance authorization for ECF placement. PHYSICAL EXAM: VITAL SIGNS: Reviewed. GENERAL: Well-developed in no acute distress. ABDOMEN: Soft. Nondistended. Minimal tenderness with palpation incision site. Incisional dressing clean dry and intact. ASSESSMENT: 1. Colon perforation status post exploratory laparotomy with right colectomy PLAN: -continue low fiber -Acute kidney injury managed by nephrology -Continue antibiotics per infectious disease -Encourage patient to ambulate -Encourage patient to use incentive spirometer -DVT prophylaxis Pepe Physician Physics Tutor note has been reviewed by physician. Signing provider agrees with the documented findings, assessment, and plan of care. I have personally seen and examined the patient, reviewed the COVERING MACHINE OPERATOR HELPER /PAs history, exam and MDM and agree with the assessment and plan as written. Based on total visit time, I have performed more than 50% of the visit. As above: Patient doing better today. Energy level is improved. Tolerating diet. Good bowel function. Plan discharge to ECF tomorrow. Objective - Vital Signs Vital signs: Vital Signs Temp 98.5 F 03/15/23 07:11 Pulse 95 03/15/23 09:29 Resp 16 03/15/23 07:11 BP 132/81 03/15/23 07:11 Pulse Ox 98 03/15/23 09:29 FiO2 Intake & Output 03/14/23 03/15/23 03/15/23 18:59 06:59 18:59 Weight 54 kg Other: Voiding Method Bedside Commode # Voids 5 # Bowel Movements 6 - Labs CBC & Chem 7: 03/12/23 10:53 03/14/23 10:06
[2023-03-15 17:26] LABS: Glucose,Whole Blood 158 mg/dL (70-110)
[2023-03-15 17:59] LABS: BUN/Creat Ratio 13.43 Ratio (12.00-20.00); Blood Urea Nitrogen 30.9 mg/dL (9.0-27.0); Chloride 109 mmol/L (96-109); Glucose 99 mg/dL (70-110); Magnesium 2.2 mg/dL (1.5-2.4); Potassium 3.9 mmol/L (3.5-5.5); Sodium 140 mmol/L (135-145)
--- NOTE | 2023-03-15 20:44 | P.PN ---
Subjective Progress Note Date: 03/15/23 Patient is evaluated today resting in bed no acute complaints. Patient is postoperative day #4 exploratory laparotomy with right hemicolectomy for colon perforation. Reports abdominal pain is well-controlled per patient currently receiving IV Dilaudid and tramadol. Patient remains on IV Zosyn, white count today down to 10.7. Patient has had a couple loose bowel movements noted that she is on full liquid diet. She is passing gas. Midline incision is clean and dry. SURESH drain in place with minimal output serosanguineous in color. Creatinine has trended upwards 2.31 today, renal ultrasound requested. Nephrology will also be consulted. Patient is drowsy during the day family feels she may be slightly confused this is likely medication effect. Heart rate remains controlled. 03/13/2023 Patient is evaluated today sitting up in bed eating regular diet. Postoperative day #5 right hemicolectomy. Patient is having bowel movements. Mentation has improved slightly today. Family at bedside feels she has improved as well. Creatinine remains elevated 2.45 today, and patient remains on bicarb gtt. Renal ultrasound shows no obstructive uropathy. Wound cultures showing klebsiella and morganella as well as anaerobic gram neg bacilli. Patient remains on IV zosyn. Patient is being followed closely by PT/OT remains a moderate assist to get to the edge of bed and will require rehab on discharge. 03/14/2023 Patient is postoperative day #6 right hemicolectomy. She reports minimal abdominal pain and is tolerating a regular diet. She is having bowel movements. Patient is more awake and alert. She remains on a bicarb drip and creatinine has improved down to 2.17. Patient does complain of some dysphasia and also that she is holding food in the sides of her mouth. Speech therapy was consulte d for evaluation of this. Microsensitivities are available for discharge antibiotics ID is following closely. Patient needs insurance authorization for discharge to subacute rehab and this has been started. Hemodynamically she is stable. 03/15/2023 Patient is postoperative day #7 right hemicolectomy. Patient has minimal abominal pain main complaint today is difficulty swallowing holding food bolus in her mouth. Speech therapy evaluated the patient and recommending dysphagia level 3 chopped diet due to ill fitting dentures and tongue and jaw tremors. Patient needs no further skilled ST services. Creatinine today up to 2.3 and IV lasix given x 1, IV bicarbonate has been stopped. Patient is pending insurance authorization for DC to subacute rehab. Patient has 3 isolates from the abdomen culture and due to drug interactions with sotolol, ID recommending 1 week of IV antibiotics on discharge. Review of Systems Constitutional: Denied any fatigue denied any fever. Cardio vascular: denied any chest pain, palpitations Gastrointestinal: denied any nausea, vomiting, diarrhea Pulmonary: Denied any shortness of breath cough Neurologic denied any new focal deficits All inpatient medications were reviewed and appropriate changes in these medications as dictated in the interval history and assessment and plan. PHYSICAL EXAMINATION: GENERAL: The patient is alert and oriented x2, not in any acute distress. Well developed, well nourished. HEENT: Pupils are round and equally reacting to light. EOMI. No scleral icterus. No conjunctival pallor. Normocephalic, atraumatic. No pharyngeal erythema. No thyromegaly. CARDIOVASCULAR: S1 and S2 present. No murmurs, rubs, or gallops. PULMONARY: Chest is clear to auscultation, no wheezing or crackles. ABDOMEN: Soft, nontender, nondistended, normoactive bowel sounds. No palpable organomegaly. Post surgical abdomen with midline incision. MUSCULOSKELETAL: No joint swelling or deformity. EXTREMITIES: No cyanosis, clubbing, or pedal edema. NEUROLOGICAL: Gross neurological examination did not reveal any focal deficits. Diffuse weakness. SKIN: No rashes. Assessment Perforated Colon status post exploratory laparotomy with right colectomy with end to end anastomosis Sepsis secondary to above Altered mental status due to metabolic encephalopathy from kidney injury and sepsis Acute kidney injury due to ATN and hypotension Chronic kidney disease stage IIIA Paroxysmal atrial fibrillation with rapid ventricular rate heart rate is now improved patient is anticoagulated History TIA Hypertension GI Prophylaxis DVT prophylaxis Full code Plan Speech therapy consultation diet downgraded to dysphagia 3 chopped Continue with antibiotics and ID recommending 1 week IV antibiotics on discharge thru midline which has been ordered. This is due to drug interactions btween oral antibiotics and sotolol. Nephrology following, IV lasix x1 given today and bicarb gtt stopped. Recommend to discontinue Ativan at bedtime and avoid the use of narcotics if possible Patient requires insurance authorization for DC to subacute rehab which has been started F/U BMP in the AM. The impression and plan of care has been dictated by Tomasa Zepeda, Nurse Practitioner as directed. Dr. Sarah MD I have performed a history and physical examination and medical decision making of this patient, discussed the same with the dictator, and agree with the dictators assessment and plan as written, documented as a scribe. Based on total visit time, I have performed more than 50% of this visit. Objective - Vital Signs Vital signs: Vital Signs Temp 97.8 F 03/15/23 13:16 Pulse 87 03/15/23 13:16 Resp 16 03/15/23 13:16 BP 131/58 03/15/23 13:16 Pulse Ox 98 03/15/23 13:16 FiO2 Intake & Output 03/14/23 03/15/23 03/15/23 18:59 06:59 18:59 Weight 54 kg 54 kg Other: Voiding Method Bedside Commode # Voids 5 # Bowel Movements 6 - Labs CBC & Chem 7: 03/12/23 10:53 03/15/23 05:01 Labs: Abnormal Lab Results - Last 24 Hours (Table) 03/15/23 03/15/23 Range/Units 05:01 17:24 Carbon Dioxide 18.0 L (21.6-31.8) mmol/L Anion Gap 13.00 H (4.00-12.00) mmol/L BUN 30.9 H (9.0-27.0) mg/dL Creatinine 2.3 H (0.6-1.5) mg/dL Est GFR (CKD-EPI) 20 L (>=60) POC Glucose (mg/dL) 158 H (70-110) mg/dL Calcium 8.0 L (8.7-10.3) mg/dL Assessment and Plan Time with Patient: Less than 30
[2023-03-16] MEDS: METOPROLOL SUCCINATE (ER) 25 MG TAB.ER.24H PO SCH (08:40)
[2023-03-16] MEDS: PANTOPRAZOLE 40 MG/10 ML VIAL IV SCH (08:40)
[2023-03-16] MEDS: busPIRone HCl 5 MG TAB PO SCH ×2 (08:40→21:12)
[2023-03-16] MEDS: APIXABAN 2.5 MG TABLET PO SCH ×2 (08:40→21:12)
[2023-03-16] MEDS: TOPIRAMATE 25 MG TAB PO SCH (08:41)
[2023-03-16] MEDS: PRAVASTATIN SODIUM 80 MG TAB PO SCH (08:41)
[2023-03-16] MEDS: PIPERACILLIN-TAZOBACTAM 3.375 GM in SODIUM CHLORIDE 0.9% 100 ML IVPB SCH ×2 (08:41→21:12)
[2023-03-16] MEDS: PROPAFENONE 150 MG TAB PO SCH ×2 (08:41→22:46)
[2023-03-16 09:42] LABS: African American GFR (CKD) 21 (>60 ml/min/1.73 sqM); Anion Gap 7 mmol/L; Blood Urea Nitrogen 30 mg/dL (7-17); Carbon Dioxide 25 mmol/L (22-30); Chloride 105 mmol/L (98-107); Glucose 133 mg/dL (74-99); Magnesium 2.1 mg/dL (1.6-2.3); Non-African American GFR(CKD) 18 (>60 ml/min/1.73 sqM); Potassium 3.2 mmol/L (3.5-5.1); Sodium 137 mmol/L (137-145)
[2023-03-16] MEDS: POTASSIUM CHLORIDE ER 20 MEQ TAB.ER PO SCH ×3 (10:33→12:39)
--- NOTE | 2023-03-16 11:52 | P.PN ---
Subjective Patient is seen in follow-up for acute kidney injury on chronic kidney disease. Renal function fairly stable. Off IV fluids. Has been voiding. Oral intake fair. Denies vomiting or diarrhea. Vital signs are stable. General: No acute distress. HEENT: Head exam is unremarkable. LUNGS: No audible rhonchi or wheezes. HEART: Rate and Rhythm are regular. ABDOMEN: Nontender. SURESH drain noted. EXTREMITITES: 1+ edema. Objective - Vital Signs Vital signs: Vital Signs Temp 98.6 F 03/16/23 08:28 Pulse 102 H 03/16/23 08:28 Resp 14 03/16/23 08:28 BP 108/68 03/16/23 08:28 Pulse Ox 99 03/16/23 08:28 FiO2 Intake & Output 03/15/23 03/16/23 03/16/23 18:59 06:59 18:59 Weight 54 kg 53 kg Other: Voiding Method Bedside Commode # Voids 4 2 # Bowel Movements 3 1 - Labs CBC & Chem 7: 03/12/23 10:53 03/16/23 08:19 Labs: Abnormal Lab Results - Last 24 Hours (Table) 03/15/23 03/15/23 03/16/23 Range/Units 05:01 17:24 08:19 Potassium 3.2 L (3.5-5.1) mmol/L Carbon Dioxide 18.0 L (21.6-31.8) mmol/L Anion Gap 13.00 H (4.00-12.00) mmol/L BUN 30.9 H 30 H (9.0-27.0) mg/dL Creatinine 2.3 H 2.35 H (0.6-1.5) mg/dL Est GFR (CKD-EPI) 20 L (>=60) Glucose 133 H (74-99) mg/dL POC Glucose (mg/dL) 158 H (70-110) mg/dL Calcium 8.0 L 8.0 L (8.7-10.3) mg/dL Assessment and Plan Plan: Assessment: 1. EMRE secondary to ATN due to sepsis and hemodynamic instability. Renal function stable - creatinine 2.35 today. Kidneys noted to be atrophic with no evidence of hydronephrosis. 2. Right colon perforation s/p exp lap with right colectomy 03/08/23. 3. Chronic kidney disease stage IIIA with baseline creatinine 1-1.2 in 2016 in 2017. Suspect nephrosclerosis. 4. Metabolic acidosis secondary to acute kidney injury and topamax. Improving with bicarbonate drip. 5. Severe sepsis secondary to colon perforation on antibiotics. Cultures positive for Klebsiella and Morganella. 6. A. fib with RVR maintained on metoprolol, propafenone and eliquis. Cardiology following. 7. Hypokalemia from poor intake and diuretics. Magnesium normal. 8. Edema. Plan: Encourage oral intake. Add IV Lasix 40 mg twice daily. Avoid nephrotoxins. Continue to monitor renal function and urine output. Replace potassium.
[2023-03-16] MEDS: FUROSEMIDE 10 MG/ML 4 ML VIAL IV SCH ×2 (11:57→21:12)
--- NOTE | 2023-03-16 13:24 | P.PN ---
Subjective Progress Note Date: 03/16/23 CHIEF COMPLAINT: Colon perforation after outpatient colonoscopy HISTORY OF PRESENT ILLNESS: Patient is status post exploratory laparotomy with right colectomy on 03/08/2023. Patient reports her pain is controlled. She is having bowel movements. She still having issues with chewing her food with the chopped diet. Nephrology wants patient's stay and receive IV Lasix for fluid overload. PHYSICAL EXAM: VITAL SIGNS: Reviewed. GENERAL: Well-developed in no acute distress. ABDOMEN: Soft. Nondistended. nontender. Incisional dressing clean dry and intact. ASSESSMENT: 1. Colon perforation status post exploratory laparotomy with right colectomy PLAN: -change diet to ground -Continue antibiotics per infectious disease -Encourage patient to ambulate -Encourage patient to use incentive spirometer -DVT prophylaxis Eliquis -Patient will need ECF at discharge Physician Glove [employer]er note has been reviewed by physician. Signing provider agrees with the documented findings, assessment, and plan of care. Objective - Vital Signs Vital signs: Vital Signs Temp 98.6 F 03/16/23 08:28 Pulse 102 H 03/16/23 08:28 Resp 14 03/16/23 08:28 BP 108/68 03/16/23 08:28 Pulse Ox 99 03/16/23 08:28 FiO2 Intake & Output 03/15/23 03/16/23 03/16/23 18:59 06:59 18:59 Weight 54 kg 53 kg Other: Voiding Method Bedside Commode # Voids 4 2 # Bowel Movements 3 1 - Labs CBC & Chem 7: 03/12/23 10:53 03/16/23 08:19 Labs: Abnormal Lab Results - Last 24 Hours (Table) 03/15/23 03/15/23 03/16/23 Range/Units 05:01 17:24 08:19 Potassium 3.2 L (3.5-5.1) mmol/L Carbon Dioxide 18.0 L (21.6-31.8) mmol/L Anion Gap 13.00 H (4.00-12.00) mmol/L BUN 30.9 H 30 H (9.0-27.0) mg/dL Creatinine 2.3 H 2.35 H (0.6-1.5) mg/dL Est GFR (CKD-EPI) 20 L (>=60) Glucose 133 H (74-99) mg/dL POC Glucose (mg/dL) 158 H (70-110) mg/dL Calcium 8.0 L 8.0 L (8.7-10.3) mg/dL
--- NOTE | 2023-03-16 17:12 | P.PN ---
Subjective Progress Note Date: 03/14/23 Principal diagnosis: Perforated bowel and peritonitis Patient is a 87-year-old female with a past medical history difficult for CVA/TIA, hypertension and heart failure along with anxiety presenting to the hospital with abdominal pain apparently the patient recently did have a colonoscopy before her abdominal pain started patient was evaluated at the outside facility with the patient was noticed to have a perforated colon, patient was taken to the OR and status post right hemicolectomy and abdominal cultures.Patient did well due to A-fib with RVR for the patient was transferred to cardiology unit. On today's evaluation that is 03/14/2023, patient remains to be afebrile, the patient is breathing comfortably on room air, patient denies any chest pain shortness of breath or cough, the patient abdominal pain has decreased in intensity no nausea no vomiting tolerating her diet and did have a bowel movement for the nursing staff Patient white count is 10.7 as of 03/12/2023, no CBC done today, creatinine is 2.17, abdominal culture positive for Klebsiella and Morganella which is slightly resistant but sensitive to Zosyn Objective - Vital Signs Vital signs: Vital Signs Temp 97.9 F 03/14/23 15:15 Pulse 62 03/14/23 15:15 Resp 19 03/14/23 15:15 BP 150/77 03/14/23 15:15 Pulse Ox 100 03/14/23 15:15 FiO2 Intake & Output 03/13/23 03/14/23 03/14/23 18:59 06:59 18:59 Intake Total 830 Output Total 10 Balance 830 -10 Weight 55 kg Intake: IV 10 Invasive Line 3 10 Intake, IV Titration 100 Amount Piperacillin-Tazobactam 3 100 .375 gm In Sodium Chloride 0.9% 100 ml @ 25 mls/hr IVPB Q12HR [facility] Rx #:[id number] Oral 720 Output: Drainage 10 Lower Abdomen 10 Other: Voiding Method Bedside Commode Bedside Commode # Voids 3 2 5 # Bowel Movements 1 6 - Exam GENERAL DESCRIPTION: An alert female up in the chair in no distress RESPIRATORY SYSTEM: Unlabored breathing , decreased breath sounds at bases HEART: S1 S2 regular rate and rhythm , ABDOMEN: Soft , no tenderness EXTREMITIES: No edema feet - Labs CBC & Chem 7: 03/12/23 10:53 03/16/23 08:19 Labs: Abnormal Lab Results - Last 24 Hours (Table) 03/14/23 Range/Units 10:06 Sodium 135 L (137-145) mmol/L Chloride 108 H (98-107) mmol/L Carbon Dioxide 20 L (22-30) mmol/L BUN 37 H (7-17) mg/dL Creatinine 2.17 H (0.52-1.04) mg/dL Glucose 127 H (74-99) mg/dL Calcium 7.6 L (8.4-10.2) mg/dL Assessment and Plan (1) Peritonitis Current Visit: Yes Status: Acute Code(s): K65.9 - PERITONITIS, UNSPECIFIED SNOMED Code(s): 07773068 (2) Bowel perforation Current Visit: Yes Status: Acute Code(s): K63.1 - PERFORATION OF INTESTINE (NONTRAUMATIC) SNOMED Code(s): 48537410 Plan: 1patient presented hospital abdominal pain has been diagnosed with perforated colon patient with a secondary peritonitis in this patient who is status post laparotomy and right hemicolectomy we will need to cover for the polymicrobial enteric michael usually associated with colon perforation, culture has been obtained, currently growing Klebsiella drug-resistant Morganella and anaerobes. 2patient has shown clinical improvement we will continue the patient on Zosyn , cannot use oral Cipro as the patient on Rythmol and the patient in short course of IV antibiotics on discharge Son at the bedside questions were answered Dictation was produced using [employer] dictation software. please excuse any grammatical, word or spelling errors. Time with Patient: Less than 30
--- NOTE | 2023-03-16 17:13 | P.PN ---
Subjective Progress Note Date: 03/15/23 Principal diagnosis: Perforated bowel and peritonitis Patient is a 87-year-old female with a past medical history difficult for CVA/TIA, hypertension and heart failure along with anxiety presenting to the hospital with abdominal pain apparently the patient recently did have a colonoscopy before her abdominal pain started patient was evaluated at the outside facility with the patient was noticed to have a perforated colon, patient was taken to the OR and status post right hemicolectomy and abdominal cultures.Patient did well due to A-fib with RVR for the patient was transferred to cardiology unit. On today's evaluation that is 03/15/2023, patient continues to be afebrile, the patient is breathing comfortably on room air, patient denies any chest pain shortness of breath or cough, the patient abdominal pain has decreased in intensity and the patient has been tolerating her diet, no nausea no vomiting and no diarrhea has been reported Patient white count is 10.7 as of 03/12/2023, no CBC done today, creatinine is 2.3, abdominal culture positive for Klebsiella and Morganella which is slightly resistant but sensitive to Zosyn Objective - Vital Signs Vital signs: Vital Signs Temp 97.8 F 03/15/23 13:16 Pulse 87 03/15/23 13:16 Resp 16 03/15/23 13:16 BP 131/58 03/15/23 13:16 Pulse Ox 98 03/15/23 13:16 FiO2 Intake & Output 03/14/23 03/15/23 03/15/23 18:59 06:59 18:59 Weight 54 kg 54 kg Other: Voiding Method Bedside Commode # Voids 5 # Bowel Movements 6 - Exam GENERAL DESCRIPTION: An alert female up in the chair in no distress RESPIRATORY SYSTEM: Unlabored breathing , decreased breath sounds at bases HEART: S1 S2 regular rate and rhythm , ABDOMEN: Soft , no tenderness EXTREMITIES: No edema feet - Labs CBC & Chem 7: 03/12/23 10:53 03/16/23 08:19 Assessment and Plan (1) Peritonitis Current Visit: Yes Status: Acute Code(s): K65.9 - PERITONITIS, UNSPECIFIED SNOMED Code(s): 82809150 (2) Bowel perforation Current Visit: Yes Status: Acute Code(s): K63.1 - PERFORATION OF INTESTINE (NONTRAUMATIC) SNOMED Code(s): 47540440 Plan: 1patient presented hospital abdominal pain has been diagnosed with perforated colon patient with a secondary peritonitis in this patient who is status post laparotomy and right hemicolectomy we will need to cover for the polymicrobial enteric michael usually associated with colon perforation, culture has been obtained, currently growing Klebsiella drug-resistant Morganella and anaerobes. 2patient remains to be afebrile and white count was normal, we will continue the patient on Zosyn and monitor clinical course closely Son at the bedside questions were answered Dictation was produced using [employer] dictation software. please excuse any grammatical, word or spelling errors. Time with Patient: Less than 30
--- NOTE | 2023-03-16 17:14 | P.PN ---
Subjective Progress Note Date: 03/16/23 Principal diagnosis: Perforated bowel and peritonitis Patient is a 87-year-old female with a past medical history difficult for CVA/TIA, hypertension and heart failure along with anxiety presenting to the hospital with abdominal pain apparently the patient recently did have a colonoscopy before her abdominal pain started patient was evaluated at the outside facility with the patient was noticed to have a perforated colon, patient was taken to the OR and status post right hemicolectomy and abdominal cultures.Patient did well due to A-fib with RVR for the patient was transferred to cardiology unit. On today's evaluation that is 03/16/2023, patient denies any fever or any chills, the patient is breathing comfortably on room air, patient denies any chest pain shortness of breath or cough, the patient denies any nausea no vomiting tolerating her diet no abdominal pain and no diarrhea Patient white count is 10.7 as of 03/12/2023, no CBC done today, creatinine is 2.35, abdominal culture positive for Klebsiella and Morganella which is slightly resistant but sensitive to Zosyn Objective - Vital Signs Vital signs: Vital Signs Temp 98.6 F 03/16/23 08:28 Pulse 102 H 03/16/23 08:28 Resp 14 03/16/23 08:28 BP 108/68 03/16/23 08:28 Pulse Ox 99 03/16/23 08:28 FiO2 Intake & Output 03/15/23 03/16/23 03/16/23 18:59 06:59 18:59 Weight 54 kg 53 kg Other: Voiding Method Bedside Commode # Voids 4 1 # Bowel Movements 3 1 - Exam GENERAL DESCRIPTION: An alert female up in the chair in no distress RESPIRATORY SYSTEM: Unlabored breathing , decreased breath sounds at bases HEART: S1 S2 regular rate and rhythm , ABDOMEN: Soft , no tenderness EXTREMITIES: No edema feet - Labs CBC & Chem 7: 03/12/23 10:53 03/16/23 08:19 Labs: Abnormal Lab Results - Last 24 Hours (Table) 03/15/23 03/15/23 03/16/23 Range/Units 05:01 17:24 08:19 Potassium 3.2 L (3.5-5.1) mmol/L Carbon Dioxide 18.0 L (21.6-31.8) mmol/L Anion Gap 13.00 H (4.00-12.00) mmol/L BUN 30.9 H 30 H (9.0-27.0) mg/dL Creatinine 2.3 H 2.35 H (0.6-1.5) mg/dL Est GFR (CKD-EPI) 20 L (>=60) Glucose 133 H (74-99) mg/dL POC Glucose (mg/dL) 158 H (70-110) mg/dL Calcium 8.0 L 8.0 L (8.7-10.3) mg/dL Assessment and Plan (1) Peritonitis Current Visit: Yes Status: Acute Code(s): K65.9 - PERITONITIS, UNSPECIFIED SNOMED Code(s): 54251840 (2) Bowel perforation Current Visit: Yes Status: Acute Code(s): K63.1 - PERFORATION OF INTESTINE (NONTRAUMATIC) SNOMED Code(s): 91008053 Plan: 1patient presented hospital abdominal pain has been diagnosed with perforated colon patient with a secondary peritonitis in this patient who is status post laparotomy and right hemicolectomy we will need to cover for the polymicrobial enteric michael usually associated with colon perforation, culture has been obtained, currently growing Klebsiella drug-resistant Morganella and anaerobes. 2patient remains to be afebrile and white count was normal, we will continue the patient on Zosyn and repeat a CBC CRP with a.m. lab Son at the bedside questions were answered Dictation was produced using [employer] dictation software. please excuse any g rammatical, word or spelling errors. Time with Patient: Less than 30
--- NOTE | 2023-03-16 17:38 | P.PN ---
Subjective Progress Note Date: 03/16/23 Patient is evaluated today resting in bed no acute complaints. Patient is postoperative day #4 exploratory laparotomy with right hemicolectomy for colon perforation. Reports abdominal pain is well-controlled per patient currently receiving IV Dilaudid and tramadol. Patient remains on IV Zosyn, white count today down to 10.7. Patient has had a couple loose bowel movements noted that she is on full liquid diet. She is passing gas. Midline incision is clean and dry. SURESH drain in place with minimal output serosanguineous in color. Creatinine has trended upwards 2.31 today, renal ultrasound requested. Nephrology will also be consulted. Patient is drowsy during the day family feels she may be slightly confused this is likely medication effect. Heart rate remains controlled. 03/13/2023 Patient is evaluated today sitting up in bed eating regular diet. Postoperative day #5 right hemicolectomy. Patient is having bowel movements. Mentation has improved slightly today. Family at bedside feels she has improved as well. Creatinine remains elevated 2.45 today, and patient remains on bicarb gtt. Renal ultrasound shows no obstructive uropathy. Wound cultures showing klebsiella and morganella as well as anaerobic gram neg bacilli. Patient remains on IV zosyn. Patient is being followed closely by PT/OT remains a moderate assist to get to the edge of bed and will require rehab on discharge. 03/14/2023 Patient is postoperative day #6 right hemicolectomy. She reports minimal abdominal pain and is tolerating a regular diet. She is having bowel movements. Patient is more awake and alert. She remains on a bicarb drip and creatinine has improved down to 2.17. Patient does complain of some dysphasia and also that she is holding food in the sides of her mouth. Speech therapy was consulte d for evaluation of this. Microsensitivities are available for discharge antibiotics ID is following closely. Patient needs insurance authorization for discharge to subacute rehab and this has been started. Hemodynamically she is stable. 03/15/2023 Patient is postoperative day #7 right hemicolectomy. Patient has minimal abominal pain main complaint today is difficulty swallowing holding food bolus in her mouth. Speech therapy evaluated the patient and recommending dysphagia level 3 chopped diet due to ill fitting dentures and tongue and jaw tremors. Patient needs no further skilled ST services. Creatinine today up to 2.3 and IV lasix given x 1, IV bicarbonate has been stopped. Patient is pending insurance authorization for DC to subacute rehab. Patient has 3 isolates from the abdomen culture and due to drug interactions with sotolol, ID recommending 1 week of IV antibiotics on discharge. 03/16/2023 Patient is postoperative day #8 hemicolectomy for perforated colon. She remains on IV antibiotics and cultures are showing Klebsiella and Morganella with anaerobic gram-negative bacilli. For now patient continues on IV Zosyn. Recommending a course of IV antibiotics on discharge from weeks duration. Patient is being followed by nephrology IV fluids have been stopped the patient is being given IV Lasix creatinine is up to 25 today patient does have some lower extremity peripheral edema. Potassium is also 3.2 today. Review of Systems Constitutional: Denied any fatigue denied any fever. Cardio vascular: denied any chest pain, palpitations Gastrointestinal: denied any nausea, vomiting, diarrhea Pulmonary: Denied any shortness of breath cough Neurologic denied any new focal deficits All inpatient medications were reviewed and appropriate changes in these medications as dictated in the interval history and assessment and plan. PHYSICAL EXAMINATION: GENERAL: The patient is alert and oriented x2, not in any acute distress. Well developed, well nourished. HEENT: Pupils are round and equally reacting to light. EOMI. No scleral icterus. No conjunctival pallor. Normocephalic, atraumatic. No pharyngeal erythema. No thyromegaly. CARDIOVASCULAR: S1 and S2 present. No murmurs, rubs, or gallops. PULMONARY: Chest is clear to auscultation, no wheezing or crackles. ABDOMEN: Soft, nontender, nondistended, normoactive bowel sounds. No palpable organomegaly. Post surgical abdomen with midline incision. MUSCULOSKELETAL: No joint swelling or deformity. EXTREMITIES: No cyanosis, clubbing, or pedal edema. NEUROLOGICAL: Gross neurological examination did not reveal any focal deficits. Diffuse weakness. SKIN: No rashes. Assessment Perforated Colon status post exploratory laparotomy with right colectomy with end to end anastomosis Sepsis secondary to above Altered mental status due to metabolic encephalopathy from kidney injury and sepsis Volume overload Acute kidney injury due to ATN and hypotension Chronic kidney disease stage IIIA Paroxysmal atrial fibrillation with rapid ventricular rate heart rate is now improved patient is anticoagulated History TIA Hypertension GI Prophylaxis DVT prophylaxis Full code Plan Speech therapy consultation diet downgraded to dysphagia 3 chopped Continue with antibiotics and ID recommending 1 week IV antibiotics on discharge thru midline which has been ordered. Nephrology following, added IV Lasix twice a day Recommend to discontinue Ativan at bedtime and avoid the use of narcotics if possible Patient requires insurance authorization for DC to subacute rehab which has been started F/U BMP in the AM. The impression and plan of care has been dictated by Tomasa Zepeda, Nurse Practitioner as directed. Dr. Sarah MD I have performed a history and physical examination and medical decision making of this patient, discussed the same with the dictator, and agree with the dictators assessment and plan as written, documented as a scribe. Based on total visit time, I have performed more than 50% of this visit. Objective - Vital Signs Vital signs: Vital Signs Temp 97.9 F 03/16/23 13:59 Pulse 98 03/16/23 13:59 Resp 18 03/16/23 13:59 BP 126/67 03/16/23 13:59 Pulse Ox 99 03/16/23 13:59 FiO2 Intake & Output 03/15/23 03/16/23 03/16/23 18:59 06:59 18:59 Weight 54 kg 53 kg Other: Voiding Method Bedside Commode # Voids 4 1 # Bowel Movements 3 1 - Labs CBC & Chem 7: 03/12/23 10:53 03/16/23 08:19 Labs: Abnormal Lab Results - Last 24 Hours (Table) 03/15/23 03/15/23 03/16/23 Range/Units 05:01 17:24 08:19 Potassium 3.2 L (3.5-5.1) mmol/L Carbon Dioxide 18.0 L (21.6-31.8) mmol/L Anion Gap 13.00 H (4.00-12.00) mmol/L BUN 30.9 H 30 H (9.0-27.0) mg/dL Creatinine 2.3 H 2.35 H (0.6-1.5) mg/dL Est GFR (CKD-EPI) 20 L (>=60) Glucose 133 H (74-99) mg/dL POC Glucose (mg/dL) 158 H (70-110) mg/dL Calcium 8.0 L 8.0 L (8.7-10.3) mg/dL Assessment and Plan Time with Patient: Less than 30
[2023-03-17] MEDS: PROPAFENONE 150 MG TAB PO SCH ×2 (07:56→20:50)
[2023-03-17] MEDS: PRAVASTATIN SODIUM 80 MG TAB PO SCH (07:56)
[2023-03-17] MEDS: APIXABAN 2.5 MG TABLET PO SCH ×2 (07:57→20:49)
[2023-03-17] MEDS: PANTOPRAZOLE 40 MG/10 ML VIAL IV SCH (07:57)
[2023-03-17] MEDS: METOPROLOL SUCCINATE (ER) 25 MG TAB.ER.24H PO SCH (07:57)
[2023-03-17] MEDS: FUROSEMIDE 10 MG/ML 4 ML VIAL IV SCH ×2 (07:57→20:50)
[2023-03-17] MEDS: TOPIRAMATE 25 MG TAB PO SCH (07:57)
[2023-03-17] MEDS: busPIRone HCl 5 MG TAB PO SCH ×2 (07:57→20:50)
[2023-03-17] MEDS: PIPERACILLIN-TAZOBACTAM 3.375 GM in SODIUM CHLORIDE 0.9% 100 ML IVPB SCH ×2 (07:58→20:50)
[2023-03-17 08:22] LABS: Basophils % (A) 0 %; Eosinophils # (A) 0.2 k/uL (0-0.7); Eosinophils % (A) 2 %; HCT 31.8 % (34.0-46.0); HGB 10.4 gm/dL (11.4-16.0); Lymphocytes # (A) 1.5 k/uL (1.0-4.8); Lymphocytes % (A) 13 %; MCH 31.9 pg (25.0-35.0); MCHC 32.9 g/dL (31.0-37.0); Mean Platelet Volume 7.9; Monocytes # (A) 0.7 k/uL (0-1.0); Monocytes % (A) 6 %; Neutrophils # (A) 9.2 k/uL (1.3-7.7); Neutrophils % (A) 78 %; Platelet Count 385 k/uL (150-450); RBC 3.28 m/uL (3.80-5.40); RDW 13.9 % (11.5-15.5); WBC 11.8 k/uL (3.8-10.6)
[2023-03-17 08:34] LABS: ALT 12 U/L (4-34); AST 21 U/L (14-36); African American GFR (CKD) 21 (>60 ml/min/1.73 sqM); Albumin 2.3 g/dL (3.5-5.0); Albumin/Globulin Ratio 0.8; Alkaline Phosphatase 77 U/L (38-126); Anion Gap 7 mmol/L; Blood Urea Nitrogen 30 mg/dL (7-17); C Reactive Protein 3.9 mg/dL (<1.0); Calcium 8.1 mg/dL (8.4-10.2); Carbon Dioxide 24 mmol/L (22-30); Chloride 109 mmol/L (98-107); Globulin 2.8 g/dL; Glucose 101 mg/dL (74-99); Non-African American GFR(CKD) 18 (>60 ml/min/1.73 sqM); Potassium 3.6 mmol/L (3.5-5.1); Sodium 140 mmol/L (137-145); Total Bilirubin 0.4 mg/dL (0.2-1.3); Total Protein 5.1 g/dL (6.3-8.2)
--- NOTE | 2023-03-17 10:12 | P.PN ---
Subjective Progress Note Date: 03/17/23 Principal diagnosis: Colon perforation Patient complaining of some nausea this morning. Denies pain. She is afebrile. White blood cell count slightly elevated at 11.8. Drain serosanguineous. Objective - Vital Signs Vital signs: Vital Signs Temp 98.6 F 03/17/23 07:05 Pulse 100 03/17/23 07:05 Resp 18 03/17/23 07:05 BP 125/61 03/17/23 07:05 Pulse Ox 96 03/17/23 07:05 FiO2 Intake & Output 03/16/23 03/17/23 03/17/23 18:59 06:59 18:59 Intake Total 1080 Output Total 1503 2 Balance -423 -2 Weight 53 kg Intake: Oral 1080 Output: Urine 1500 Stool 2 Urine/Stool Mix 3 Other: # Voids 1 1 # Bowel Movements 1 1 - Exam Abdomen: Soft, nontender, nondistended, incision clean and dry - Labs CBC & Chem 7: 03/17/23 07:19 03/17/23 07:19 Labs: Abnormal Lab Results - Last 24 Hours (Table) 03/17/23 03/17/23 Range/Units 07:19 07:19 WBC 11.8 H (3.8-10.6) k/uL RBC 3.28 L (3.80-5.40) m/uL Hgb 10.4 L (11.4-16.0) gm/dL Hct 31.8 L (34.0-46.0) % Neutrophils # 9.2 H (1.3-7.7) k/uL Chloride 109 H (98-107) mmol/L BUN 30 H (7-17) mg/dL Creatinine 2.33 H (0.52-1.04) mg/dL Glucose 101 H (74-99) mg/dL Calcium 8.1 L (8.4-10.2) mg/dL C-Reactive Protein 3.9 H (<1.0) mg/dL Total Protein 5.1 L (6.3-8.2) g/dL Albumin 2.3 L (3.5-5.0) g/dL Assessment and Plan (1) Bowel perforation Narrative/Plan: 87-year-old female doing well after right colectomy for colonic perforation. Patient with some nausea today and mild leukocytosis. If these persist will consider repeat CT abdomen and pelvis. Tentative plans for rehab on Sunday. Repeat labs tomorrow. Current Visit: Yes Status: Acute Code(s): K63.1 - PERFORATION OF INTESTINE (NONTRAUMATIC) SNOMED Code(s): 04665863
--- NOTE | 2023-03-17 15:13 | P.PN ---
Subjective Progress Note Date: 03/17/23 Patient is evaluated today resting in bed no acute complaints. Patient is postoperative day #4 exploratory laparotomy with right hemicolectomy for colon perforation. Reports abdominal pain is well-controlled per patient currently receiving IV Dilaudid and tramadol. Patient remains on IV Zosyn, white count today down to 10.7. Patient has had a couple loose bowel movements noted that she is on full liquid diet. She is passing gas. Midline incision is clean and dry. SURESH drain in place with minimal output serosanguineous in color. Creatinine has trended upwards 2.31 today, renal ultrasound requested. Nephrology will also be consulted. Patient is drowsy during the day family feels she may be slightly confused this is likely medication effect. Heart rate remains controlled. 03/13/2023 Patient is evaluated today sitting up in bed eating regular diet. Postoperative day #5 right hemicolectomy. Patient is having bowel movements. Mentation has improved slightly today. Family at bedside feels she has improved as well. Creatinine remains elevated 2.45 today, and patient remains on bicarb gtt. Renal ultrasound shows no obstructive uropathy. Wound cultures showing klebsiella and morganella as well as anaerobic gram neg bacilli. Patient remains on IV zosyn. Patient is being followed closely by PT/OT remains a moderate assist to get to the edge of bed and will require rehab on discharge. 03/14/2023 Patient is postoperative day #6 right hemicolectomy. She reports minimal abdominal pain and is tolerating a regular diet. She is having bowel movements. Patient is more awake and alert. She remains on a bicarb drip and creatinine has improved down to 2.17. Patient does complain of some dysphasia and also that she is holding food in the sides of her mouth. Speech therapy was consulte d for evaluation of this. Microsensitivities are available for discharge antibiotics ID is following closely. Patient needs insurance authorization for discharge to subacute rehab and this has been started. Hemodynamically she is stable. 03/15/2023 Patient is postoperative day #7 right hemicolectomy. Patient has minimal abominal pain main complaint today is difficulty swallowing holding food bolus in her mouth. Speech therapy evaluated the patient and recommending dysphagia level 3 chopped diet due to ill fitting dentures and tongue and jaw tremors. Patient needs no further skilled ST services. Creatinine today up to 2.3 and IV lasix given x 1, IV bicarbonate has been stopped. Patient is pending insurance authorization for DC to subacute rehab. Patient has 3 isolates from the abdomen culture and due to drug interactions with sotolol, ID recommending 1 week of IV antibiotics on discharge. 03/16/2023 Patient is postoperative day #8 hemicolectomy for perforated colon. She remains on IV antibiotics and cultures are showing Klebsiella and Morganella with anaerobic gram-negative bacilli. For now patient continues on IV Zosyn. Recommending a course of IV antibiotics on discharge from weeks duration. Patient is being followed by nephrology IV fluids have been stopped the patient is being given IV Lasix creatinine is up to 25 today patient does have some lower extremity peripheral edema. Potassium is also 3.2 today. 03/17/2023 Patient evaluated today on the medical floor she is up in the chair. She is postoperative day #9 hemicolectomy. She is having bowel movements she is not reporting much abdominal pain. Patient remains on IV antibiotics with recommendations from ID for outpatient IV antibiotics 1 week on discharge. Patient is being followed by nephrology and continues IV Lasix twice a day Recommending to bladder scan patient monitor for any urinary retention with postvoid residuals. Labs today show a creatinine of 2.33, potassium has improved to 3.6. Her white count is stable at 11.8. Review of Systems Constitutional: Denied any fatigue denied any fever. Cardio vascular: denied any chest pain, palpitations Gastrointestinal: denied any nausea, vomiting, diarrhea Pulmonary: Denied any shortness of breath cough Neurologic denied any new focal deficits All inpatient medications were reviewed and appropriate changes in these medications as dictated in the interval history and assessment and plan. PHYSICAL EXAMINATION: GENERAL: The patient is alert and oriented x2 to 3, not in any acute distress. Well developed, well nourished. HEENT: Pupils are round and equally reacting to light. EOMI. No scleral icterus. No conjunctival pallor. Normocephalic, atraumatic. No pharyngeal erythema. No thyromegaly. CARDIOVASCULAR: S1 and S2 present. No murmurs, rubs, or gallops. PULMONARY: Chest is clear to auscultation, no wheezing or crackles. ABDOMEN: Soft, nontender, nondistended, normoactive bowel sounds. No palpable organomegaly. Post surgical abdomen with midline incision. SURESH drain in place MUSCULOSKELETAL: No joint swelling or deformity. EXTREMITIES: No cyanosis, clubbing, or pedal edema. NEUROLOGICAL: Gross neurological examination did not reveal any focal deficits. Diffuse weakness. SKIN: No rashes. Assessment Perforated Colon status post exploratory laparotomy with right colectomy with end to end anastomosis Sepsis secondary to above Altered mental status due to metabolic encephalopathy from kidney injury and sepsis Volume overload Acute kidney injury due to ATN and hypotension Chronic kidney disease stage IIIA Paroxysmal atrial fibrillation with rapid ventricular rate heart rate is now improved patient is anticoagulated History TIA Hypertension GI Prophylaxis DVT prophylaxis Full code Plan Speech therapy consultation diet downgraded to dysphagia 3 chopped Continue with antibiotics and ID recommending 1 week IV antibiotics on discharge thru midline which has been ordered. Nephrology following, added IV Lasix twice a day recommend bladder scare monitoring of PVR/urinary retention and strict intake and output Recommend to discontinue Ativan at bedtime and avoid the use of narcotics if possible Patient requires insurance authorization for DC to subacute rehab which has been started F/U BMP in the AM. The impression and plan of care has been dictated by Tomasa Zepeda, Nurse Practitioner as directed. Dr. Sarah MD I have performed a history and physical examination and medical decision making of this patient, discussed the same with the dictator, and agree with the dictators assessment and plan as written, documented as a scribe. Based on total visit time, I have performed more than 50% of this visit. Objective - Vital Signs Vital signs: Vital Signs Temp 98.6 F 03/17/23 07:05 Pulse 100 03/17/23 07:05 Resp 18 03/17/23 07:05 BP 125/61 03/17/23 07:05 Pulse Ox 96 03/17/23 07:05 FiO2 Intake & Output 03/16/23 03/17/23 03/17/23 18:59 06:59 18:59 Intake Total 1080 Output Total 1503 2 Balance -423 -2 Weight 53 kg Intake: Oral 1080 Output: Urine 1500 Stool 2 Urine/Stool Mix 3 Other: # Voids 1 1 # Bowel Movements 1 1 - Labs CBC & Chem 7: 03/17/23 07:19 03/17/23 07:19 Labs: Abnormal Lab Results - Last 24 Hours (Table) 03/16/23 03/17/23 03/17/23 Range/Units 08:19 07:19 07:19 WBC 11.8 H (3.8-10.6) k/uL RBC 3.28 L (3.80-5.40) m/uL Hgb 10.4 L (11.4-16.0) gm/dL Hct 31.8 L (34.0-46.0) % Neutrophils # 9.2 H (1.3-7.7) k/uL Potassium 3.2 L (3.5-5.1) mmol/L Chloride 109 H (98-107) mmol/L BUN 30 H 30 H (7-17) mg/dL Creatinine 2.35 H 2.33 H (0.52-1.04) mg/dL Glucose 133 H 101 H (74-99) mg/dL Calcium 8.0 L 8.1 L (8.4-10.2) mg/dL C-Reactive Protein 3.9 H (<1.0) mg/dL Total Protein 5.1 L (6.3-8.2) g/dL Albumin 2.3 L (3.5-5.0) g/dL Assessment and Plan Time with Patient: Less than 30
--- NOTE | 2023-03-17 16:22 | P.PN ---
Subjective Progress Note Date: 03/17/23 Follow-up for acute kidney injury. Denies any nausea vomiting diarrhea. Objective - Vital Signs Vital signs: Vital Signs Temp 98.8 F 03/17/23 14:10 Pulse 106 H 03/17/23 14:10 Resp 18 03/17/23 14:10 BP 118/69 03/17/23 14:10 Pulse Ox 99 03/17/23 14:10 FiO2 Intake & Output 03/16/23 03/17/23 03/17/23 18:59 06:59 18:59 Intake Total 1080 Output Total 1503 2 Balance -423 -2 Weight 53 kg Intake: Oral 1080 Output: Urine 1500 Stool 2 Urine/Stool Mix 3 Other: # Voids 1 1 # Bowel Movements 1 1 - Exam No acute distress S1-S2 heard Lungs clear Abdomen soft Edema - Labs CBC & Chem 7: 03/17/23 07:19 03/17/23 07:19 Labs: Abnormal Lab Results - Last 24 Hours (Table) 03/17/23 03/17/23 Range/Units 07:19 07:19 WBC 11.8 H (3.8-10.6) k/uL RBC 3.28 L (3.80-5.40) m/uL Hgb 10.4 L (11.4-16.0) gm/dL Hct 31.8 L (34.0-46.0) % Neutrophils # 9.2 H (1.3-7.7) k/uL Chloride 109 H (98-107) mmol/L BUN 30 H (7-17) mg/dL Creatinine 2.33 H (0.52-1.04) mg/dL Glucose 101 H (74-99) mg/dL Calcium 8.1 L (8.4-10.2) mg/dL C-Reactive Protein 3.9 H (<1.0) mg/dL Total Protein 5.1 L (6.3-8.2) g/dL Albumin 2.3 L (3.5-5.0) g/dL Assessment and Plan Assessment: #1 acute kidney injury secondary to septic/hemodynamic ATN. -Baseline creatinine 1.2 MG per DL #2 chronic kidney disease stage III secondary to nephrosclerosis #3 metabolic acidosis secondary to acute kidney injury #4 severe sepsis secondary to bowel perforation #5 A. fib with RVR Plan: #1 renal function stable #2 continue with diuretics for now #3 daily renal labs
--- NOTE | 2023-03-17 17:00 | P.PN ---
Subjective Progress Note Date: 03/17/23 Principal diagnosis: Perforated bowel and peritonitis Patient is a 87-year-old female with a past medical history difficult for CVA/TIA, hypertension and heart failure along with anxiety presenting to the hospital with abdominal pain apparently the patient recently did have a colonoscopy before her abdominal pain started patient was evaluated at the outside facility with the patient was noticed to have a perforated colon, patient was taken to the OR and status post right hemicolectomy and abdominal cultures.Patient did well due to A-fib with RVR for the patient was transferred to cardiology unit. On today's evaluation that is 03/17/2023, patient remains to be afebrile, the patient is breathing comfortably on room air, patient denies any chest pain shortness of breath or cough, the patient denies any nausea no vomiting, the patient has been tolerating her diet no abdominal pain and no diarrhea Patient white count is 11.8, creatinine is 2.33 Objective - Vital Signs Vital signs: Vital Signs Temp 98.8 F 03/17/23 14:10 Pulse 106 H 03/17/23 14:10 Resp 18 03/17/23 14:10 BP 118/69 03/17/23 14:10 Pulse Ox 99 03/17/23 14:10 FiO2 Intake & Output 03/16/23 03/17/23 03/17/23 18:59 06:59 18:59 Intake Total 1080 Output Total 1503 2 Balance -423 -2 Weight 53 kg Intake: Oral 1080 Output: Urine 1500 Stool 2 Urine/Stool Mix 3 Other: # Voids 1 1 # Bowel Movements 1 1 - Exam GENERAL DESCRIPTION: An alert female up in the chair in no distress RESPIRATORY SYSTEM: Unlabored breathing , decreased breath sounds at bases HEART: S1 S2 regular rate and rhythm , ABDOMEN: Soft , no tenderness EXTREMITIES: No edema feet - Labs CBC & Chem 7: 03/17/23 07:19 03/17/23 07:19 Labs: Abnormal Lab Results - Last 24 Hours (Table) 03/17/23 03/17/23 Range/Units 07:19 07:19 WBC 11.8 H (3.8-10.6) k/uL RBC 3.28 L (3.80-5.40) m/uL Hgb 10.4 L (11.4-16.0) gm/dL Hct 31.8 L (34.0-46.0) % Neutrophils # 9.2 H (1.3-7.7) k/uL Chloride 109 H (98-107) mmol/L BUN 30 H (7-17) mg/dL Creatinine 2.33 H (0.52-1.04) mg/dL Glucose 101 H (74-99) mg/dL Calcium 8.1 L (8.4-10.2) mg/dL C-Reactive Protein 3.9 H (<1.0) mg/dL Total Protein 5.1 L (6.3-8.2) g/dL Albumin 2.3 L (3.5-5.0) g/dL Assessment and Plan (1) Peritonitis Current Visit: Yes Status: Acute Code(s): K65.9 - PERITONITIS, UNSPECIFIED SNOMED Code(s): 73639183 (2) Bowel perforation Current Visit: Yes Status: Acute Code(s): K63.1 - PERFORATION OF INTESTINE (NONTRAUMATIC) SNOMED Code(s): 31275457 Plan: 1patient presented hospital abdominal pain has been diagnosed with perforated colon patient with a secondary peritonitis in this patient who is status post laparotomy and right hemicolectomy we will need to cover for the polymicrobial enteric michael usually associated with colon perforation, culture has been obtained, currently growing Klebsiella drug-resistant Morganella and anaerobes. 2patient remains to be afebrile and white count was normal, we will continue the patient on Zosyn and monitor clinical course closely Dictation was produced using [employer] dictation software. please excuse any grammatical, word or spelling errors. Time with Patient: Less than 30
[2023-03-18] MEDS: METOPROLOL SUCCINATE (ER) 25 MG TAB.ER.24H PO SCH (07:43)
[2023-03-18] MEDS: PROPAFENONE 150 MG TAB PO SCH ×2 (07:43→20:47)
[2023-03-18] MEDS: PRAVASTATIN SODIUM 80 MG TAB PO SCH (07:43)
[2023-03-18] MEDS: busPIRone HCl 5 MG TAB PO SCH ×2 (07:43→20:47)
[2023-03-18] MEDS: TOPIRAMATE 25 MG TAB PO SCH (07:43)
[2023-03-18] MEDS: PIPERACILLIN-TAZOBACTAM 3.375 GM in SODIUM CHLORIDE 0.9% 100 ML IVPB SCH (07:44)
[2023-03-18] MEDS: PANTOPRAZOLE 40 MG/10 ML VIAL IV SCH (07:44)
[2023-03-18] MEDS: APIXABAN 2.5 MG TABLET PO SCH ×2 (07:44→20:48)
[2023-03-18] MEDS: FUROSEMIDE 10 MG/ML 4 ML VIAL IV SCH ×2 (07:44→20:48)
[2023-03-18 07:45] LABS: Basophils % (A) 0 %; Eosinophils # (A) 0.2 k/uL (0-0.7); Eosinophils % (A) 2 %; HCT 27.1 % (34.0-46.0); Lymphocytes % (A) 10 %; MCH 32.3 pg (25.0-35.0); MCV 97.9 fL (80.0-100.0); Monocytes # (A) 0.7 k/uL (0-1.0); Monocytes % (A) 7 %; Neutrophils # (A) 7.8 k/uL (1.3-7.7); Neutrophils % (A) 79 %; Platelet Count 359 k/uL (150-450); RBC 2.77 m/uL (3.80-5.40); RDW 14.1 % (11.5-15.5); WBC 9.9 k/uL (3.8-10.6)
[2023-03-18 08:26] LABS: African American GFR (CKD) 21 (>60 ml/min/1.73 sqM); Blood Urea Nitrogen 31 mg/dL (7-17); Calcium 7.7 mg/dL (8.4-10.2); Carbon Dioxide 26 mmol/L (22-30); Glucose 92 mg/dL (74-99); Non-African American GFR(CKD) 18 (>60 ml/min/1.73 sqM); Potassium 3.3 mmol/L (3.5-5.1); Sodium 137 mmol/L (137-145)
[2023-03-18 08:32] LABS: Anion Gap 4 mmol/L; Chloride 107 mmol/L (98-107)
[2023-03-18] MEDS ORDERED: POTASSIUM CHLORIDE ER 20 MEQ TAB.ER PO STA (08:42)
[2023-03-18] MEDS: LOPERAMIDE 2 MG CAP PO PRN ×2 (08:49→20:47)
--- NOTE | 2023-03-18 09:53 | P.PN ---
Subjective Progress Note Date: 03/18/23 Principal diagnosis: Colon perforation Patient with increasing diarrhea that started yesterday. Mildly tachycardic. White blood cell count is normal today. No fevers. Denies abdominal pain. Says she feels weak. Objective - Vital Signs Vital signs: Vital Signs Temp 98.8 F 03/18/23 07:10 Pulse 110 H 03/18/23 07:10 Resp 17 03/18/23 07:10 BP 121/73 03/18/23 07:10 Pulse Ox 97 03/18/23 07:10 FiO2 Intake & Output 03/17/23 03/18/23 03/18/23 18:59 06:59 18:59 Output Total 2 Balance -2 Weight 53.5 kg Output: Stool 2 Other: # Voids 1 1 1 # Bowel Movements 1 1 1 - Exam Abdomen: Soft, nondistended, incision clean and dry, drain serosanguineous, nontender - Labs CBC & Chem 7: 03/18/23 06:57 03/18/23 06:57 Labs: Abnormal Lab Results - Last 24 Hours (Table) 03/18/23 03/18/23 Range/Units 06:57 06:57 RBC 2.77 L (3.80-5.40) m/uL Hgb 9.0 L (11.4-16.0) gm/dL Hct 27.1 L (34.0-46.0) % Neutrophils # 7.8 H (1.3-7.7) k/uL Potassium 3.3 L (3.5-5.1) mmol/L BUN 31 H (7-17) mg/dL Creatinine 2.38 H (0.52-1.04) mg/dL Calcium 7.7 L (8.4-10.2) mg/dL Assessment and Plan (1) Bowel perforation Narrative/Plan: He 7-year-old female with diarrhea now after recent right colectomy. Patient with mild tachycardia. Imodium started today after C. diff was noted to be negative. Will order CT abdomen and pelvis as follow-up to evaluate for any intra-abdominal issues. Current Visit: Yes Status: Acute Code(s): K63.1 - PERFORATION OF INTESTINE (NONTRAUMATIC) SNOMED Code(s): 99545466
[2023-03-18] MEDS: IOPAMIDOL CONTRAST (ORAL USE) VIAL PO PRN ×2 (10:00→11:20)
--- NOTE | 2023-03-18 12:33 | CT ---
EXAMINATION TYPE: CT abdomen pelvis wo con DATE OF EXAM: 03/18/2023 COMPARISON: None HISTORY: Follow up of post perforation CT DLP: 426.5 mGycm Examination of the solid is limited given the lack of contrast. GI contrast is utilized. FINDINGS: LUNG BASES: No evidence for nodule. No evidence for infiltrate. Small left basilar pleural effusion. LIVER/GB: The gallbladder is surgically absent. No space-occupying hepatic lesion. PANCREAS: No pancreatic mass identified. No inflammatory process seen. SPLEEN: No evidence for splenomegaly. No intrasplenic lesions seen. ADRENALS: No adrenal nodules identified. No evidence for thickening. KIDNEYS: No evidence for renal mass. No nephrolithiasis. No hydronephrosis. BOWEL: Postsurgical changes about the cecal region. Mild surrounding strandy attenuation postoperativ e nature. No evidence for leak or obstruction. No evidence of bowel obstruction. No inflammatory proc ess. No residual clear. No evidence for abscess. Scattered bowel wall thickening involving the small bowel as well as portions of the colon Lymph nodes: No evidence for adenopathy greater than 1 cm. Abdominal aorta: Atheromatous changes seen. No evidence for aneurysm. Genital organs: No significant abnormality. Other: Midline skin marybeth with underlying drain. Small amount of ascites within the upper abdomen a nd pelvis with the paracolic gutters. IMPRESSION: 1. No evidence for residual free air or abscess. Postoperative changes about the cecal region with mi ld surrounding fatty attenuation which may be postsurgical in nature. I do not see evidence for leak. 2. Nonspecific bowel wall thickening involving the jejunal loops as well as scattered about the colon . Correlate for nonspecific enterocolitis. 3. Ascites and small left pleural effusion.
--- NOTE | 2023-03-18 12:47 | P.PN ---
Subjective Progress Note Date: 03/18/23 Follow-up for acute kidney injury. Denies any nausea vomiting diarrhea. Objective - Vital Signs Vital signs: Vital Signs Temp 98.8 F 03/18/23 07:10 Pulse 110 H 03/18/23 07:10 Resp 17 03/18/23 07:10 BP 121/73 03/18/23 07:10 Pulse Ox 97 03/18/23 07:10 FiO2 Intake & Output 03/17/23 03/18/23 03/18/23 18:59 06:59 18:59 Output Total 2 Balance -2 Weight 53.5 kg Output: Stool 2 Other: # Voids 1 1 2 # Bowel Movements 1 1 2 - Exam No acute distress S1-S2 heard Lungs clear Abdomen soft Edema - Labs CBC & Chem 7: 03/18/23 06:57 03/18/23 06:57 Labs: Abnormal Lab Results - Last 24 Hours (Table) 03/18/23 03/18/23 Range/Units 06:57 06:57 RBC 2.77 L (3.80-5.40) m/uL Hgb 9.0 L (11.4-16.0) gm/dL Hct 27.1 L (34.0-46.0) % Neutrophils # 7.8 H (1.3-7.7) k/uL Potassium 3.3 L (3.5-5.1) mmol/L BUN 31 H (7-17) mg/dL Creatinine 2.38 H (0.52-1.04) mg/dL Calcium 7.7 L (8.4-10.2) mg/dL Assessment and Plan Assessment: #1 acute kidney injury secondary to septic/hemodynamic ATN. -Baseline creatinine 1.2 MG per DL #2 chronic kidney disease stage III secondary to nephrosclerosis #3 metabolic acidosis secondary to acute kidney injury #4 severe sepsis secondary to bowel perforation #5 A. fib with RVR Plan: #1 renal function stable #2 continue with diuretics for now #3 daily renal labs
--- NOTE | 2023-03-18 14:42 | P.PN ---
Subjective Progress Note Date: 03/18/23 Patient is evaluated today resting in bed no acute complaints. Patient is postoperative day #4 exploratory laparotomy with right hemicolectomy for colon perforation. Reports abdominal pain is well-controlled per patient currently receiving IV Dilaudid and tramadol. Patient remains on IV Zosyn, white count today down to 10.7. Patient has had a couple loose bowel movements noted that she is on full liquid diet. She is passing gas. Midline incision is clean and dry. SURESH drain in place with minimal output serosanguineous in color. Creatinine has trended upwards 2.31 today, renal ultrasound requested. Nephrology will also be consulted. Patient is drowsy during the day family feels she may be slightly confused this is likely medication effect. Heart rate remains controlled. 03/13/2023 Patient is evaluated today sitting up in bed eating regular diet. Postoperative day #5 right hemicolectomy. Patient is having bowel movements. Mentation has improved slightly today. Family at bedside feels she has improved as well. Creatinine remains elevated 2.45 today, and patient remains on bicarb gtt. Renal ultrasound shows no obstructive uropathy. Wound cultures showing klebsiella and morganella as well as anaerobic gram neg bacilli. Patient remains on IV zosyn. Patient is being followed closely by PT/OT remains a moderate assist to get to the edge of bed and will require rehab on discharge. 03/14/2023 Patient is postoperative day #6 right hemicolectomy. She reports minimal abdominal pain and is tolerating a regular diet. She is having bowel movements. Patient is more awake and alert. She remains on a bicarb drip and creatinine has improved down to 2.17. Patient does complain of some dysphasia and also that she is holding food in the sides of her mouth. Speech therapy was consulte d for evaluation of this. Microsensitivities are available for discharge antibiotics ID is following closely. Patient needs insurance authorization for discharge to subacute rehab and this has been started. Hemodynamically she is stable. 03/15/2023 Patient is postoperative day #7 right hemicolectomy. Patient has minimal abominal pain main complaint today is difficulty swallowing holding food bolus in her mouth. Speech therapy evaluated the patient and recommending dysphagia level 3 chopped diet due to ill fitting dentures and tongue and jaw tremors. Patient needs no further skilled ST services. Creatinine today up to 2.3 and IV lasix given x 1, IV bicarbonate has been stopped. Patient is pending insurance authorization for DC to subacute rehab. Patient has 3 isolates from the abdomen culture and due to drug interactions with sotolol, ID recommending 1 week of IV antibiotics on discharge. 03/16/2023 Patient is postoperative day #8 hemicolectomy for perforated colon. She remains on IV antibiotics and cultures are showing Klebsiella and Morganella with anaerobic gram-negative bacilli. For now patient continues on IV Zosyn. Recommending a course of IV antibiotics on discharge from weeks duration. Patient is being followed by nephrology IV fluids have been stopped the patient is being given IV Lasix creatinine is up to 25 today patient does have some lower extremity peripheral edema. Potassium is also 3.2 today. 03/17/2023 Patient evaluated today on the medical floor she is up in the chair. She is postoperative day #9 hemicolectomy. She is having bowel movements she is not reporting much abdominal pain. Patient remains on IV antibiotics with recommendations from ID for outpatient IV antibiotics 1 week on discharge. Patient is being followed by nephrology and continues IV Lasix twice a day Recommending to bladder scan patient monitor for any urinary retention with postvoid residuals. Labs today show a creatinine of 2.33, potassium has improved to 3.6. Her white count is stable at 11.8. 03/18/2023 Patient is evaluated today sitting up in the chair she is postoperative day #10 hemicolectomy. Patient is having bowel movements however she continues with multiple episodes of loose diarrhea and C. diff was negative. She continues on IV antibiotics for the surgical wound cultures. General surgery recommending an abdominal pelvis CT with contrast this was completed and is showing no evidence for residual free air or abscess. There are postoperative changes about the cecal region with mild surrounding fatty attenuation which may be postsurgical in nature I do not see evidence for leak. Nonspecific bowel wall thickening involving the jejunal loops as well as scattered about the colon correlate for nonspecific enterocolitis. There is ascites and a small left pleural effusion. Patient remains IV Lasix with a creatinine of 2.38, sodium of 137 and potassium of 3.3. Her white count is normalized. Hemodynamically she is stable. Review of Systems Constitutional: Denied any fatigue denied any fever. Cardio vascular: denied any chest pain, palpitations Gastrointestinal: denied any nausea, vomiting, diarrhea Pulmonary: Denied any shortness of breath cough Neurologic denied any new focal deficits All inpatient medications were reviewed and appropriate changes in these medications as dictated in the interval history and assessment and plan. PHYSICAL EXAMINATION: GENERAL: The patient is alert and oriented x2 to 3, not in any acute distress. Well developed, well nourished. HEENT: Pupils are round and equally reacting to light. EOMI. No scleral icterus. No conjunctival pallor. Normocephalic, atraumatic. No pharyngeal erythema. No thyromegaly. CARDIOVASCULAR: S1 and S2 present. No murmurs, rubs, or gallops. PULMONARY: Chest is clear to auscultation, no wheezing or crackles. ABDOMEN: Soft, nontender, nondistended, normoactive bowel sounds. No palpable organomegaly. Post surgical abdomen with midline incision. SURESH drain in place MUSCULOSKELETAL: No joint swelling or deformity. EXTREMITIES: No cyanosis, clubbing, or pedal edema. NEUROLOGICAL: Gross neurological examination did not reveal any focal deficits. Diffuse weakness. SKIN: No rashes. Assessment Perforated Colon status post exploratory laparotomy with right colectomy with end to end anastomosis Sepsis secondary to above Altered mental status due to metabolic encephalopathy from kidney injury and sepsis Volume overload Diarrhea with abdominal pelvis CT showing nonspecific enterocolitis C. diff was negative Acute kidney injury due to ATN and hypotension Chronic kidney disease stage IIIA Paroxysmal atrial fibrillation with rapid ventricular rate heart rate is now improved patient is anticoagulated History TIA Hypertension GI Prophylaxis DVT prophylaxis Full code Plan Speech therapy consultation diet downgraded to dysphagia 3 chopped Continue with antibiotics and ID recommending 1 week IV antibiotics on discharge thru midline which has been ordered. Nephrology following, added IV Lasix twice a day recommend bladder scare monitoring of PVR/urinary retention and strict intake and output Recommend to discontinue Ativan at bedtime and avoid the use of narcotics if possible Patient requires insurance authorization for DC to subacute rehab which has been started F/U BMP in the AM. Possible discharge to subacute rehab in the next 24 hours. The impression and plan of care has been dictated by Tomasa Zepeda, Nurse Practitioner as directed. Dr. Sarah MD I have performed a history and physical examination and medical decision making of this patient, discussed the same with the dictator, and agree with the dictators assessment and plan as written, documented as a scribe. Based on total visit time, I have performed more than 50% of this visit. Objective - Vital Signs Vital signs: Vital Signs Temp 98.8 F 03/18/23 07:10 Pulse 110 H 03/18/23 07:10 Resp 17 03/18/23 07:10 BP 121/73 03/18/23 07:10 Pulse Ox 97 03/18/23 07:10 FiO2 Intake & Output 03/17/23 03/18/23 03/18/23 18:59 06:59 18:59 Output Total 2 Balance -2 Weight 53.5 kg Output: Stool 2 Other: # Voids 1 1 3 # Bowel Movements 1 1 3 - Labs CBC & Chem 7: 03/18/23 06:57 03/18/23 06:57 Labs: Abnormal Lab Results - Last 24 Hours (Table) 03/18/23 03/18/23 Range/Units 06:57 06:57 RBC 2.77 L (3.80-5.40) m/uL Hgb 9.0 L (11.4-16.0) gm/dL Hct 27.1 L (34.0-46.0) % Neutrophils # 7.8 H (1.3-7.7) k/uL Potassium 3.3 L (3.5-5.1) mmol/L BUN 31 H (7-17) mg/dL Creatinine 2.38 H (0.52-1.04) mg/dL Calcium 7.7 L (8.4-10.2) mg/dL Assessment and Plan Time with Patient: Less than 30
--- NOTE | 2023-03-18 16:03 | P.PN ---
Subjective Progress Note Date: 03/18/23 Principal diagnosis: Perforated bowel and peritonitis Patient is a 87-year-old female with a past medical history difficult for CVA/TIA, hypertension and heart failure along with anxiety presenting to the hospital with abdominal pain apparently the patient recently did have a colonoscopy before her abdominal pain started patient was evaluated at the outside facility with the patient was noticed to have a perforated colon, patient was taken to the OR and status post right hemicolectomy and abdominal cultures.Patient did well due to A-fib with RVR for the patient was transferred to cardiology unit. On today's evaluation that is 03/18/2023, the patient remains to be afebrile, the patient is breathing comfortably denies any chest pain shortness of breath or cough patient did have diarrhea per the nursing staff. Patient white count normalized to 9.9, creatinine is 2.38 stool for C. difficile is negative patient did have a CT of abdominal pelvis no evidence for residual free air or abscess postoperative changes about the cecal region with mild surrounding fatty continuation nonspecific bowel wall thickening question of enterocolitis Objective - Vital Signs Vital signs: Vital Signs Temp 98.0 F 03/18/23 13:44 Pulse 86 03/18/23 13:44 Resp 17 03/18/23 13:44 BP 125/72 03/18/23 13:44 Pulse Ox 99 03/18/23 13:44 FiO2 Intake & Output 03/17/23 03/18/23 03/18/23 18:59 06:59 18:59 Output Total 2 Balance -2 Weight 53.5 kg Output: Stool 2 Other: # Voids 1 1 1 # Bowel Movements 1 1 1 - Exam GENERAL DESCRIPTION: An alert female up in the chair in no distress RESPIRATORY SYSTEM: Unlabored breathing , decreased breath sounds at bases HEART: S1 S2 regular rate and rhythm , ABDOMEN: Soft , no tenderness EXTREMITIES: No edema feet - Labs CBC & Chem 7: 03/18/23 06:57 03/18/23 06:57 Labs: Abnormal Lab Results - Last 24 Hours (Table) 03/18/23 03/18/23 Range/Units 06:57 06:57 RBC 2.77 L (3.80-5.40) m/uL Hgb 9.0 L (11.4-16.0) gm/dL Hct 27.1 L (34.0-46.0) % Neutrophils # 7.8 H (1.3-7.7) k/uL Potassium 3.3 L (3.5-5.1) mmol/L BUN 31 H (7-17) mg/dL Creatinine 2.38 H (0.52-1.04) mg/dL Calcium 7.7 L (8.4-10.2) mg/dL Assessment and Plan (1) Peritonitis Current Visit: Yes Status: Acute Code(s): K65.9 - PERITONITIS, UNSPECIFIED SNOMED Code(s): 20588862 (2) Bowel perforation Current Visit: Yes Status: Acute Code(s): K63.1 - PERFORATION OF INTESTINE (NONTRAUMATIC) SNOMED Code(s): 99098021 Plan: 1patient presented hospital abdominal pain has been diagnosed with perforated colon patient with a secondary peritonitis in this patient who is status post laparotomy and right hemicolectomy we will need to cover for the polymicrobial enteric michael usually associated with colon perforation, culture has been obtained, currently growing Klebsiella drug-resistant Morganella and anaerobes. 2patient remains to be afebrile white count normal did have significant diarrhea could be related to Zosyn which should be discontinued we will switch her to cefepime and Flagyl and see clinical response Dictation was produced using [employer] dictation software. please excuse any grammatical, word or spelling errors. Time with Patient: Less than 30
[2023-03-18] MEDS: CEFEPIME 1 GM in SODIUM CHLORIDE 0.9% 50 ML IVPB SCH (20:46)
[2023-03-18] MEDS: metroNIDAZOLE 500 MG TAB PO SCH (20:47)
[2023-03-19] MEDS: LOPERAMIDE 2 MG CAP PO PRN (05:20)
[2023-03-19] MEDS: APIXABAN 2.5 MG TABLET PO SCH ×2 (08:39→21:39)
[2023-03-19] MEDS: busPIRone HCl 5 MG TAB PO SCH ×2 (08:39→21:39)
[2023-03-19] MEDS: CEFEPIME 1 GM in SODIUM CHLORIDE 0.9% 50 ML IVPB SCH (08:39)
[2023-03-19] MEDS: PANTOPRAZOLE 40 MG/10 ML VIAL IV SCH (08:40)
[2023-03-19] MEDS: FUROSEMIDE 10 MG/ML 4 ML VIAL IV SCH ×2 (08:40→21:39)
[2023-03-19] MEDS: POTASSIUM CHLORIDE ER 20 MEQ TAB.ER PO SCH (08:40)
[2023-03-19] MEDS: metroNIDAZOLE 500 MG TAB PO SCH (08:40)
[2023-03-19] MEDS: METOPROLOL SUCCINATE (ER) 25 MG TAB.ER.24H PO SCH (08:40)
[2023-03-19] MEDS: PRAVASTATIN SODIUM 80 MG TAB PO SCH (08:40)
[2023-03-19] MEDS: PROPAFENONE 150 MG TAB PO SCH ×2 (08:41→21:39)
[2023-03-19] MEDS: TOPIRAMATE 25 MG TAB PO SCH (08:41)
--- NOTE | 2023-03-19 12:35 | P.PN ---
Subjective patient is seen for follow-up for acute kidney injury. Renal function has been fairly stable. Currently being diuresed. no complaints today. Objective - Vital Signs Vital signs: Vital Signs Temp 98.4 F 03/19/23 08:00 Pulse 103 H 03/19/23 08:00 Resp 16 03/19/23 08:00 BP 155/73 03/19/23 08:00 Pulse Ox 93 L 03/19/23 08:00 FiO2 Intake & Output 03/18/23 03/19/23 03/19/23 18:59 06:59 18:59 Output Total 42 Balance -42 Weight 50 kg Output: Drainage 40 Lower Abdomen 40 Stool 2 Other: Voiding Method Bedside Commode # Voids 1 5 2 # Bowel Movements 1 1 2 - Exam patient is awake, comfortable, no acute distress [place] at Examination of the heart S1 and S2 Examination of the lungs decreased breath sounds at the bases Abdomen is soft nontender Examination of lower extremity shows bilateral edema. Both legs are wrapped. ASSISTANT CASE MANAGER exam grossly intact - Labs CBC & Chem 7: 03/18/23 06:57 03/18/23 06:57 Assessment and Plan Assessment: #1 acute kidney injury secondary to septic/hemodynamic ATN.renal function staying stable with creatinine at about 2.3 mg/dL -Baseline creatinine 1.2 MG per DL #2 chronic kidney disease stage III secondary to nephrosclerosis #3 metabolic acidosis secondary to acute kidney injury #4 severe sepsis secondary to bowel perforation #5 A. fib with RVR Plan: can switch to oral diuretics in a.m. Repeat labs in a.m.
--- NOTE | 2023-03-19 12:55 | P.PN ---
Subjective Progress Note Date: 03/19/23 Patient is evaluated today resting in bed no acute complaints. Patient is postoperative day #4 exploratory laparotomy with right hemicolectomy for colon perforation. Reports abdominal pain is well-controlled per patient currently receiving IV Dilaudid and tramadol. Patient remains on IV Zosyn, white count today down to 10.7. Patient has had a couple loose bowel movements noted that she is on full liquid diet. She is passing gas. Midline incision is clean and dry. SURESH drain in place with minimal output serosanguineous in color. Creatinine has trended upwards 2.31 today, renal ultrasound requested. Nephrology will also be consulted. Patient is drowsy during the day family feels she may be slightly confused this is likely medication effect. Heart rate remains controlled. 03/13/2023 Patient is evaluated today sitting up in bed eating regular diet. Postoperative day #5 right hemicolectomy. Patient is having bowel movements. Mentation has improved slightly today. Family at bedside feels she has improved as well. Creatinine remains elevated 2.45 today, and patient remains on bicarb gtt. Renal ultrasound shows no obstructive uropathy. Wound cultures showing klebsiella and morganella as well as anaerobic gram neg bacilli. Patient remains on IV zosyn. Patient is being followed closely by PT/OT remains a moderate assist to get to the edge of bed and will require rehab on discharge. 03/14/2023 Patient is postoperative day #6 right hemicolectomy. She reports minimal abdominal pain and is tolerating a regular diet. She is having bowel movements. Patient is more awake and alert. She remains on a bicarb drip and creatinine has improved down to 2.17. Patient does complain of some dysphasia and also that she is holding food in the sides of her mouth. Speech therapy was consulte d for evaluation of this. Microsensitivities are available for discharge antibiotics ID is following closely. Patient needs insurance authorization for discharge to subacute rehab and this has been started. Hemodynamically she is stable. 03/15/2023 Patient is postoperative day #7 right hemicolectomy. Patient has minimal abominal pain main complaint today is difficulty swallowing holding food bolus in her mouth. Speech therapy evaluated the patient and recommending dysphagia level 3 chopped diet due to ill fitting dentures and tongue and jaw tremors. Patient needs no further skilled ST services. Creatinine today up to 2.3 and IV lasix given x 1, IV bicarbonate has been stopped. Patient is pending insurance authorization for DC to subacute rehab. Patient has 3 isolates from the abdomen culture and due to drug interactions with sotolol, ID recommending 1 week of IV antibiotics on discharge. 03/16/2023 Patient is postoperative day #8 hemicolectomy for perforated colon. She remains on IV antibiotics and cultures are showing Klebsiella and Morganella with anaerobic gram-negative bacilli. For now patient continues on IV Zosyn. Recommending a course of IV antibiotics on discharge from weeks duration. Patient is being followed by nephrology IV fluids have been stopped the patient is being given IV Lasix creatinine is up to 25 today patient does have some lower extremity peripheral edema. Potassium is also 3.2 today. 03/17/2023 Patient evaluated today on the medical floor she is up in the chair. She is postoperative day #9 hemicolectomy. She is having bowel movements she is not reporting much abdominal pain. Patient remains on IV antibiotics with recommendations from ID for outpatient IV antibiotics 1 week on discharge. Patient is being followed by nephrology and continues IV Lasix twice a day Recommending to bladder scan patient monitor for any urinary retention with postvoid residuals. Labs today show a creatinine of 2.33, potassium has improved to 3.6. Her white count is stable at 11.8. 03/18/2023 Patient is evaluated today sitting up in the chair she is postoperative day #10 hemicolectomy. Patient is having bowel movements however she continues with multiple episodes of loose diarrhea and C. diff was negative. She continues on IV antibiotics for the surgical wound cultures. General surgery recommending an abdominal pelvis CT with contrast this was completed and is showing no evidence for residual free air or abscess. There are postoperative changes about the cecal region with mild surrounding fatty attenuation which may be postsurgical in nature I do not see evidence for leak. Nonspecific bowel wall thickening involving the jejunal loops as well as scattered about the colon correlate for nonspecific enterocolitis. There is ascites and a small left pleural effusion. Patient remains IV Lasix with a creatinine of 2.38, sodium of 137 and potassium of 3.3. Her white count is normalized. Hemodynamically she is stable. 03/19/2023 Patient is evaluated today she is currently postoperative day #11 hemicolectomy due to perforated sigmoid colon. She is continued to have multiple loose bowel movements overnight and into today. C. diff is negative. CT showed enterocolitis. Remains antibiotics in the form of IV cefepime and by mouth Flagyl. Patient is receiving antidiarrheals Imodium and can add Questran. Nephrology following patient remains on IV diuretics and will switch to oral the morning. Labs from today are pending. Review of Systems Constitutional: Denied any fatigue denied any fever. Cardio vascular: denied any chest pain, palpitations Gastrointestinal: denied any nausea, vomiting. Tolerating regular diet. Continues with multiple episodes of loose stool. Pulmonary: Denied any shortness of breath cough Neurologic denied any new focal deficits All inpatient medications were reviewed and appropriate changes in these medications as dictated in the interval history and assessment and plan. PHYSICAL EXAMINATION: GENERAL: The patient is alert and oriented x2 to 3, not in any acute distress. Well developed, well nourished. HEENT: Pupils are round and equally reacting to light. EOMI. No scleral icterus. No conjunctival pallor. Normocephalic, atraumatic. No pharyngeal erythema. No thyromegaly. CARDIOVASCULAR: S1 and S2 present. No murmurs, rubs, or gallops. PULMONARY: Chest is clear to auscultation, no wheezing or crackles. ABDOMEN: Soft, nontender, nondistended, normoactive bowel sounds. No palpable organomegaly. Post surgical abdomen with midline incision. SURESH drain in place MUSCULOSKELETAL: No joint swelling or deformity. EXTREMITIES: No cyanosis, clubbing, or pedal edema. NEUROLOGICAL: Gross neurological examination did not reveal any focal deficits. Diffuse weakness. SKIN: No rashes. Assessment Perforated Colon status post exploratory laparotomy with right colectomy with end to end anastomosis Sepsis secondary to above Altered mental status due to metabolic encephalopathy from kidney injury and sepsis resolved Volume overload Diarrhea with abdominal pelvis CT showing nonspecific enterocolitis C. diff was negative Acute kidney injury due to ATN and hypotension Chronic kidney disease stage IIIA Paroxysmal atrial fibrillation with rapid ventricular rate heart rate is now improved patient is anticoagulated History TIA Hypertension GI Prophylaxis DVT prophylaxis Full code Plan Speech therapy consultation diet downgraded to dysphagia 3 chopped Continue with antibiotics and ID recommendations, changed to IV cefepime and PO flagyl due to the loose stool. Nephrology following, remains on IV Lasix twice a day recommend bladder scare monitoring of PVR/urinary retention and strict intake and output Patient will be transitioned to oral lasix in the AM. Patient requires insurance authorization for DC to subacute rehab Recommend to continue working with PT and OT. F/U BMP in the AM. Possible discharge to subacute rehab in the next 24 hours. The impression and plan of care has been dictated by Nurse Darion Prac titioner as directed. Dr. Sarah MD I have performed a history and physical examination and medical decision making of this patient, discussed the same with the dictator, and agree with the dictators assessment and plan as written, documented as a scribe. Based on total visit time, I have performed more than 50% of this visit. Objective - Vital Signs Vital signs: Vital Signs Temp 98.4 F 03/19/23 08:00 Pulse 103 H 03/19/23 08:00 Resp 16 03/19/23 08:00 BP 155/73 03/19/23 08:00 Pulse Ox 93 L 03/19/23 08:00 FiO2 Intake & Output 03/18/23 03/19/23 03/19/23 18:59 06:59 18:59 Output Total 42 Balance -42 Weight 50 kg Output: Drainage 40 Lower Abdomen 40 Stool 2 Other: Voiding Method Bedside Commode # Voids 1 5 2 # Bowel Movements 1 1 2 - Labs CBC & Chem 7: 03/18/23 06:57 03/18/23 06:57 Assessment and Plan Time with Patient: Less than 30
--- NOTE | 2023-03-19 13:24 | P.PN ---
Subjective Progress Note Date: 03/19/23 CHIEF COMPLAINT: Colon perforation after outpatient colonoscopy HISTORY OF PRESENT ILLNESS: Patient is status post exploratory laparotomy with right colectomy on 03/08/2023. Patient reports her pain is controlled. Patient reports that her diarrhea is decreasing. Denies any nausea or vomiting. Computed tomography scan no evidence for residual free air or abscess. Postoperative changes about the cecal region with mild surrounding fatty attenuation which may be surgical in nature. Denies any evidence for leak. Nonspecific bowel wall thickening involving the jejunal loops as well as scattered about the colon. Correlate for the nonspecific enterocolitis. Afebrile. WBC 9.9 patient is on Imodium and Questran for diarrhea. Currently on IV Lasix per nephrology. PHYSICAL EXAM: VITAL SIGNS: Reviewed. GENERAL: Well-developed in no acute distress. ABDOMEN: Soft. Nondistended. nontender. Incisional dressing clean dry and intact. ASSESSMENT: 1. Colon perforation status post exploratory laparotomy with right colectomy 2. Enterocolitis PLAN: -Continue ground diet -Encourage patient to ambulate -Encourage patient to use incentive spirometer -DVT prophylaxis Eliquis -Patient will need ECF at discharge Physician Clinical Data Coordinator note has been reviewed by physician. Signing provider agrees with the documented findings, assessment, and plan of care. I have personally seen and examined the patient, reviewed the CHANNEL SALES DIRECTOR /PAs history, exam and MDM and agree with the assessment and plan as written. Based on total visit time, I have performed more than 50% of the visit. As above: Patient feels better today. Diarrhea improved. CAT scan reviewed with patient. Some ascites present. No abdominal pain. No evidence of anastomotic leak. Continue diet. Probable discharge to ECF tomorrow. Objective - Vital Signs Vital signs: Vital Signs Temp 98.4 F 03/19/23 08:00 Pulse 103 H 03/19/23 08:00 Resp 16 03/19/23 08:00 BP 155/73 03/19/23 08:00 Pulse Ox 93 L 03/19/23 08:00 FiO2 Intake & Output 03/18/23 03/19/23 03/19/23 18:59 06:59 18:59 Output Total 42 Balance -42 Weight 50 kg Output: Drainage 40 Lower Abdomen 40 Stool 2 Other: Voiding Method Bedside Commode # Voids 1 5 2 # Bowel Movements 1 1 2 - Labs CBC & Chem 7: 03/18/23 06:57 08/27/23 06:57
[2023-03-19 13:40] LABS: BUN/Creat Ratio 14.04 Ratio (12.00-20.00); Blood Urea Nitrogen 32.3 mg/dL (9.0-27.0); Calcium 8.2 mg/dL (8.7-10.3); Carbon Dioxide 21.4 mmol/L (21.6-31.8); Chloride 107 mmol/L (96-109); Glucose 96 mg/dL (70-110); Potassium 4.6 mmol/L (3.5-5.5); Sodium 140 mmol/L (135-145)
[2023-03-19 14:35] VITALS: BMI 22.2
[2023-03-19] MEDS: traMADol 50 MG TAB PO PRN (18:01)
[2023-03-19] MEDS: CHOLESTYRAMINE (WITH SUGAR) 4 GM PACKET PO SCH (21:38)
[2023-03-20 07:14] LABS: Basophils % (A) 0 %; Eosinophils # (A) 0.2 k/uL (0-0.7); Eosinophils % (A) 2 %; Lymphocytes # (A) 0.9 k/uL (1.0-4.8); Lymphocytes % (A) 11 %; MCH 31.7 pg (25.0-35.0); MCHC 32.3 g/dL (31.0-37.0); MCV 98.3 fL (80.0-100.0); Mean Platelet Volume 7.9; Monocytes # (A) 0.7 k/uL (0-1.0); Monocytes % (A) 9 %; Neutrophils # (A) 5.8 k/uL (1.3-7.7); Neutrophils % (A) 76 %; Platelet Count 520 k/uL (150-450); RBC 2.85 m/uL (3.80-5.40); RDW 13.8 % (11.5-15.5); WBC 7.7 k/uL (3.8-10.6)
[2023-03-20 07:24] LABS: African American GFR (CKD) 23 (>60 ml/min/1.73 sqM); Anion Gap 6 mmol/L; Blood Urea Nitrogen 34 mg/dL (7-17); Calcium 8.2 mg/dL (8.4-10.2); Carbon Dioxide 25 mmol/L (22-30); Chloride 103 mmol/L (98-107); Glucose 93 mg/dL (74-99); Magnesium 1.8 mg/dL (1.6-2.3); Non-African American GFR(CKD) 20 (>60 ml/min/1.73 sqM); Potassium 3.9 mmol/L (3.5-5.1); Sodium 134 mmol/L (137-145)
[2023-03-20] MEDS: busPIRone HCl 5 MG TAB PO SCH ×2 (08:34→21:43)
[2023-03-20] MEDS: APIXABAN 2.5 MG TABLET PO SCH ×2 (08:34→21:43)
[2023-03-20] MEDS: FUROSEMIDE 10 MG/ML 4 ML VIAL IV SCH ×2 (08:34→21:44)
[2023-03-20] MEDS: PROPAFENONE 150 MG TAB PO SCH ×2 (08:35→21:44)
[2023-03-20] MEDS: METOPROLOL SUCCINATE (ER) 25 MG TAB.ER.24H PO SCH (08:35)
[2023-03-20] MEDS: PANTOPRAZOLE 40 MG/10 ML VIAL IV SCH (08:35)
[2023-03-20] MEDS: POTASSIUM CHLORIDE ER 20 MEQ TAB.ER PO SCH (08:35)
[2023-03-20] MEDS: PRAVASTATIN SODIUM 80 MG TAB PO SCH (08:35)
[2023-03-20] MEDS: TOPIRAMATE 25 MG TAB PO SCH (08:36)
[2023-03-20] MEDS ORDERED: Magnesium Replacement Protocol 1 EACH MISC MISCELLANE PRN (09:23)
[2023-03-20] MEDS ORDERED: MAGNESIUM SULFATE-D5W PMX 1 GM in DEXTROSE/WATER 1 100ML.BAG IVPB ONE (09:23)
[2023-03-20] MEDS: CHOLESTYRAMINE (WITH SUGAR) 4 GM PACKET PO SCH (10:43)
[2023-03-20] MEDS: LOPERAMIDE 2 MG CAP PO SCH ×3 (10:49→18:54)
--- NOTE | 2023-03-20 11:15 | P.PN ---
Subjective patient is seen for follow-up for acute kidney injury. Renal function has been fairly stable. Currently being diuresed. no complaints today. Serum creatinine at 2.1 today down from 2.3 yesterday. Objective - Vital Signs Vital signs: Vital Signs Temp 98.2 F 03/20/23 08:00 Pulse 97 03/20/23 08:00 Resp 16 03/20/23 08:00 BP 148/65 03/20/23 08:00 Pulse Ox 91 L 03/20/23 08:00 FiO2 Intake & Output 03/19/23 03/20/23 03/20/23 18:59 06:59 18:59 Output Total 47 2 Balance -47 -2 Weight 50 kg 48.5 kg Output: Drainage 45 0 Lower Abdomen 45 0 Stool 2 2 Other: Voiding Method Bedside Commode Toilet Bedside Commode # Voids 1 5 # Bowel Movements 1 1 - Exam patient is awake, comfortable, no acute distress Triston at Examination of the heart S1 and S2 Examination of the lungs decreased breath sounds at the bases Abdomen is soft nontender Examination of lower extremity shows bilateral edema. Both legs are wrapped. PATIENT RELATIONS COORDINATOR exam grossly intact - Labs CBC & Chem 7: 03/20/23 06:21 03/20/23 06:21 Labs: Abnormal Lab Results - Last 24 Hours (Table) 03/19/23 03/20/23 03/20/23 Range/Units 04:55 06:21 06:21 RBC 2.85 L (3.80-5.40) m/uL Hgb 9.0 L (11.4-16.0) gm/dL Hct 28.0 L (34.0-46.0) % Plt Count 520 H (150-450) k/uL Lymphocytes # 0.9 L (1.0-4.8) k/uL Sodium 134 L (137-145) mmol/L Carbon Dioxide 21.4 L (21.6-31.8) mmol/L BUN 32.3 H 34 H (9.0-27.0) mg/dL Creatinine 2.3 H 2.17 H (0.6-1.5) mg/dL Est GFR (CKD-EPI) 20 L (>=60) Calcium 8.2 L 8.2 L (8.7-10.3) mg/dL Assessment and Plan Assessment: #1 acute kidney injury secondary to septic/hemodynamic ATN.renal function staying stable with creatinine at about 2.3 mg/dL. It is 2.1 today -Baseline creatinine 1.2 MG per DL #2 chronic kidney disease stage III secondary to nephrosclerosis #3 metabolic acidosis secondary to acute kidney injury #4 severe sepsis secondary to bowel perforation #5 A. fib with RVR Plan: can switch to oral diuretics ,, Lasix 40 mg by mouth daily upon discharge. Repeat labs in a.m.
--- NOTE | 2023-03-20 12:49 | P.PN ---
Subjective Progress Note Date: 03/20/23 CHIEF COMPLAINT: Colon perforation after outpatient colonoscopy HISTORY OF PRESENT ILLNESS: Patient is status post exploratory laparotomy with right colectomy on 03/08/2023. Patient reports her pain is controlled. Patient complaining of diarrhea. She did have 5 loose bowel movements today. Denies any nausea or vomiting. Medicine service with like her to stay 1 more day. Patient has received insurance authorization for ECF placement. Afebrile. WBC is 7.7 Hgb 9 creatinine trending down to 0.17 PHYSICAL EXAM: VITAL SIGNS: Reviewed. GENERAL: Well-developed in no acute distress. ABDOMEN: Soft. Nondistended. nontender. Incisional dressing clean dry and intact. ASSESSMENT: 1. Colon perforation status post exploratory laparotomy with right colectomy PLAN: -Agree with changing Imodium to scheduled and continuing Questran for diarrhea -Continue ground diet -Encourage patient to ambulate -Encourage patient to use incentive spirometer -DVT prophylaxis Eliquis -Patient will need ECF at discharge Physician Finished Carpet Inspector note has been reviewed by physician. Signing provider agrees with the documented findings, assessment, and plan of care. I have personally seen and examined the patient, reviewed the GLASS MAKER /PAs history, exam and MDM and agree with the assessment and plan as written. Based on total visit time, I have performed more than 50% of the visit. As above: Patient doing better today. Diarrhea improved. Will plan discharge to rehab tomorrow. Objective - Vital Signs Vital signs: Vital Signs Temp 98.2 F 03/20/23 08:00 Pulse 97 03/20/23 08:00 Resp 16 03/20/23 08:00 BP 148/65 03/20/23 08:00 Pulse Ox 91 L 03/20/23 08:00 FiO2 Intake & Output 03/19/23 03/20/23 03/20/23 18:59 06:59 18:59 Output Total 47 2 0 Balance -47 -2 0 Weight 50 kg 48.5 kg Output: Drainage 45 0 0 Lower Abdomen 45 0 0 Stool 2 2 Other: Voiding Method Bedside Commode Toilet Bedside Commode # Voids 1 5 # Bowel Movements 1 1 - Labs CBC & Chem 7: 03/20/23 06:21 03/20/23 06:21 Labs: Abnormal Lab Results - Last 24 Hours (Table) 03/19/23 03/20/23 03/20/23 Range/Units 04:55 06:21 06:21 RBC 2.85 L (3.80-5.40) m/uL Hgb 9.0 L (11.4-16.0) gm/dL Hct 28.0 L (34.0-46.0) % Plt Count 520 H (150-450) k/uL Lymphocytes # 0.9 L (1.0-4.8) k/uL Sodium 134 L (137-145) mmol/L Carbon Dioxide 21.4 L (21.6-31.8) mmol/L BUN 32.3 H 34 H (9.0-27.0) mg/dL Creatinine 2.3 H 2.17 H (0.6-1.5) mg/dL Est GFR (CKD-EPI) 20 L (>=60) Calcium 8.2 L 8.2 L (8.7-10.3) mg/dL
--- NOTE | 2023-03-20 15:05 | P.PN ---
Subjective Progress Note Date: 03/20/23 Patient is evaluated today resting in bed no acute complaints. Patient is postoperative day #4 exploratory laparotomy with right hemicolectomy for colon perforation. Reports abdominal pain is well-controlled per patient currently receiving IV Dilaudid and tramadol. Patient remains on IV Zosyn, white count today down to 10.7. Patient has had a couple loose bowel movements noted that she is on full liquid diet. She is passing gas. Midline incision is clean and dry. SURESH drain in place with minimal output serosanguineous in color. Creatinine has trended upwards 2.31 today, renal ultrasound requested. Nephrology will also be consulted. Patient is drowsy during the day family feels she may be slightly confused this is likely medication effect. Heart rate remains controlled. 03/13/2023 Patient is evaluated today sitting up in bed eating regular diet. Postoperative day #5 right hemicolectomy. Patient is having bowel movements. Mentation has improved slightly today. Family at bedside feels she has improved as well. Creatinine remains elevated 2.45 today, and patient remains on bicarb gtt. Renal ultrasound shows no obstructive uropathy. Wound cultures showing klebsiella and morganella as well as anaerobic gram neg bacilli. Patient remains on IV zosyn. Patient is being followed closely by PT/OT remains a moderate assist to get to the edge of bed and will require rehab on discharge. 03/14/2023 Patient is postoperative day #6 right hemicolectomy. She reports minimal abdominal pain and is tolerating a regular diet. She is having bowel movements. Patient is more awake and alert. She remains on a bicarb drip and creatinine has improved down to 2.17. Patient does complain of some dysphasia and also that she is holding food in the sides of her mouth. Speech therapy was consulte d for evaluation of this. Microsensitivities are available for discharge antibiotics ID is following closely. Patient needs insurance authorization for discharge to subacute rehab and this has been started. Hemodynamically she is stable. 03/15/2023 Patient is postoperative day #7 right hemicolectomy. Patient has minimal abominal pain main complaint today is difficulty swallowing holding food bolus in her mouth. Speech therapy evaluated the patient and recommending dysphagia level 3 chopped diet due to ill fitting dentures and tongue and jaw tremors. Patient needs no further skilled ST services. Creatinine today up to 2.3 and IV lasix given x 1, IV bicarbonate has been stopped. Patient is pending insurance authorization for DC to subacute rehab. Patient has 3 isolates from the abdomen culture and due to drug interactions with sotolol, ID recommending 1 week of IV antibiotics on discharge. 03/16/2023 Patient is postoperative day #8 hemicolectomy for perforated colon. She remains on IV antibiotics and cultures are showing Klebsiella and Morganella with anaerobic gram-negative bacilli. For now patient continues on IV Zosyn. Recommending a course of IV antibiotics on discharge from weeks duration. Patient is being followed by nephrology IV fluids have been stopped the patient is being given IV Lasix creatinine is up to 25 today patient does have some lower extremity peripheral edema. Potassium is also 3.2 today. 03/17/2023 Patient evaluated today on the medical floor she is up in the chair. She is postoperative day #9 hemicolectomy. She is having bowel movements she is not reporting much abdominal pain. Patient remains on IV antibiotics with recommendations from ID for outpatient IV antibiotics 1 week on discharge. Patient is being followed by nephrology and continues IV Lasix twice a day Recommending to bladder scan patient monitor for any urinary retention with postvoid residuals. Labs today show a creatinine of 2.33, potassium has improved to 3.6. Her white count is stable at 11.8. 03/18/2023 Patient is evaluated today sitting up in the chair she is postoperative day #10 hemicolectomy. Patient is having bowel movements however she continues with multiple episodes of loose diarrhea and C. diff was negative. She continues on IV antibiotics for the surgical wound cultures. General surgery recommending an abdominal pelvis CT with contrast this was completed and is showing no evidence for residual free air or abscess. There are postoperative changes about the cecal region with mild surrounding fatty attenuation which may be postsurgical in nature I do not see evidence for leak. Nonspecific bowel wall thickening involving the jejunal loops as well as scattered about the colon correlate for nonspecific enterocolitis. There is ascites and a small left pleural effusion. Patient remains IV Lasix with a creatinine of 2.38, sodium of 137 and potassium of 3.3. Her white count is normalized. Hemodynamically she is stable. 03/19/2023 Patient is evaluated today she is currently postoperative day #11 hemicolectomy due to perforated sigmoid colon. She is continued to have multiple loose bowel movements overnight and into today. C. diff is negative. CT showed enterocolitis. Remains antibiotics in the form of IV cefepime and by mouth Flagyl. Patient is receiving antidiarrheals Imodium and can add Questran. Nephrology following patient remains on IV diuretics and will switch to oral the morning. Labs from today are pending. 03/20/2023 Patient is evaluated today on the medical floor she is postoperative day #12 hemicolectomy due to his perforated sigmoid colon. Infectious disease is following and has taken the patient off antibiotics she has completed antibiotic therapy. She discontinued multiple episodes of loose stool not felt to be infectious in nature. CT does show enterocolitis. Patient is given Imodium sc heduled and also changed from question over to Metamucil psyllium husk and will be discharged to subacute rehab once her diarrhea improves. The looser stools may be from the surgery itself patient did have a hemicolectomy. She is continued on IV Lasix every 12 hours with nephrology following closely her kidney function has improved today with a creatinine down to 2.17. Hemodynamically she is stable. Review of Systems Constitutional: Denied any fatigue denied any fever. Cardio vascular: denied any chest pain, palpitations Gastrointestinal: denied any nausea, vomiting. Tolerating regular diet. Continues with multiple episodes of loose stool. Pulmonary: Denied any shortness of breath cough Neurologic denied any new focal deficits All inpatient medications were reviewed and appropriate changes in these medications as dictated in the interval history and assessment and plan. PHYSICAL EXAMINATION: GENERAL: The patient is alert and oriented x2 to 3, not in any acute distress. Well developed, well nourished. HEENT: Pupils are round and equally reacting to light. EOMI. No scleral icterus. No conjunctival pallor. Normocephalic, atraumatic. No pharyngeal erythema. No thyromegaly. CARDIOVASCULAR: S1 and S2 present. No murmurs, rubs, or gallops. PULMONARY: Chest is clear to auscultation, no wheezing or crackles. ABDOMEN: Soft, nontender, nondistended, normoactive bowel sounds. No palpable organomegaly. Post surgical abdomen with midline incision. SURESH drain in place MUSCULOSKELETAL: No joint swelling or deformity. EXTREMITIES: No cyanosis, clubbing, or pedal edema. NEUROLOGICAL: Gross neurological examination did not reveal any focal deficits. Diffuse weakness. SKIN: No rashes. Assessment Perforated Colon status post exploratory laparotomy with right colectomy with e nd to end anastomosis Sepsis secondary to above Altered mental status due to metabolic encephalopathy from kidney injury and sepsis resolved Volume overload Diarrhea with abdominal pelvis CT showing nonspecific enterocolitis C. diff was negative this could be related to antibiotics or to the surgery itself Acute kidney injury due to ATN and hypotension Chronic kidney disease stage IIIA Paroxysmal atrial fibrillation with rapid ventricular rate heart rate is now improved patient is anticoagulated History TIA Hypertension GI Prophylaxis DVT prophylaxis Full code Plan Speech therapy consultation diet downgraded to dysphagia 3 chopped ID following and antibiotics have been discontinued. Nephrology following, remains on IV Lasix twice a day recommend bladder scare monitoring of PVR/urinary retention and strict intake and output Continue on imodium scheduled and discussed with ID and recommended to dc the questran and start metamucil. Once diarrhea improves patient would be considered medically stable for DC to subacute rehab The impression and plan of care has been dictated by Tomasa Zepeda, Nurse Practitioner as directed. Dr. Sarah MD I have performed a history and physical examination and medical decision making of this patient, discussed the same with the dictator, and agree with the dictators assessment and plan as written, documented as a scribe. Based on total visit time, I have performed more than 50% of this visit. Objective - Vital Signs Vital signs: Vital Signs Temp 99.1 F 03/20/23 14:36 Pulse 85 03/20/23 14:36 Resp 17 03/20/23 14:36 BP 108/62 03/20/23 14:36 Pulse Ox 98 03/20/23 14:36 FiO2 Intake & Output 03/19/23 03/20/23 03/20/23 18:59 06:59 18:59 Output Total 47 2 0 Balance -47 -2 0 Weight 50 kg 48.5 kg Output: Drainage 45 0 0 Lower Abdomen 45 0 0 Stool 2 2 Other: Voiding Method Bedside Commode Toilet Bedside Commode # Voids 1 5 # Bowel Movements 1 1 - Labs CBC & Chem 7: 03/20/23 06:21 03/20/23 06:21 Labs: Abnormal Lab Results - Last 24 Hours (Table) 03/20/23 03/20/23 Range/Units 06:21 06:21 RBC 2.85 L (3.80-5.40) m/uL Hgb 9.0 L (11.4-16.0) gm/dL Hct 28.0 L (34.0-46.0) % Plt Count 520 H (150-450) k/uL Lymphocytes # 0.9 L (1.0-4.8) k/uL Sodium 134 L (137-145) mmol/L BUN 34 H (7-17) mg/dL Creatinine 2.17 H (0.52-1.04) mg/dL Calcium 8.2 L (8.4-10.2) mg/dL Assessment and Plan Time with Patient: Less than 30
--- NOTE | 2023-03-20 15:13 | P.PN ---
Subjective Progress Note Date: 03/19/23 Principal diagnosis: Perforated bowel and peritonitis Patient is a 87-year-old female with a past medical history difficult for CVA/TIA, hypertension and heart failure along with anxiety presenting to the hospital with abdominal pain apparently the patient recently did have a colonoscopy before her abdominal pain started patient was evaluated at the outside facility with the patient was noticed to have a perforated colon, patient was taken to the OR and status post right hemicolectomy and abdominal cultures.Patient did well due to A-fib with RVR for the patient was transferred to cardiology unit. On today's evaluation that is 03/19/2023, the patient continues to be afebrile, the patient is breathing comfortably on room air, the patient denies any chest pain shortness of breath or cough patient continued to have problem with diarrhea per the nursing staff. Patient white count normalized to 9.9 as of yesterdayCBC was done today, creatinine is 2.3 stool for C. difficile is negative patient did have a CT of abdominal pelvis no evidence for residual free air or abscess postoperative changes about the cecal region Objective - Vital Signs Vital signs: Vital Signs Temp 98.4 F 03/19/23 08:00 Pulse 103 H 03/19/23 08:00 Resp 16 03/19/23 08:00 BP 155/73 03/19/23 08:00 Pulse Ox 93 L 03/19/23 08:00 FiO2 Intake & Output 03/18/23 03/19/23 03/19/23 18:59 06:59 18:59 Output Total 42 Balance -42 Weight 50 kg Output: Drainage 40 Lower Abdomen 40 Stool 2 Other: Voiding Method Bedside Commode # Voids 1 5 2 # Bowel Movements 1 1 2 - Exam GENERAL DESCRIPTION: An alert female up in the chair in no distress RESPIRATORY SYSTEM: Unlabored breathing , decreased breath sounds at bases HEART: S1 S2 regular rate and rhythm , ABDOMEN: Soft , no tenderness EXTREMITIES: No edema feet - Labs CBC & Chem 7: 03/20/23 06:21 03/20/23 06:21 Assessment and Plan (1) Peritonitis Current Visit: Yes Status: Acute Code(s): K65.9 - PERITONITIS, UNSPECIFIED SNOMED Code(s): 47468791 (2) Bowel perforation Current Visit: Yes Status: Acute Code(s): K63.1 - PERFORATION OF INTESTINE (NONTRAUMATIC) SNOMED Code(s): 26850663 Plan: 1patient presented hospital abdominal pain has been diagnosed with perforated colon patient with a secondary peritonitis in this patient who is status post laparotomy and right hemicolectomy we will need to cover for the polymicrobial enteric michael usually associated with colon perforation, culture has been obtained, currently growing Klebsiella drug-resistant Morganella and anaerobes. 2patient remains to be afebrile white count has normalized patient has received more than 10 days of adequate IV antibiotic therapy now with persistent diarrhea could be related to antibiotics we will go ahead and discontinue Rocephin and Flagyl and monitor the patient closely off antibiotic therapy, discussed with the admitting team Dictation was produced using [employer] dictation software. please excuse any grammatical, word or spelling errors. Time with Patient: Less than 30
--- NOTE | 2023-03-20 15:14 | P.PN ---
Subjective Progress Note Date: 03/20/23 Principal diagnosis: Perforated bowel and peritonitis Patient is a 87-year-old female with a past medical history difficult for CVA/TIA, hypertension and heart failure along with anxiety presenting to the hospital with abdominal pain apparently the patient recently did have a colonoscopy before her abdominal pain started patient was evaluated at the outside facility with the patient was noticed to have a perforated colon, patient was taken to the OR and status post right hemicolectomy and abdominal cultures.Patient did well due to A-fib with RVR for the patient was transferred to cardiology unit. On today's evaluation that is 03/20/2023, the patient denies any fever or any chills, the patient is breathing comfortably on room air, the patient denies any chest pain shortness of breath or cough patient denies any nausea no vomiting tolerating her diet abdominal pain and diarrhea has slowed down for patient Patient white count is 7.7 today, creatinine is 2.17 stool for C. difficile is negative patient did have a CT of abdominal pelvis no evidence for residual free air or abscess postoperative changes about the cecal region Objective - Vital Signs Vital signs: Vital Signs Temp 98.2 F 03/20/23 08:00 Pulse 97 03/20/23 08:00 Resp 16 03/20/23 08:00 BP 148/65 03/20/23 08:00 Pulse Ox 91 L 03/20/23 08:00 FiO2 Intake & Output 03/19/23 03/20/23 03/20/23 18:59 06:59 18:59 Output Total 47 2 0 Balance -47 -2 0 Weight 50 kg 48.5 kg Output: Drainage 45 0 0 Lower Abdomen 45 0 0 Stool 2 2 Other: Voiding Method Bedside Commode Toilet Bedside Commode # Voids 1 5 # Bowel Movements 1 1 - Exam GENERAL DESCRIPTION: An alert female up in the chair in no distress RESPIRATORY SYSTEM: Unlabored breathing , decreased breath sounds at bases HEART: S1 S2 regular rate and rhythm , ABDOMEN: Soft , no tenderness EXTREMITIES: No edema feet - Labs CBC & Chem 7: 03/20/23 06:21 03/20/23 06:21 Labs: Abnormal Lab Results - Last 24 Hours (Table) 03/19/23 03/20/23 03/20/23 Range/Units 04:55 06:21 06:21 RBC 2.85 L (3.80-5.40) m/uL Hgb 9.0 L (11.4-16.0) gm/dL Hct 28.0 L (34.0-46.0) % Plt Count 520 H (150-450) k/uL Lymphocytes # 0.9 L (1.0-4.8) k/uL Sodium 134 L (137-145) mmol/L Carbon Dioxide 21.4 L (21.6-31.8) mmol/L BUN 32.3 H 34 H (9.0-27.0) mg/dL Creatinine 2.3 H 2.17 H (0.6-1.5) mg/dL Est GFR (CKD-EPI) 20 L (>=60) Calcium 8.2 L 8.2 L (8.7-10.3) mg/dL Assessment and Plan (1) Peritonitis Current Visit: Yes Status: Acute Code(s): K65.9 - PERITONITIS, UNSPECIFIED SNOMED Code(s): 99107471 (2) Bowel perforation Current Visit: Yes Status: Acute Code(s): K63.1 - PERFORATION OF INTESTINE (NONTRAUMATIC) SNOMED Code(s): 06694766 Plan: 1patient presented hospital abdominal pain has been diagnosed with perforated colon patient with a secondary peritonitis in this patient who is status post laparotomy and right hemicolectomy we will need to cover for the polymicrobial enteric michael usually associated with colon perforation, culture has been obtained, currently growing Klebsiella drug-resistant Morganella and anaerobes. 2patient remains to be afebrile white count has normalized patient has received more than 10 days of adequate IV antibiotic therapy, and is currently being monitor closely off antibiotic therapy white count stayed down despite discontinuation of antibiotic and will repeat a CBC with the a.m. lab Dictation was produced using [employer] dictation software. please excuse any grammatical, word or spelling errors. Time with Patient: Less than 30
[2023-03-20] MEDS: PSYLLIUM HUSK 100% 6 GM PACKET PO SCH (21:43)
[2023-03-21] MEDS: busPIRone HCl 5 MG TAB PO SCH ×2 (08:57→21:10)
[2023-03-21] MEDS: METOPROLOL SUCCINATE (ER) 25 MG TAB.ER.24H PO SCH (08:57)
[2023-03-21] MEDS: APIXABAN 2.5 MG TABLET PO SCH ×2 (08:58→21:10)
[2023-03-21] MEDS: PRAVASTATIN SODIUM 80 MG TAB PO SCH (08:58)
[2023-03-21] MEDS: LOPERAMIDE 2 MG CAP PO SCH ×4 (08:58→21:11)
[2023-03-21] MEDS: TOPIRAMATE 25 MG TAB PO SCH (08:58)
[2023-03-21] MEDS: PSYLLIUM HUSK 100% 6 GM PACKET PO SCH ×2 (08:58→21:11)
[2023-03-21] MEDS: PROPAFENONE 150 MG TAB PO SCH ×2 (08:58→21:10)
[2023-03-21] MEDS: POTASSIUM CHLORIDE ER 20 MEQ TAB.ER PO SCH (08:58)
[2023-03-21] MEDS: FUROSEMIDE 10 MG/ML 4 ML VIAL IV SCH ×2 (08:58→21:10)
[2023-03-21] MEDS: PANTOPRAZOLE 40 MG/10 ML VIAL IV SCH (08:58)
[2023-03-21] MEDS ORDERED: METOPROLOL TARTRATE 25 MG TAB PO STA (09:54)
--- NOTE | 2023-03-21 11:49 | P.PN ---
Subjective patient is seen for follow-up for acute kidney injury. Renal function has been fairly stable. Currently being diuresed. no complaints today. Serum creatinine at 2.1 down from 2.4 at peak. Walked with physical therapy Objective - Vital Signs Vital signs: Vital Signs Temp 98.5 F 03/21/23 07:51 Pulse 109 H 03/21/23 07:51 Resp 17 03/21/23 07:51 BP 125/52 03/21/23 07:51 Pulse Ox 93 L 03/21/23 07:51 FiO2 Intake & Output 03/20/23 03/21/23 03/21/23 18:59 06:59 18:59 Output Total 1 6 Balance -1 -6 Weight 47 kg Output: Drainage 0 4 Lower Abdomen 0 4 Urine 1 Stool 2 Other: Voiding Method Toilet Bedside Commode # Voids 19 2 1 # Bowel Movements 3 2 1 - Exam patient is awake, comfortable, no acute distress [place] at Examination of the heart S1 and S2 Examination of the lungs decreased breath sounds at the bases Abdomen is soft nontender Examination of lower extremity shows bilateral edema. Both legs are wrapped. SENIOR PRODUCT DEVELOPMENT MANAGER exam grossly intact - Labs CBC & Chem 7: 03/20/23 06:21 03/20/23 06:21 Assessment and Plan Assessment: #1 acute kidney injury secondary to septic/hemodynamic ATN.renal function staying stable with creatinine at about 2.3 mg/dL. It is 2.1 today -Baseline creatinine 1.2 MG per DL #2 chronic kidney disease stage III secondary to nephrosclerosis #3 metabolic acidosis secondary to acute kidney injury #4 severe sepsis secondary to bowel perforation #5 A. fib with RVR Plan: can switch to oral diuretics ,, Lasix 40 mg by mouth daily upon discharge. Repeat labs in a.m.
[2023-03-21 12:45] LABS: Basophils # (A) 0.02 X 10*3/uL (0.00-0.10); Basophils % (A) 0.2 %; Eosinophils # (A) 0.11 X 10*3/uL (0.04-0.35); Eosinophils % (A) 1.3 %; HCT 25.5 % (37.2-46.3); HGB 8.5 d/dL (12.0-15.0); Lymphocytes % (A) 10.9 %; MCH 33.3 pg (27.0-32.0); MCHC 33.3 d/dL (32.0-37.0); Mean Platelet Volume 9.8 FL (9.5-12.2); Monocytes # (A) 0.99 X 10*3/uL (0.20-1.00); NRBC Per 100 WBC 0 X 10*3/uL (0.00-0.01); Platelet Count 549 X 10*3/uL (140-440); RBC 2.55 X 10*6/uL (4.10-5.20); RDW 14.2 % (11.5-14.5); WBC 8.27 X 10*3/uL (4.50-10.00)
--- NOTE | 2023-03-21 12:57 | P.PN ---
Subjective Progress Note Date: 03/21/23 Principal diagnosis: Perforated bowel and peritonitis Patient is a 87-year-old female with a past medical history difficult for CVA/TIA, hypertension and heart failure along with anxiety presenting to the hospital with abdominal pain apparently the patient recently did have a colonoscopy before her abdominal pain started patient was evaluated at the outside facility with the patient was noticed to have a perforated colon, patient was taken to the OR and status post right hemicolectomy and abdominal cultures.Patient did well due to A-fib with RVR for the patient was transferred to cardiology unit. On today's evaluation that is 03/21/2023, the patient remains to be afebrile, the patient is breathing comfortably on room air, the patient denies any chest pain shortness of breath or cough patient denies any nausea no vomiting and has been tolerating her diet not assessed also complaining of diarrhea Patient white count is 8.27 today, creatinine is 2.17 as of yesterday, stool for C. difficile is negative patient did have a CT of abdominal pelvis no evidence for residual free air or abscess postoperative changes about the cecal region Objective - Vital Signs Vital signs: Vital Signs Temp 98.5 F 03/21/23 07:51 Pulse 109 H 03/21/23 07:51 Resp 17 03/21/23 07:51 BP 125/52 03/21/23 07:51 Pulse Ox 93 L 03/21/23 07:51 FiO2 Intake & Output 03/20/23 03/21/23 03/21/23 18:59 06:59 18:59 Output Total 1 6 Balance -1 -6 Weight 47 kg Output: Drainage 0 4 Lower Abdomen 0 4 Urine 1 Stool 2 Other: Voiding Method Toilet Bedside Commode # Voids 19 2 3 # Bowel Movements 3 2 1 - Exam GENERAL DESCRIPTION: An alert female up in the chair in no distress RESPIRATORY SYSTEM: Unlabored breathing , decreased breath sounds at bases HEART: S1 S2 regular rate and rhythm , ABDOMEN: Soft , no tenderness EXTREMITIES: No edema feet - Labs CBC & Chem 7: 03/21/23 07:02 03/20/23 06:21 Assessment and Plan (1) Peritonitis Current Visit: Yes Status: Acute Code(s): K65.9 - PERITONITIS, UNSPECIFIED SNOMED Code(s): 67918363 (2) Bowel perforation Current Visit: Yes Status: Acute Code(s): K63.1 - PERFORATION OF INTESTINE (NONTRAUMATIC) SNOMED Code(s): 85405367 Plan: 1patient presented hospital abdominal pain has been diagnosed with perforated colon patient with a secondary peritonitis in this patient who is status post laparotomy and right hemicolectomy we will need to cover for the polymicrobial enteric michael usually associated with colon perforation, culture has been obtained, currently growing Klebsiella drug-resistant Morganella and anaerobes. 2patient remains to be afebrile white count has normalized patient has received more than 10 days of adequate IV antibiotic therapy, and is currently being monitor closely off antibiotic therapy white count remains to be normal for the last 2 days despite discontinuation of antibiotic and will repeat a CBC with the a.m. lab 3-diarrhea to continue with the current symptomatic treatment Dictation was produced using [employer] dictation software. please excuse any grammatical, word or spelling errors. Time with Patient: Less than 30
[2023-03-21 13:03] LABS: Blood Urea Nitrogen 35.2 mg/dL (9.0-27.0); Chloride 105 mmol/L (96-109); Glucose 111 mg/dL (70-110); Sodium 140 mmol/L (135-145)
[2023-03-21 13:04] LABS: Calcium 8.6 mg/dL (8.7-10.3); Carbon Dioxide 24.6 mmol/L (21.6-31.8); Magnesium 2.3 mg/dL (1.5-2.4)
[2023-03-21] MEDS ORDERED: DIPHENOX-ATROP 2.5-0.025 MG 1 EACH TAB PO PRN (14:46)
[2023-03-21] MEDS ORDERED: methylPREDNISolone SOD SUCCI 40 MG/ML 1 ML VIAL IV STA (14:51)
--- NOTE | 2023-03-21 14:51 | P.PN ---
Subjective Progress Note Date: 03/21/23 CHIEF COMPLAINT: Colon perforation after outpatient colonoscopy HISTORY OF PRESENT ILLNESS: Patient is status post exploratory laparotomy with right colectomy on 03/08/2023. Patient reports her pain is controlled. Patient continues to have small loose bowel movements. Denies any nausea or vomiting. Mild tachycardia improved. Heart rate 82. WBC 8.27 Hgb 8.5 platelets 549 sodium 140 potassium 4.0 creatinine down to 2.0. SURESH drain removed. Medicine service did add Metamucil PHYSICAL EXAM: VITAL SIGNS: Reviewed. GENERAL: Well-developed in no acute distress. ABDOMEN: Soft. Nondistended. nontender. Incisional dressing clean dry and intact. ASSESSMENT: 1. Colon perforation status post exploratory laparotomy with right colectomy PLAN: -Continue antidiarrheals -Continue ground diet -Encourage patient to ambulate -Encourage patient to use incentive spirometer -DVT prophylaxis Eliquis -Anticipate discharge to [facility] tomorrow Physician Hvac Maintenance Technician note has been reviewed by physician. Signing provider agrees with the documented findings, assessment, and plan of care. Objective - Vital Signs Vital signs: Vital Signs Temp 98.0 F 03/21/23 14:00 Pulse 82 03/21/23 14:00 Resp 16 03/21/23 14:00 BP 120/70 03/21/23 14:00 Pulse Ox 99 03/21/23 14:00 FiO2 Intake & Output 03/20/23 03/21/23 03/21/23 18:59 06:59 18:59 Output Total 1 6 Balance -1 -6 Weight 47 kg Output: Drainage 0 4 Lower Abdomen 0 4 Urine 1 Stool 2 Other: Voiding Method Toilet Bedside Commode # Voids 19 2 5 # Bowel Movements 3 2 5 - Labs CBC & Chem 7: 03/21/23 07:02 03/21/23 07:02 Labs: Abnormal Lab Results - Last 24 Hours (Table) 03/21/23 03/21/23 Range/Units 07:02 07:02 RBC 2.55 L (4.10-5.20) X 10*6/uL Hgb 8.5 L (12.0-15.0) d/dL Hct 25.5 L (37.2-46.3) % MCV 100.0 H (80.0-97.0) FL MCH 33.3 H (27.0-32.0) pg Plt Count 549 H (140-440) X 10*3/uL BUN 35.2 H (9.0-27.0) mg/dL Creatinine 2.0 H (0.6-1.5) mg/dL Est GFR (CKD-EPI) 24 L (>=60) Glucose 111 H (70-110) mg/dL Calcium 8.6 L (8.7-10.3) mg/dL C-Reactive Protein 3.40 H (0.00-0.80) mg/dL
--- NOTE | 2023-03-21 14:55 | P.PN ---
Subjective Progress Note Date: 03/21/23 Patient is evaluated today resting in bed no acute complaints. Patient is postoperative day #4 exploratory laparotomy with right hemicolectomy for colon perforation. Reports abdominal pain is well-controlled per patient currently receiving IV Dilaudid and tramadol. Patient remains on IV Zosyn, white count today down to 10.7. Patient has had a couple loose bowel movements noted that she is on full liquid diet. She is passing gas. Midline incision is clean and dry. SURESH drain in place with minimal output serosanguineous in color. Creatinine has trended upwards 2.31 today, renal ultrasound requested. Nephrology will also be consulted. Patient is drowsy during the day family feels she may be slightly confused this is likely medication effect. Heart rate remains controlled. 03/13/2023 Patient is evaluated today sitting up in bed eating regular diet. Postoperative day #5 right hemicolectomy. Patient is having bowel movements. Mentation has improved slightly today. Family at bedside feels she has improved as well. Creatinine remains elevated 2.45 today, and patient remains on bicarb gtt. Renal ultrasound shows no obstructive uropathy. Wound cultures showing klebsiella and morganella as well as anaerobic gram neg bacilli. Patient remains on IV zosyn. Patient is being followed closely by PT/OT remains a moderate assist to get to the edge of bed and will require rehab on discharge. 03/14/2023 Patient is postoperative day #6 right hemicolectomy. She reports minimal abdominal pain and is tolerating a regular diet. She is having bowel movements. Patient is more awake and alert. She remains on a bicarb drip and creatinine has improved down to 2.17. Patient does complain of some dysphasia and also that she is holding food in the sides of her mouth. Speech therapy was consulte d for evaluation of this. Microsensitivities are available for discharge antibiotics ID is following closely. Patient needs insurance authorization for discharge to subacute rehab and this has been started. Hemodynamically she is stable. 03/15/2023 Patient is postoperative day #7 right hemicolectomy. Patient has minimal abominal pain main complaint today is difficulty swallowing holding food bolus in her mouth. Speech therapy evaluated the patient and recommending dysphagia level 3 chopped diet due to ill fitting dentures and tongue and jaw tremors. Patient needs no further skilled ST services. Creatinine today up to 2.3 and IV lasix given x 1, IV bicarbonate has been stopped. Patient is pending insurance authorization for DC to subacute rehab. Patient has 3 isolates from the abdomen culture and due to drug interactions with sotolol, ID recommending 1 week of IV antibiotics on discharge. 03/16/2023 Patient is postoperative day #8 hemicolectomy for perforated colon. She remains on IV antibiotics and cultures are showing Klebsiella and Morganella with anaerobic gram-negative bacilli. For now patient continues on IV Zosyn. Recommending a course of IV antibiotics on discharge from weeks duration. Patient is being followed by nephrology IV fluids have been stopped the patient is being given IV Lasix creatinine is up to 25 today patient does have some lower extremity peripheral edema. Potassium is also 3.2 today. 03/17/2023 Patient evaluated today on the medical floor she is up in the chair. She is postoperative day #9 hemicolectomy. She is having bowel movements she is not reporting much abdominal pain. Patient remains on IV antibiotics with recommendations from ID for outpatient IV antibiotics 1 week on discharge. Patient is being followed by nephrology and continues IV Lasix twice a day Recommending to bladder scan patient monitor for any urinary retention with postvoid residuals. Labs today show a creatinine of 2.33, potassium has improved to 3.6. Her white count is stable at 11.8. 03/18/2023 Patient is evaluated today sitting up in the chair she is postoperative day #10 hemicolectomy. Patient is having bowel movements however she continues with multiple episodes of loose diarrhea and C. diff was negative. She continues on IV antibiotics for the surgical wound cultures. General surgery recommending an abdominal pelvis CT with contrast this was completed and is showing no evidence for residual free air or abscess. There are postoperative changes about the cecal region with mild surrounding fatty attenuation which may be postsurgical in nature I do not see evidence for leak. Nonspecific bowel wall thickening involving the jejunal loops as well as scattered about the colon correlate for nonspecific enterocolitis. There is ascites and a small left pleural effusion. Patient remains IV Lasix with a creatinine of 2.38, sodium of 137 and potassium of 3.3. Her white count is normalized. Hemodynamically she is stable. 03/19/2023 Patient is evaluated today she is currently postoperative day #11 hemicolectomy due to perforated sigmoid colon. She is continued to have multiple loose bowel movements overnight and into today. C. diff is negative. CT showed enterocolitis. Remains antibiotics in the form of IV cefepime and by mouth Flagyl. Patient is receiving antidiarrheals Imodium and can add Questran. Nephrology following patient remains on IV diuretics and will switch to oral the morning. Labs from today are pending. 03/20/2023 Patient is evaluated today on the medical floor she is postoperative day #12 hemicolectomy due to his perforated sigmoid colon. Infectious disease is following and has taken the patient off antibiotics she has completed antibiotic therapy. She discontinued multiple episodes of loose stool not felt to be infectious in nature. CT does show enterocolitis. Patient is given Imodium sc heduled and also changed from question over to Metamucil psyllium husk and will be discharged to subacute rehab once her diarrhea improves. The looser stools may be from the surgery itself patient did have a hemicolectomy. She is continued on IV Lasix every 12 hours with nephrology following closely her kidney function has improved today with a creatinine down to 2.17. Hemodynamically she is stable. 03/21/2023 Discharge in progress planning for tomorrow. Patient is postoperative day #13 hemicolectomy. Her abdominal this fairly well-controlled she essentially has minimal to no pain. She is urinating without difficulty. She is off the antibiotics. She is receiving Imodium scheduled and we'll add Lomotil scheduled and also resume Questran and stop the Metamucil as patient seemed to have increased diarrhea with the addition of Metamucil. Patient will receive a dose of IV steroids as well. As long as diarrhea is improving patient she will to discharge to subacute rehab tomorrow. She'll be transitioned to oral Lasix in the morning. Recommend to repeat labs in a.m. Nephrology infectious disease are following this patient closely as well. SURESH drain has been removed by surgery. Creatinine down to 2.0. Review of Systems Constitutional: Denied any fatigue denied any fever. Cardio vascular: denied any chest pain, palpitations Gastrointestinal: denied any nausea, vomiting. Tolerating regular diet. Continues with multiple episodes of loose stool. Pulmonary: Denied any shortness of breath cough Neurologic denied any new focal deficits All inpatient medications were reviewed and appropriate changes in these medications as dictated in the interval history and assessment and plan. PHYSICAL EXAMINATION: GENERAL: The patient is alert and oriented x2 to 3, not in any acute distress. Well developed, well nourished. HEENT: Pupils are round and equally reacting to light. EOMI. No scleral icterus. No conjunctival pallor. Normocephalic, atraumatic. No pharyngeal erythema. No thyromegaly. CARDIOVASCULAR: S1 and S2 present. No murmurs, rubs, or gallops. PULMONARY: Chest is clear to auscultation, no wheezing or crackles. ABDOMEN: Soft, nontender, nondistended, normoactive bowel sounds. No palpable organomegaly. Post surgical abdomen with midline incision. SURESH drain removed. MUSCULOSKELETAL: No joint swelling or deformity. EXTREMITIES: No cyanosis, clubbing, or pedal edema. NEUROLOGICAL: Gross neurological examination did not reveal any focal deficits. Diffuse weakness. SKIN: No rashes. Assessment Perforated Colon status post exploratory laparotomy with right colectomy with end to end anastomosis Sepsis secondary to above Altered mental status due to metabolic encephalopathy from kidney injury and sepsis resolved Volume overload Diarrhea with abdominal pelvis CT showing nonspecific enterocolitis C. diff was negative this could be related to antibiotics or to the surgery itself Acute kidney injury due to ATN and hypotension improving. Chronic kidney disease stage IIIA Paroxysmal atrial fibrillation with rapid ventricular rate heart rate is now im proved patient is anticoagulated History TIA Hypertension GI Prophylaxis DVT prophylaxis Full code Plan Speech therapy consultation diet downgraded to dysphagia 3 chopped ID following and antibiotics have been discontinued. Nephrology following, remains on IV Lasix twice a day recommend bladder scare monitoring of PVR/urinary retention and strict intake and output Lasix will be transitioned to oral 40 mg daily tomorrow. continue on antidiarrheals patient to be discharged to rehab in the next 24 hours. The impression and plan of care has been dictated by Tomasa Zepeda, Nurse Practitioner as directed. Dr. Sarah MD I have performed a history and physical examination and medical decision making of this patient, discussed the same with the dictator, and agree with the dictators assessment and plan as written, documented as a scribe. Based on total visit time, I have performed more than 50% of this visit. Objective - Vital Signs Vital signs: Vital Signs Temp 98.0 F 03/21/23 14:00 Pulse 82 03/21/23 14:00 Resp 16 03/21/23 14:00 BP 120/70 03/21/23 14:00 Pulse Ox 99 03/21/23 14:00 FiO2 Intake & Output 03/20/23 03/21/23 03/21/23 18:59 06:59 18:59 Output Total 1 6 Balance -1 -6 Weight 47 kg Output: Drainage 0 4 Lower Abdomen 0 4 Urine 1 Stool 2 Other: Voiding Method Toilet Bedside Commode # Voids 19 2 5 # Bowel Movements 3 2 5 - Labs CBC & Chem 7: 03/21/23 07:02 03/21/23 07:02 Labs: Abnormal Lab Results - Last 24 Hours (Table) 03/21/23 03/21/23 Range/Units 07:02 07:02 RBC 2.55 L (4.10-5.20) X 10*6/uL Hgb 8.5 L (12.0-15.0) d/dL Hct 25.5 L (37.2-46.3) % MCV 100.0 H (80.0-97.0) FL MCH 33.3 H (27.0-32.0) pg Plt Count 549 H (140-440) X 10*3/uL BUN 35.2 H (9.0-27.0) mg/dL Creatinine 2.0 H (0.6-1.5) mg/dL Est GFR (CKD-EPI) 24 L (>=60) Glucose 111 H (70-110) mg/dL Calcium 8.6 L (8.7-10.3) mg/dL C-Reactive Protein 3.40 H (0.00-0.80) mg/dL Assessment and Plan Time with Patient: Less than 30
[2023-03-21] MEDS: DIPHENOX-ATROP 2.5-0.025 MG 1 EACH TAB PO SCH ×3 (15:51→23:59)
[2023-03-21] MEDS: CHOLESTYRAMINE (WITH SUGAR) 4 GM PACKET PO SCH (17:36)
[2023-03-21] MEDS: METOPROLOL TARTRATE 25 MG TAB PO SCH (21:10)
[2023-03-22] MEDS: DIPHENOX-ATROP 2.5-0.025 MG 1 EACH TAB PO SCH ×2 (06:10→12:47)
[2023-03-22 08:15] VITALS: BP 116/61; PULSE 79; RESP 17; TEMP 97.8
[2023-03-22] MEDS: PANTOPRAZOLE 40 MG/10 ML VIAL IV SCH (08:40)
[2023-03-22] MEDS: APIXABAN 2.5 MG TABLET PO SCH (08:41)
[2023-03-22] MEDS: PRAVASTATIN SODIUM 80 MG TAB PO SCH (08:41)
[2023-03-22] MEDS: TOPIRAMATE 25 MG TAB PO SCH (08:41)
[2023-03-22] MEDS: POTASSIUM CHLORIDE ER 20 MEQ TAB.ER PO SCH (08:41)
[2023-03-22] MEDS: PSYLLIUM HUSK 100% 6 GM PACKET PO SCH (08:41)
[2023-03-22] MEDS: busPIRone HCl 5 MG TAB PO SCH (08:41)
[2023-03-22] MEDS: METOPROLOL TARTRATE 25 MG TAB PO SCH (08:41)
[2023-03-22] MEDS: LOPERAMIDE 2 MG CAP PO SCH ×2 (08:41→12:47)
[2023-03-22] MEDS ORDERED: FUROSEMIDE 40 MG TAB PO SCH (09:00)
[2023-03-22] MEDS: PROPAFENONE 150 MG TAB PO SCH (09:23)
[2023-03-22] MEDS: CHOLESTYRAMINE (WITH SUGAR) 4 GM PACKET PO SCH (09:24)
--- NOTE | 2023-03-22 11:14 | P.PN ---
Subjective patient is seen for follow-up for acute kidney injury. Renal function has been fairly stable. Currently being diuresed. no complaints today. Serum creatinine at 2.0 down from 2.4 at peak. Patient is currently in the bathroom. She is able to communicate. No complaints of shortness of breath Objective - Vital Signs Vital signs: Vital Signs Temp 97.8 F 03/22/23 08:00 Pulse 79 03/22/23 08:00 Resp 17 03/22/23 08:00 BP 116/61 03/22/23 08:00 Pulse Ox 95 03/22/23 08:00 FiO2 Intake & Output 03/21/23 03/22/23 03/22/23 18:59 06:59 18:59 Weight 47 kg Other: Voiding Method Toilet Bedside Commode # Voids 2 # Bowel Movements 2 - Exam patient is awake, comfortable, no acute distress [place] at Examination of lower extremity shows Both legs are wrapped. WEB SIZER exam grossly intact - Labs CBC & Chem 7: 03/21/23 07:02 03/21/23 07:02 Labs: Abnormal Lab Results - Last 24 Hours (Table) 03/21/23 03/21/23 Range/Units 07:02 07:02 RBC 2.55 L (4.10-5.20) X 10*6/uL Hgb 8.5 L (12.0-15.0) d/dL Hct 25.5 L (37.2-46.3) % MCV 100.0 H (80.0-97.0) FL MCH 33.3 H (27.0-32.0) pg Plt Count 549 H (140-440) X 10*3/uL BUN 35.2 H (9.0-27.0) mg/dL Creatinine 2.0 H (0.6-1.5) mg/dL Est GFR (CKD-EPI) 24 L (>=60) Glucose 111 H (70-110) mg/dL Calcium 8.6 L (8.7-10.3) mg/dL C-Reactive Protein 3.40 H (0.00-0.80) mg/dL Assessment and Plan Assessment: #1 acute kidney injury secondary to septic/hemodynamic ATN.renal function staying stable with creatinine at about 2.3 mg/dL. It is 2.0 today -Baseline creatinine 1.2 MG per DL #2 chronic kidney disease stage III secondary to nephrosclerosis, baseline creatinine around 1.2-1.3 mg/dL #3 metabolic acidosis secondary to acute kidney injury #4 severe sepsis secondary to bowel perforation #5 A. fib with RVR, heart rate now controlled Plan: can switch to oral diuretics ,, Lasix 40 mg by mouth daily upon discharge. Repeat labs in a.m.
--- NOTE | 2023-03-22 12:38 | XR ---
EXAMINATION TYPE: XR abdomen 1V DATE OF EXAM: 03/22/2023 COMPARISON: CT abdomen and pelvis 03/18/2023 HISTORY: Diarrhea TECHNIQUE: Single supine KUB image of the abdomen is obtained FINDINGS: Small bowel demonstrates no evidence for dilatation or air fluid levels. Gas and fecal material is seen in non-distended colon. Pelvic phleboliths. Cholecystectomy clips in right upper quadrant. Midline skin marybeth. Post surgica l changes with suture material within the right lower quadrant. The osseous structures are intact. Mild dextrocurvature of the lumbar spine. Degenerative changes of the thoracolumbar spine. IMPRESSION: 1. Overall nonobstructive bowel gas pattern. 2. Post surgical changes.
--- NOTE | 2023-03-22 13:44 | P.DS ---
Providers Date of admission: 03/08/23 02:03 Expected date of discharge: 03/22/23 Attending physician: Sulaiman Reyes Consults: 03/08/23 07:30 Consult Physician Routine Consulting Provider: Chel Smith Consult Reason/Comments: Medical management Do you want consulting provider notified?: Yes 03/08/23 07:32 Consult Physician Routine Consulting Provider: Gerson Harrison Consult Reason/Comments: Right colon perforation Do you want consulting provider notified?: Yes 03/10/23 12:02 Consult Physician Stat Consulting Provider: Stevenson Foote Consult Reason/Comments: Pt needs A-fib meds ordered Do you want consulting provider notified?: Yes 03/12/23 12:06 Consult Physician Routine Consulting Provider: Thiago Jack Consult Reason/Comments: EMRE Do you want consulting provider notified?: Yes Primary care physician: Kosta Fang Hospital Course: Discharge diagnosis 1. Colon perforation status post exploratory laparotomy with right colectomy Hospital course This is a 87-year-old female who was transferred from an outside hospital after colonoscopy resulted in abdominal pain and findings of free air. She also was febrile. She had a computed tomography scan that had shown increased air loculations around the proximal transverse colon. Patient is status post exploratory laparotomy with right colectomy. Patient is tolerating diet. Denies any abdominal pain. She is having loose stools. This can be an expected finding after colectomy. Stool for C. diff negative. Patient has been cleared by all consultants for discharge. She completed antibiotic course during her admission. Her incision site is clean dry and intact. Patient is afebrile. She is stable for discharge to [facility]. Physician Birdcage Assembler note has been reviewed by physician. Signing provider agrees with the documented findings, assessment, and plan of care. Patient Condition at Discharge: Stable Plan - Discharge Summary Discharge Rx Participant: Yes New Discharge Prescriptions: New Acetaminophen Tab [Tylenol] 1,000 mg PO Q6HR PRN #30 tablet PRN Reason: Pain Loperamide [Imodium] 2 mg PO QID cap Famotidine [Pepcid] 20 mg PO DAILY #30 tablet Potassium Chloride ER [K-Dur 20] 20 meq PO DAILY tab Metoprolol Tartrate [Lopressor] 25 mg PO BID tab Diphenox-Atrop 2.5-0.025 mg [Lomotil] 1 each PO Q6HR PRN #4 tab PRN Reason: Diarrhea Furosemide [Lasix] 40 mg PO DAILY #30 tablet Continue Pravastatin Sodium [Pravachol] 80 mg PO DAILY Apixaban [Eliquis] 2.5 mg PO BID tablet Propafenone [Rythmol] 150 mg PO BID Vitamin C(Unknown Dose) 1 tab PO DAILY Primidone 125mg 125 mg PO HS busPIRone HCl [Buspar] 5 mg PO BID Topiramate [Topamax] 50 mg PO DAILY Calcium/Vitamin D(Unknown Dose) 1 tab PO DAILY Discontinued LORazepam [Lorazepam] 0.5 mg PO HS amLODIPine [Norvasc] 5 mg PO DAILY Propranolol LA [Inderal LA] 60 mg PO BID NIFEdipine XL [Procardia Xl] 30 mg PO DAILY Discharge Medication List Pravastatin Sodium [Pravachol] 80 mg PO DAILY 04/02/16 [History] Apixaban [Eliquis] 2.5 mg PO BID tablet 04/06/16 [Rx] Calcium/Vitamin D(Unknown Dose) 1 tab PO DAILY 03/08/23 [History] Primidone 125mg 125 mg PO HS 03/08/23 [History] Propafenone [Rythmol] 150 mg PO BID 03/08/23 [History] Topiramate [Topamax] 50 mg PO DAILY 03/08/23 [History] Vitamin C(Unknown Dose) 1 tab PO DAILY 03/08/23 [History] busPIRone HCl [Buspar] 5 mg PO BID 03/08/23 [History] Acetaminophen Tab [Tylenol] 1,000 mg PO Q6HR PRN #30 tablet 03/21/23 [Rx] Diphenox-Atrop 2.5-0.025 mg [Lomotil] 1 each PO Q6HR PRN #4 tab 03/21/23 [Rx] Famotidine [Pepcid] 20 mg PO DAILY #30 tablet 03/21/23 [Rx] Furosemide [Lasix] 40 mg PO DAILY #30 tablet 03/21/23 [Rx] Loperamide [Imodium] 2 mg PO QID cap 03/21/23 [Rx] Metoprolol Tartrate [Lopressor] 25 mg PO BID tab 03/21/23 [Rx] Potassium Chloride ER [K-Dur 20] 20 meq PO DAILY tab 03/21/23 [Rx] Follow up Appointment(s)/Referral(s): Sulaiman Reyes MD [Medical Doctor] - 1 Week Kosta Fang MD [Primary Care Provider] - 1-2 days [facility], [NON-STAFF] - As Needed Ambulatory/Diagnostic Orders: Basic Metabolic Panel [LAB.AMB] Time Frame: 3 Days, Location: None Selected Complete Blood Count w/diff [LAB.AMB] Time Frame: 3 Days, Location: None Selected Magnesium [LAB.AMB] Time Frame: 3 Days, Location: None Selected Activity/Diet/Wound Care/Special Instructions: No lifting over 10 pounds You may shower. No soaking or tub baths for 2 weeks Very light activity until you are reevaluated at your follow up appointment with your surgeon Discharge Disposition: HOME SELF-CARE
--- NOTE | 2023-03-22 14:21 | P.PN ---
Subjective Progress Note Date: 03/22/23 Principal diagnosis: Perforated bowel and peritonitis Patient is a 87-year-old female with a past medical history difficult for CVA/TIA, hypertension and heart failure along with anxiety presenting to the hospital with abdominal pain apparently the patient recently did have a colonoscopy before her abdominal pain started patient was evaluated at the outside facility with the patient was noticed to have a perforated colon, patient was taken to the OR and status post right hemicolectomy and abdominal cultures.Patient did well due to A-fib with RVR for the patient was transferred to cardiology unit. On today's evaluation that is 03/22/2023, the patient denies any fever or any chills, the patient is breathing comfortably on room air, the patient denies any chest pain shortness of breath or cough , patient denies any nausea no vomiting , the patient has been tolerating her diet and diarrhea has slowed down Patient white count is 8.27 and creatinine is 2.0 as of yesterday, no CBC was done today, stool for C. difficile is negative patient did have a CT of abdom inal pelvis no evidence for residual free air or abscess postoperative changes about the cecal region Objective - Vital Signs Vital signs: Vital Signs Temp 97.8 F 03/22/23 08:00 Pulse 79 03/22/23 08:00 Resp 17 03/22/23 08:00 BP 116/61 03/22/23 08:00 Pulse Ox 95 03/22/23 08:00 FiO2 Intake & Output 03/21/23 03/22/23 03/22/23 18:59 06:59 18:59 Weight 47 kg Other: Voiding Method Toilet Toilet Bedside Commode Bedside Commode # Voids 2 1 # Bowel Movements 2 1 - Exam GENERAL DESCRIPTION: An alert female up in the chair in no distress RESPIRATORY SYSTEM: Unlabored breathing , decreased breath sounds at bases HEART: S1 S2 regular rate and rhythm , ABDOMEN: Soft , no tenderness EXTREMITIES: No edema feet - Labs CBC & Chem 7: 03/21/23 07:02 03/21/23 07:02 Labs: Abnormal Lab Results - Last 24 Hours (Table) 03/21/23 03/21/23 Range/Units 07:02 07:02 RBC 2.55 L (4.10-5.20) X 10*6/uL Hgb 8.5 L (12.0-15.0) d/dL Hct 25.5 L (37.2-46.3) % MCV 100.0 H (80.0-97.0) FL MCH 33.3 H (27.0-32.0) pg Plt Count 549 H (140-440) X 10*3/uL BUN 35.2 H (9.0-27.0) mg/dL Creatinine 2.0 H (0.6-1.5) mg/dL Est GFR (CKD-EPI) 24 L (>=60) Glucose 111 H (70-110) mg/dL Calcium 8.6 L (8.7-10.3) mg/dL C-Reactive Protein 3.40 H (0.00-0.80) mg/dL Assessment and Plan (1) Peritonitis Status: Acute Code(s): K65.9 - PERITONITIS, UNSPECIFIED SNOMED Code(s): 64834967 (2) Bowel perforation Status: Acute Code(s): K63.1 - PERFORATION OF INTESTINE (NONTRAUMATIC) SNOMED Code(s): 39094155 Plan: 1patient presented hospital abdominal pain has been diagnosed with perforated colon patient with a secondary peritonitis in this patient who is status post laparotomy and right hemicolectomy we will need to cover for the polymicrobial enteric michael usually associated with colon perforation, culture has been obtained, currently growing Klebsiella drug-resistant Morganella and anaerobes. 2patient remains to be afebrile white count has normalized patient has received more than 10 days of adequate IV antibiotic therapy, and is currently being monitor closely off antibiotic therapy white count remains to be normal , despite discontinuation of antibiotic , there is no need for any antibiotics on discharge 3-diarrhea seemed to be improving to continue with the current symptomatic treatment Dictation was produced using [employer] dictation software. please excuse any grammatical, word or spelling errors. Time with Patient: Less than 30
[2023-03-22 14:59] LABS: Basophils # (A) 0.02 X 10*3/uL (0.00-0.10); Basophils % (A) 0.3 %; Eosinophils # (A) 0.06 X 10*3/uL (0.04-0.35); Eosinophils % (A) 0.8 %; HCT 25.1 % (37.2-46.3); HGB 7.9 d/dL (12.0-15.0); Lymphocytes # (A) 1.26 X 10*3/uL (0.90-5.00); Lymphocytes % (A) 15.8 %; MCH 32.1 pg (27.0-32.0); MCHC 31.5 d/dL (32.0-37.0); Mean Platelet Volume 9.4 FL (9.5-12.2); Monocytes # (A) 0.86 X 10*3/uL (0.20-1.00); Monocytes % (A) 10.8 %; NRBC Per 100 WBC 0 X 10*3/uL (0.00-0.01); Neutrophils # (A) 5.71 X 10*3/uL (1.80-7.70); Neutrophils % (A) 71.8 %; Platelet Count 518 X 10*3/uL (140-440); RBC 2.46 X 10*6/uL (4.10-5.20); RDW 14.5 % (11.5-14.5); WBC 7.95 X 10*3/uL (4.50-10.00)
--- NOTE | 2023-03-22 15:10 | P.PN ---
Subjective Progress Note Date: 03/22/23 Patient is evaluated today resting in bed no acute complaints. Patient is postoperative day #4 exploratory laparotomy with right hemicolectomy for colon perforation. Reports abdominal pain is well-controlled per patient currently receiving IV Dilaudid and tramadol. Patient remains on IV Zosyn, white count today down to 10.7. Patient has had a couple loose bowel movements noted that she is on full liquid diet. She is passing gas. Midline incision is clean and dry. SURESH drain in place with minimal output serosanguineous in color. Creatinine has trended upwards 2.31 today, renal ultrasound requested. Nephrology will also be consulted. Patient is drowsy during the day family feels she may be slightly confused this is likely medication effect. Heart rate remains controlled. 03/13/2023 Patient is evaluated today sitting up in bed eating regular diet. Postoperative day #5 right hemicolectomy. Patient is having bowel movements. Mentation has improved slightly today. Family at bedside feels she has improved as well. Creatinine remains elevated 2.45 today, and patient remains on bicarb gtt. Renal ultrasound shows no obstructive uropathy. Wound cultures showing klebsiella and morganella as well as anaerobic gram neg bacilli. Patient remains on IV zosyn. Patient is being followed closely by PT/OT remains a moderate assist to get to the edge of bed and will require rehab on discharge. 03/14/2023 Patient is postoperative day #6 right hemicolectomy. She reports minimal abdominal pain and is tolerating a regular diet. She is having bowel movements. Patient is more awake and alert. She remains on a bicarb drip and creatinine has improved down to 2.17. Patient does complain of some dysphasia and also that she is holding food in the sides of her mouth. Speech therapy was consulte d for evaluation of this. Microsensitivities are available for discharge antibiotics ID is following closely. Patient needs insurance authorization for discharge to subacute rehab and this has been started. Hemodynamically she is stable. 03/15/2023 Patient is postoperative day #7 right hemicolectomy. Patient has minimal abominal pain main complaint today is difficulty swallowing holding food bolus in her mouth. Speech therapy evaluated the patient and recommending dysphagia level 3 chopped diet due to ill fitting dentures and tongue and jaw tremors. Patient needs no further skilled ST services. Creatinine today up to 2.3 and IV lasix given x 1, IV bicarbonate has been stopped. Patient is pending insurance authorization for DC to subacute rehab. Patient has 3 isolates from the abdomen culture and due to drug interactions with sotolol, ID recommending 1 week of IV antibiotics on discharge. 03/16/2023 Patient is postoperative day #8 hemicolectomy for perforated colon. She remains on IV antibiotics and cultures are showing Klebsiella and Morganella with anaerobic gram-negative bacilli. For now patient continues on IV Zosyn. Recommending a course of IV antibiotics on discharge from weeks duration. Patient is being followed by nephrology IV fluids have been stopped the patient is being given IV Lasix creatinine is up to 25 today patient does have some lower extremity peripheral edema. Potassium is also 3.2 today. 03/17/2023 Patient evaluated today on the medical floor she is up in the chair. She is postoperative day #9 hemicolectomy. She is having bowel movements she is not reporting much abdominal pain. Patient remains on IV antibiotics with recommendations from ID for outpatient IV antibiotics 1 week on discharge. Patient is being followed by nephrology and continues IV Lasix twice a day Recommending to bladder scan patient monitor for any urinary retention with postvoid residuals. Labs today show a creatinine of 2.33, potassium has improved to 3.6. Her white count is stable at 11.8. 03/18/2023 Patient is evaluated today sitting up in the chair she is postoperative day #10 hemicolectomy. Patient is having bowel movements however she continues with multiple episodes of loose diarrhea and C. diff was negative. She continues on IV antibiotics for the surgical wound cultures. General surgery recommending an abdominal pelvis CT with contrast this was completed and is showing no evidence for residual free air or abscess. There are postoperative changes about the cecal region with mild surrounding fatty attenuation which may be postsurgical in nature I do not see evidence for leak. Nonspecific bowel wall thickening involving the jejunal loops as well as scattered about the colon correlate for nonspecific enterocolitis. There is ascites and a small left pleural effusion. Patient remains IV Lasix with a creatinine of 2.38, sodium of 137 and potassium of 3.3. Her white count is normalized. Hemodynamically she is stable. 03/19/2023 Patient is evaluated today she is currently postoperative day #11 hemicolectomy due to perforated sigmoid colon. She is continued to have multiple loose bowel movements overnight and into today. C. diff is negative. CT showed enterocolitis. Remains antibiotics in the form of IV cefepime and by mouth Flagyl. Patient is receiving antidiarrheals Imodium and can add Questran. Nephrology following patient remains on IV diuretics and will switch to oral the morning. Labs from today are pending. 03/20/2023 Patient is evaluated today on the medical floor she is postoperative day #12 hemicolectomy due to his perforated sigmoid colon. Infectious disease is following and has taken the patient off antibiotics she has completed antibiotic therapy. She discontinued multiple episodes of loose stool not felt to be infectious in nature. CT does show enterocolitis. Patient is given Imodium sc heduled and also changed from question over to Metamucil psyllium husk and will be discharged to subacute rehab once her diarrhea improves. The looser stools may be from the surgery itself patient did have a hemicolectomy. She is continued on IV Lasix every 12 hours with nephrology following closely her kidney function has improved today with a creatinine down to 2.17. Hemodynamically she is stable. 03/21/2023 Discharge in progress planning for tomorrow. Patient is postoperative day #13 hemicolectomy. Her abdominal this fairly well-controlled she essentially has minimal to no pain. She is urinating without difficulty. She is off the antibiotics. She is receiving Imodium scheduled and we'll add Lomotil scheduled and also resume Questran and stop the Metamucil as patient seemed to have increased diarrhea with the addition of Metamucil. Patient will receive a dose of IV steroids as well. As long as diarrhea is improving patient she will to discharge to subacute rehab tomorrow. She'll be transitioned to oral Lasix in the morning. Recommend to repeat labs in a.m. Nephrology infectious disease are following this patient closely as well. SURESH drain has been removed by surgery. Creatinine down to 2.0. 03/22/2023 Patient evaluated today sitting up in bed. Postoperative day #14 hemicolectomy. No abdominal pain, tolerating diet. Taken off antibiotics. ID has cleared the patient. Nephrology following, patient has been transitioned to oral lasix and labs are still pending from today. Patient continues with multiple small episodes of loose BM this could be fecal incontinence, could be related to recent bowel surgery, or from antibiotics. C.Dif negative. On lomitil, imodium and questran. Stool is non bloody. Medically she is stable and general surgery would like to DC the patient to subacute rehab. Hemodynamically stable and blood pressure 116/61. Review of Systems Constitutional: Denied any fatigue denied any fever. Cardio vascular: denied any chest pain, palpitations Gastrointestinal: denied any nausea, vomiting. Tolerating regular diet. Continues with multiple episodes of loose stool. Pulmonary: Denied any shortness of breath cough Neurologic denied any new focal deficits All inpatient medications were reviewed and appropriate changes in these medications as dictated in the interval history and assessment and plan. PHYSICAL EXAMINATION: GENERAL: The patient is alert and oriented x2 to 3, not in any acute distress. Well developed, well nourished. HEENT: Pupils are round and equally reacting to light. EOMI. No scleral icterus. No conjunctival pallor. Normocephalic, atraumatic. No pharyngeal erythema. No thyromegaly. CARDIOVASCULAR: S1 and S2 present. No murmurs, rubs, or gallops. PULMONARY: Chest is clear to auscultation, no wheezing or crackles. ABDOMEN: Soft, nontender, nondistended, normoactive bowel sounds. No palpable organomegaly. Post surgical abdomen with midline incision. SURESH drain removed. MUSCULOSKELETAL: No joint swelling or deformity. EXTREMITIES: No cyanosis, clubbing, or pedal edema. NEUROLOGICAL: Gross neurological examination did not reveal any focal deficits. Diffuse weakness. SKIN: No rashes. Assessment Perforated Colon status post exploratory laparotomy with right colectomy with end to end anastomosis POD #14 Sepsis secondary to above completed antibiotic therapy while inpatient. Altered mental status due to metabolic encephalopathy from kidney injury and sepsis resolved Volume overload treated with IV lasix and transitioned to PO lasix now. Diarrhea with abdominal pelvis CT showing nonspecific enterocolitis C. diff was negative this could be related to antibiotics or to the surgery itself Acute kidney injury due to ATN and hypotension improving. Chronic kidney disease stage IIIA Paroxysmal atrial fibrillation with rapid ventricular rate heart rate is now improved patient is anticoagulated History TIA Hypertension GI Prophylaxis DVT prophylaxis Full code Plan Speech therapy consultation diet downgraded to dysphagia 3 chopped ID following and antibiotics have been discontinued. Nephrology following, remains on IV Lasix twice a day recommend bladder scare monitoring of PVR/urinary retention and strict intake and output Lasix will be transitioned to oral 40 mg daily tomorrow. Continue on antidiarrheals patient to be discharged to rehab in the next 24 hours. Repeat labs outpatient in 2 to 3 days. Patient to follow up with general surgery, PCP and ID on discharge. Patient will be discharged to [facility] today for subacute rehab. The impression and plan of care has been dictated by Tomasa Zepeda Nurse Practitioner as directed. Dr. Sarah MD I have performed a history and physical examination and medical decision making of this patient, discussed the same with the dictator, and agree with the dictators assessment and plan as written, documented as a scribe. Based on total visit time, I have performed more than 50% of this visit. Objective - Vital Signs Vital signs: Vital Signs Temp 97.8 F 03/22/23 08:00 Pulse 79 03/22/23 08:00 Resp 17 03/22/23 08:00 BP 116/61 03/22/23 08:00 Pulse Ox 95 03/22/23 08:00 FiO2 Intake & Output 03/21/23 03/22/23 03/22/23 18:59 06:59 18:59 Weight 47 kg Other: Voiding Method Toilet Toilet Bedside Commode Bedside Commode # Voids 2 1 # Bowel Movements 2 1 - Labs CBC & Chem 7: 03/22/23 06:37 03/21/23 07:02 Labs: Abnormal Lab Results - Last 24 Hours (Table) 03/22/23 Range/Units 06:37 RBC 2.46 L (4.10-5.20) X 10*6/uL Hgb 7.9 L (12.0-15.0) d/dL Hct 25.1 L (37.2-46.3) % MCV 102.0 H (80.0-97.0) FL MCH 32.1 H (27.0-32.0) pg MCHC 31.5 L (32.0-37.0) d/dL Plt Count 518 H (140-440) X 10*3/uL MPV 9.4 L (9.5-12.2) FL Assessment and Plan Time with Patient: Less than 30
[2023-03-22 17:27] LABS: BUN/Creat Ratio 20.95 Ratio (12.00-20.00); Blood Urea Nitrogen 41.9 mg/dL (9.0-27.0); Calcium 8.9 mg/dL (8.7-10.3); Carbon Dioxide 25.8 mmol/L (21.6-31.8); Chloride 105 mmol/L (96-109); Glucose 89 mg/dL (70-110); Magnesium 2.3 mg/dL (1.5-2.4); Potassium 4.2 mmol/L (3.5-5.5); Sodium 140 mmol/L (135-145)
== END 2023-03-22 14:12 | DRG 856 ==
LOC: EC 01:33 → 5NMEDONC 02:03 → 4SSUR 02:25 → 5NMEDONC 07:46 → 3SCARD 03-10 13:31 → 4SSUR 03-13 21:13
PROVIDERS: ADMIT Surgery; ATTEND Surgery
PROC: 0DTF0ZZ Resection of Right Large Intestine, Open Approach (ICD-10-PCS; principal; 2023-03-08 05:30)
DX: T81.44XA Sepsis following a procedure, initial encounter (principal); A41.9 Sepsis, unspecified organism; N17.0 Acute kidney failure with tubular necrosis; R65.20 Severe sepsis without septic shock; K63.1 Perforation of intestine (nontraumatic); G93.41 Metabolic encephalopathy; K65.9 Peritonitis, unspecified; K91.71 Accidental puncture and laceration of a digestive system organ or structure during a digestive system procedure; I13.0 Hypertensive heart and chronic kidney disease with heart failure and stage 1 through stage 4 chronic kidney disease, or unspecified chronic kidney disease; E87.20 Acidosis, unspecified; R18.8 Other ascites; K56.7 Ileus, unspecified; E87.1 Hypo-osmolality and hyponatremia; I50.9 Heart failure, unspecified; N18.31 Chronic kidney disease, stage 3a; I48.0 Paroxysmal atrial fibrillation; I95.9 Hypotension, unspecified; B96.1 Klebsiella pneumoniae [K. pneumoniae] as the cause of diseases classified elsewhere; B96.4 Proteus (mirabilis) (morganii) as the cause of diseases classified elsewhere; R47.02 Dysphasia; E78.5 Hyperlipidemia, unspecified; E87.6 Hypokalemia; F41.9 Anxiety disorder, unspecified; K52.9 Noninfective gastroenteritis and colitis, unspecified; Z79.01 Long term (current) use of anticoagulants; Z79.899 Other long term (current) drug therapy; Z86.73 Personal history of transient ischemic attack (TIA), and cerebral infarction without residual deficits; Y83.8 Other surgical procedures as the cause of abnormal reaction of the patient, or of later complication, without mention of misadventure at the time of the procedure; Y73.0 Diagnostic and monitoring gastroenterology and urology devices associated with adverse incidents
CPT/HCPCS: 36410; 36415; 71045; 74018; 74176; 76770; 76937; 80048; 80053; 81001; 82607; 82747; 83690; 83735; 84100; 84132; 84550; 85025; 85610; 85730; 86140; 86850; 86900; 86901; 87070; 87075; 87077; 87186; 87205; 87324; 88307; 93005; 96360; 96361; 99291

== ENCOUNTER 2023-12-23 20:58 | Inpatient (IN) | payer MEDICARE, OTHER ==
[2023-12-23] MEDS ORDERED: ONDANSETRON 4 MG/2 ML VIAL IVP PRN (21:17)
[2023-12-23] MEDS ORDERED: ACETAMINOPHEN TAB 325 MG TAB PO PRN (21:17)
[2023-12-23] MEDS ORDERED: NALOXONE 0.4 MG/ML 1 ML VIAL IV PRN (21:17)
--- NOTE | 2023-12-23 21:48 | ED ---
General Adult HPI - General Chief complaint: Chest Pain Stated complaint: Weakness, Tachy Time Seen by Provider: 12/23/23 21:09 Source: patient, RN notes reviewed, old records reviewed Mode of arrival: EMS - History of Present Illness Initial comments: 88-year-old female presenting as transfer from outside hospital with chief complaint of cough and weakness. Patient was noted to be COVID-positive and noted to have a significantly elevated troponin with EKG changes. She does endorse some intermittent chest discomfort although actively not having any chest pain. Troponin was 16. She was started on heparin, given statin and transferred for cardiology evaluation. Patient is alert and oriented without complaint at the time my evaluation. - Related Data Home Medications Medication Instructions Recorded Confirmed Pravastatin Sodium [Pravachol] 80 mg PO DAILY 04/02/16 03/08/23 Calcium/Vitamin D(Unknown Dose) 1 tab PO DAILY 03/08/23 03/08/23 Primidone 125mg 125 mg PO HS 03/08/23 03/08/23 Propafenone [Rythmol] 150 mg PO BID 03/08/23 03/08/23 Topiramate [Topamax] 50 mg PO DAILY 03/08/23 03/08/23 Vitamin C(Unknown Dose) 1 tab PO DAILY 03/08/23 03/08/23 busPIRone HCl [Buspar] 5 mg PO BID 03/08/23 03/08/23 Previous Rx's Medication Instructions Recorded Apixaban [Eliquis] 2.5 mg PO BID tablet 04/06/16 Acetaminophen Tab [Tylenol] 1,000 mg PO Q6HR PRN #30 tablet 03/21/23 Diphenox-Atrop 2.5-0.025 mg 1 each PO Q6HR PRN #4 tab 03/21/23 [Lomotil] Famotidine [Pepcid] 20 mg PO DAILY #30 tablet 03/21/23 Furosemide [Lasix] 40 mg PO DAILY #30 tablet 03/21/23 Loperamide [Imodium] 2 mg PO QID cap 03/21/23 Metoprolol Tartrate [Lopressor] 25 mg PO BID tab 03/21/23 Potassium Chloride ER [K-Dur 20] 20 meq PO DAILY tab 03/21/23 Allergies Allergy/AdvReac Type Severity Reaction Status Date / Time No Known Allergies Allergy Verified 12/23/23 21:15 Review of Systems ROS Statement: Those systems with pertinent positive or pertinent negative responses have been documented in the HPI. ROS Other: All systems not noted in ROS Statement are negative. Past Medical History Past Medical History: Atrial Fibrillation, Heart Failure, CVA/TIA, Hypertension Additional Past Medical History / Comment(s): anxiety History of Any Multi-Drug Resistant Organisms: None Reported Past Surgical History: Back Surgery, Tubal Ligation Additional Past Surgical History / Comment(s): exploatory laprotomy with right colectomy 03/08/[address] quinn due to perforated bowel after a colonoscopy at a different facility on 03/05/23. Past Anesthesia/Blood Transfusion Reactions: No Reported Reaction Past Psychological History: Anxiety Smoking Status: Never smoker Past Alcohol Use History: None Reported Past Drug Use History: None Reported - Past Family History Father Family Medical History: CVA/TIA Mother Family Medical History: Cancer Additional Family Medical History / Comment(s): Mother had bladder cancer General Exam General appearance: alert, in no apparent distress Head exam: Present: atraumatic, normocephalic Eye exam: Present: normal appearance, PERRL ENT exam: Present: normal exam Neck exam: Present: normal inspection. Absent: tenderness, meningismus Respiratory exam: Present: normal lung sounds bilaterally. Absent: respiratory distress, wheezes, rhonchi Cardiovascular Exam: Present: regular rate, normal rhythm GI/Abdominal exam: Present: soft. Absent: distended, tenderness Extremities exam: Present: pedal edema Neurological exam: Present: alert, oriented X3, CN II-XII intact. Absent: motor sensory deficit Psychiatric exam: Present: normal affect, normal mood Skin exam: Present: warm, dry, intact, normal color Course Vital Signs 12/23/23 21:08 Temperature 98.8 F Pulse Rate 66 Respiratory 16 Rate Blood Pressure 97/48 Medical Decision Making - Medical Decision Making Was pt. sent in by a medical professional or institution (, PA, PIPE AND TEST SUPERVISOR, urgent care, hospital, or [facility]...) When possible be specific @ -Sent from [facility] for evaluation of troponin elevation and coronavirus Did you speak to anyone other than the patient for history (EMS, parent, family, police, friend...)? What history was obtained from this source @ -No Did you review nursing and triage notes (agree or disagree)? Why? @ -I reviewed and agree with nursing and triage notes Were old charts reviewed (outside hosp., previous admission, EMS record, old EKG, old radiological studies, urgent care reports/EKG's, [facility] records)? Report findings @ -No old charts were reviewed Differential Weakness: Hypoglycemia, shock, sepsis, hyponatremia, anemia, infection, ND, ETOH, adverse medicine reaction, overdose, stroke, this is not meant to be an all-inclusive list. EKG interpreted by me (3pts min.). @EKG is sinus rhythm rate of [address] segment elevation RI interval 166, QRS duration 79, QTc 422 X-rays interpreted by me (1pt min.). @ -None done CT interpreted by me (1pt min.). @ -None done U/S interpreted by me (1pt. min.). @ -None done What testing was considered but not performed or refused? (CT, X-rays, U/S, labs)? Why? @ -None What meds were considered but not given or refused? Why? @ -None Did you discuss the management of the patient with other professionals (professionals i.e. , PA, PIPE AND TEST SUPERVISOR, lab, RT, psych nurse, social services aide, lawyer real estate, teacher, medical officer psychiatry, hospice case manager)? Give summary @Case discussed with Dr. Rivas including patient's presentation and EKG findings, this is felt to be a myocarditis/pericarditis. Patient will be continued on heparin, and echo is ordered as well as serial cardiac enzymes. Case discussed with Tomasa nelson for [facility], will admit Was smoking cessation discussed for >3mins.? @ -No Was critical care preformed (if so, how long)? @ -Yes, 35 minutes Were there social determinants of health that impacted care today? How? (Homelessness, low income, unemployed, alcoholism, drug addiction, transportation, low edu. Level, literacy, decrease access to med. care, senior living, rehab)? @ -No Was there de-escalation of care discussed even if they declined (Discuss DNR or withdrawal of care, Hospice)? DNR status @ -No What co-morbidities impacted this encounter? (DM, HTN, Smoking, COPD, CAD, Cancer, CVA, ARF, Chemo, Hep., AIDS, mental health diagnosis, sleep apnea, morbid obesity)? @ -Atrial fibrillation on Eliquis Was patient admitted / discharged? Hospital course, mention meds given and route, prescriptions, significant lab abnormalities, going to OR and other pertinent info. @Patient admitted with repeat laboratory testing including serial cardiac enzymes, echo has been ordered. Undiagnosed new problem with uncertain prognosis? @ -No Drug Therapy requiring intensive monitoring for toxicity (Heparin, Nitro, Insulin, Cardizem)? @ -No Were any procedures done? @ -No Diagnosis/symptom? @ -[COVID, myocarditis, pericarditis, troponin elevation Acute, or Chronic, or Acute on Chronic? @Acute Uncomplicated (without systemic symptoms) or Complicated (systemic symptoms)? @ -Default Side effects of treatment? @ -No Exacerbation, Progression, or Severe Exacerbation? @ -No Poses a threat to life or bodily function? How? (Chest pain, USA, ND, pneumonia, PE, COPD, DKA, ARF, appy, cholecystitis, CVA, Diverticulitis, Homicidal, Suicidal, threat to staff... and all critical care pts) @ -Yes, cardiogenic shock, ACS, COVID Critical Care Time Critical Care Time: Yes Total Critical Care Time: 35 Disposition Clinical Impression: Acute non-ST elevation myocardial infarction (NSTEMI), Myocarditis, COVID-19 Disposition: ADMITTED IP TO THIS HOSP Condition: Stable Is patient prescribed a controlled substance at d/c from ED?: No Referrals: Kosta Fang MD [Primary Care Provider] - 1-2 days Time of Disposition: 21:48
[2023-12-23] MEDS: SODIUM CHLORIDE 0.9% 500 ML 500 ML IV ONE (21:52)
[2023-12-23] MEDS: SODIUM CHLORIDE 0.9% 1,000 ML IV SCH (21:52)
[2023-12-23 22:20] LABS: Basophils % (A) 0 %; Eosinophils # (A) 0.1 k/uL (0-0.7); Eosinophils % (A) 1 %; HCT 28.6 % (34.0-46.0); HGB 9.1 gm/dL (11.4-16.0); Lymphocytes # (A) 1.4 k/uL (1.0-4.8); Lymphocytes % (A) 13 %; MCH 31.8 pg (25.0-35.0); MCHC 31.9 g/dL (31.0-37.0); MCV 99.7 fL (80.0-100.0); Mean Platelet Volume 9.4; Monocytes % (A) 9 %; Neutrophils # (A) 8.2 k/uL (1.3-7.7); Neutrophils % (A) 76 %; Platelet Count 248 k/uL (150-450); RBC 2.87 m/uL (3.80-5.40); WBC 10.8 k/uL (3.8-10.6)
[2023-12-23 22:23] LABS: ALT 58 U/L (4-34); AST 98 U/L (14-36); African American GFR (CKD) 36 (>60 ml/min/1.73 sqM); Albumin 3.1 g/dL (3.5-5.0); Alkaline Phosphatase 129 U/L (38-126); Anion Gap 5 mmol/L; Blood Urea Nitrogen 28 mg/dL (7-17); Calcium 7.8 mg/dL (8.4-10.2); Carbon Dioxide 19 mmol/L (22-30); Chloride 112 mmol/L (98-107); Glucose 116 mg/dL (74-99); Magnesium 2.1 mg/dL (1.6-2.3); Non-African American GFR(CKD) 32 (>60 ml/min/1.73 sqM); Potassium 4.2 mmol/L (3.5-5.1); Sodium 136 mmol/L (137-145); Total Protein 6.1 g/dL (6.3-8.2)
[2023-12-23] MEDS: HEPARIN SOD,PORK IN 0.45% NACL 25,000 UNIT in 0.45% NACL 1 250ML.BAG IV SCH (22:41)
[2023-12-24] MEDS: HEPARIN SODIUM 1,000 UN/ML (10ML VL) IV PRN (05:40)
--- NOTE | 2023-12-24 08:18 | P.CRDCN ---
History of Present Illness Consult date: 12/24/23 Chief complaint: Chest discomfort and shortness of breath History of present illness: This is an 88-year-old female patient who is known to our service from before with a past medical history significant for paroxysmal atrial fibrillation and history of TIA as well as hypertension and dyslipidemia. She presented initially to the hospital in [facility] with chest discomfort and shortness of breath and she was noted to have abnormal cardiac enzymes and she also was tested positive for COVID initially but that testing to be negative subsequentl y. She was transferred because of the symptoms and the EKG. The EKG showed sinus mechanism with ST changes inferiorly and laterally concerning for ST elevation myocardial infarction and the troponin came in to be significantly abnormal and also concerning for acute coronary syndrome. Currently she is chest pain-free. The hemoglobin is around 9. The creatinine is slightly elevated and she is known to have chronic kidney disease. Echocardiogram was ordered and still pending. I am going to repeat the test for COVID at this point and also repeat the EKG and follow-up on the echocardiogram. Further recommendation to follow. The patient currently is on heparin. Currently she is asymptomatic. No history of CAD but she is known to have paroxysmal atrial fibrillation and has multiple risk factors. The examination is remarkable for stable vital signs with regular rate and rhythm and systolic murmur at the right upper sternal border with clear breathing sounds bilaterally and no edema was noted Assessment Acute coronary syndrome Paroxysmal atrial fibrillation Multiple comorbid conditions Chronic kidney disease Possible COVID positive Plan Continue heparin Obtain COVID test again The patient seems to be asymptomatic at this point Obtain an echocardiogram with Doppler Further recommendation to follow Discussed the invasive versus conservative approach with the patient Past Medical History Past Medical History: Atrial Fibrillation, Heart Failure, CVA/TIA, Hyperlipidemia, Hypertension Additional Past Medical History / Comment(s): insomnia, hemorrhoids, diverticulosis, hard of hearing, osteopenia History of Any Multi-Drug Resistant Organisms: None Reported Past Surgical History: Back Surgery, Tubal Ligation Additional Past Surgical History / Comment(s): exploatory laprotomy with right colectomy 03/08/[address] quinn due to perforated bowel after a colonoscopy at a different facility on 03/05/23. Past Anesthesia/Blood Transfusion Reactions: No Reported Reaction Past Psychological History: Anxiety Smoking Status: Never smoker Past Alcohol Use History: None Reported Past Drug Use History: None Reported - Past Family History Father Family Medical History: CVA/TIA Mother Family Medical History: Cancer Additional Family Medical History / Comment(s): Mother had bladder cancer Medications and Allergies Home Medications Medication Instructions Recorded Confirmed Type Pravastatin Sodium [Pravachol] 80 mg PO DAILY 04/02/16 03/08/23 History Apixaban [Eliquis] 2.5 mg PO BID tablet 04/06/16 03/08/23 Rx Calcium/Vitamin D(Unknown Dose) 1 tab PO DAILY 03/08/23 03/08/23 History Primidone 125mg 125 mg PO HS 03/08/23 03/08/23 History Propafenone [Rythmol] 150 mg PO BID 03/08/23 03/08/23 History Topiramate [Topamax] 50 mg PO DAILY 03/08/23 03/08/23 History Vitamin C(Unknown Dose) 1 tab PO DAILY 03/08/23 03/08/23 History busPIRone HCl [Buspar] 5 mg PO BID 03/08/23 03/08/23 History Acetaminophen Tab [Tylenol] 1,000 mg PO Q6HR PRN #30 tablet 03/21/23 Rx Diphenox-Atrop 2.5-0.025 mg 1 each PO Q6HR PRN #4 tab 03/21/23 Rx [Lomotil] Famotidine [Pepcid] 20 mg PO DAILY #30 tablet 03/21/23 Rx Furosemide [Lasix] 40 mg PO DAILY #30 tablet 03/21/23 Rx Loperamide [Imodium] 2 mg PO QID cap 03/21/23 Rx Metoprolol Tartrate [Lopressor] 25 mg PO BID tab 03/21/23 Rx Potassium Chloride ER [K-Dur 20] 20 meq PO DAILY tab 03/21/23 Rx Allergies Allergy/AdvReac Type Severity Reaction Status Date / Time lisinopril Allergy Unknown Verified 12/24/23 03:27 nitroglycerin Allergy Unknown Verified 12/24/23 03:27 [From Nitro-Dur] Physical Exam Vitals: Vital Signs Temp Pulse Pulse Resp BP Pulse Ox 12/24/23 06:00 60 16 104/63 98 12/24/23 05:21 73 12/24/23 05:00 61 18 101/45 97 12/24/23 04:00 60 16 105/50 100 06/03/24 03:00 60 14 107/45 98 12/24/23 02:00 61 18 97/42 96 12/24/23 01:00 60 18 97/45 98 12/24/23 00:00 61 18 88/46 98 12/23/23 23:01 60 18 88/50 99 12/23/23 23:00 60 18 88/50 100 12/23/23 22:40 61 18 89/46 98 12/23/23 22:20 61 18 91/51 100 12/23/23 22:00 62 18 74/41 98 12/23/23 21:40 63 18 90/52 97 12/23/23 21:20 66 18 96/50 95 12/23/23 21:08 98.8 F 66 16 97/48 Intake and Output 12/23/23 12/24/23 12/24/23 22:59 06:59 14:59 Intake Total 39.879 Balance 39.879 Intake: Intake, IV Titration 39.879 Amount Heparin Sod,Pork in 0.45% 39.879 NaCl 25,000 unit In 0.45 % NaCl 1 250ml.bag @ 12 UNITS/KG/HR 5.879 mls/hr IV .Q24H [facility] Rx#: [id number] Other: Weight 48.988 kg Results 12/23/23 21:26 12/23/23 21:26 Cardiac Enzymes 12/23/23 12/23/23 12/24/23 Range/Units 21:26 21:26 00:27 AST 98 H (14-36) U/L Troponin I 12.900 H* 10.200 H* (0.000-0.034) ng/mL 12/24/23 Range/Units 04:05 AST (14-36) U/L Troponin I 8.440 H* (0.000-0.034) ng/mL Coagulation 12/23/23 12/24/23 Range/Units 21:26 04:05 PT 11.0 (10.0-12.5) sec APTT 20.0 L 41.0 H (22.0-30.0) sec CBC 12/23/23 Range/Units 21:26 WBC 10.8 H (3.8-10.6) k/uL RBC 2.87 L (3.80-5.40) m/uL Hgb 9.1 L (11.4-16.0) gm/dL Hct 28.6 L (34.0-46.0) % Plt Count 248 (150-450) k/uL Comprehensive Metabolic Panel 12/23/23 Range/Units 21:26 Sodium 136 L (137-145) mmol/L Potassium 4.2 (3.5-5.1) mmol/L Chloride 112 H (98-107) mmol/L Carbon Dioxide 19 L (22-30) mmol/L BUN 28 H (7-17) mg/dL Creatinine 1.47 H (0.52-1.04) mg/dL Glucose 116 H (74-99) mg/dL Calcium 7.8 L (8.4-10.2) mg/dL AST 98 H (14-36) U/L ALT 58 H (4-34) U/L Alkaline Phosphatase 129 H (38-126) U/L Total Protein 6.1 L (6.3-8.2) g/dL Albumin 3.1 L (3.5-5.0) g/dL Current Medications Generic Name Dose Route Start Last Admin Trade Name Freq PRN Reason Stop Dose Admin Acetaminophen 650 mg 12/23/23 21:17 Acetaminophen Tab 325 Mg Tab PO Q6HR PRN Mild Pain or Fever > 100.5 Heparin Sodium (Porcine) 0 unit 12/24/23 05:32 12/24/23 05:40 Heparin Sodium 1,000 Un/Ml (10ml Vl) IV 1,225 unit PER PROTOCOL PRN Administration Low PTT Protocol Heparin Sodium/Sodium Chloride 250 mls @ 5.879 mls/hr 12/23/23 21:30 12/24/23 05:28 25,000 unit/ Sodium Chloride IV 14 units/kg/hr .Q24H [facility] 6.858 mls/hr Titration Protocol 12 UNITS/KG/HR Sodium Chloride 1,000 mls @ 100 mls/hr 12/23/23 21:30 12/24/23 06:40 Saline 0.9% IV 100 mls/hr .Q10H [facility] Administration Naloxone HCl 0.2 mg 12/23/23 21:17 Naloxone 0.4 Mg/Ml 1 Ml Vial IV Q2M PRN Opioid Reversal Ondansetron HCl 4 mg 12/23/23 21:17 Ondansetron 4 Mg/2 Ml Vial IVP Q8HR PRN Nausea And Vomiting Intake and Output 12/23/23 12/24/23 12/24/23 22:59 06:59 14:59 Intake Total 39.879 Balance 39.879 Intake: Intake, IV Titration 39.879 Amount Heparin Sod,Pork in 0.45% 39.879 NaCl 25,000 unit In 0.45 % NaCl 1 250ml.bag @ 12 UNITS/KG/HR 5.879 mls/hr IV .Q24H [facility] Rx#: [id number] Other: Weight 48.988 kg 12/23/23 21:26 12/23/23 21:26
[2023-12-24] MEDS ORDERED: busPIRone HCl 5 MG TAB PO PRN (11:38)
--- NOTE | 2023-12-24 11:49 | P.HPIM ---
History of Present Illness Patient pleasant 88-year-old female was transferred from outside hospital. Patient presented today with shortness of breath and noted to have some significant EKG changes and elevated troponins because of which patient was sent in here. Patient also for positive for COVID-19 although patient has symptoms going on for about a week and feels much better now. Patient denies any shortness of breath giving patient any chest pain at this time. EKG showed inferolateral ST-T wave changes. Patient had 3 sets of troponins here first 1 being 12, 10, 8. Patient is systolic murmur in the aortic area patient said she has history of coronary disease, but unsure whether had a cardiac catheterization or stenting in the past as per the history patient also has heart failure although her ejection fraction is not known. Chest x-ray at the hospital did show pulm edema I will obtain a BNP and a repeat chest x-ray here patient clinically does not have any orthopnea paroxysmal nocturnal dyspnea, denies any shortness of breath. Patient is laying flat on the bed when I evaluate the patient patient does not have any peripheral edema at this time. Patient does have some metabolic acidosis secondary to hypokalemia patient is chronically disease with baseline creatinine of around 1.2 present creatinine is around 1.47. Cardiology evaluated the patient. REVIEW OF SYSTEMS: CONSTITUTIONAL: No fever, no malaise, no fatigue. HEENT: No recent visual problems or hearing problems. Denied any sore throat. CARDIOVASCULAR: No chest pain, orthopnea, PND, no palpitations, no syncope. PULMONARY: No shortness of breath, no cough, no hemoptysis. GASTROINTESTINAL: No diarrhea, no nausea, no vomiting, no abdominal pain. NEUROLOGICAL: No headaches, no weakness, no numbness. HEMATOLOGICAL: Denies any bleeding or petechiae. GENITOURINARY: Denies any burning micturition, frequency, or urgency. MUSCULOSKELETAL/RHEUMATOLOGICAL: Denies any joint pain, swelling, or any muscle pain. ENDOCRINE: Denies any polyuria or polydipsia. The rest of the 14-point review of systems is negative. PHYSICAL EXAMINATION: GENERAL: The patient is alert and oriented x3, not in any acute distress. Well developed, well nourished. HEENT: Pupils are round and equally reacting to light. EOMI. No scleral icterus. No conjunctival pallor. Normocephalic, atraumatic. No pharyngeal erythema. No thyromegaly. CARDIOVASCULAR: S1 and S2 present. Grade 4/6 systolic murmur in the aortic area PULMONARY: Chest is clear to auscultation, no wheezing or crackles. ABDOMEN: Soft, nontender, nondistended, normoactive bowel sounds. No palpable organomegaly. MUSCULOSKELETAL: No joint swelling or deformity. EXTREMITIES: No cyanosis, clubbing, or pedal edema. NEUROLOGICAL: Gross neurological examination did not reveal any focal deficits. SKIN: No rashes. Assessment and plan -Possible acute non-ST elevation myocardial infarction patient on IV heparin which will be continued considering her age and elevated creatinine cardiology is considering conservative versus aggressive interventional therapy. Patient is on a statin patient is not on beta-kory her heart rate is in 60s and there is a concern for inferior wall MO. -Hypertension patient pressure is low hold off antihypertensive medications at this time -COVID-19 patient has symptoms for about a week may not be infectious anymore but will continue with isolation as per protocol -Chronic kidney disease stage IV -Paroxysmal atrial fibrillation on anticoagulation at home presently on IV he josafat patient is on appropriate prophy and on which will be continued Hyperlipidemia -Questionable history of congestive heart failure will obtain a BNP level and a chest x-ray echocardiogram is being obtained. Presently clinically not in heart failure exacerbation at this time DVT prophylaxis: On IV heparin Past Medical History Past Medical History: Atrial Fibrillation, Heart Failure, CVA/TIA, Hyperlipidemia, Hypertension Additional Past Medical History / Comment(s): insomnia, hemorrhoids, diverticulosis, hard of hearing, osteopenia History of Any Multi-Drug Resistant Organisms: None Reported Past Surgical History: Back Surgery, Tubal Ligation Additional Past Surgical History / Comment(s): exploatory laprotomy with right colectomy 03/08/[address] quinn due to perforated bowel after a colonoscopy at a different facility on 03/05/23. Past Anesthesia/Blood Transfusion Reactions: No Reported Reaction Past Psychological History: Anxiety Smoking Status: Never smoker Past Alcohol Use History: None Reported Past Drug Use History: None Reported - Past Family History Father Family Medical History: CVA/TIA Mother Family Medical History: Cancer Additional Family Medical History / Comment(s): Mother had bladder cancer Medications and Allergies Home Medications Medication Instructions Recorded Confirmed Type Pravastatin Sodium [Pravachol] 80 mg PO DAILY 04/02/16 12/24/23 History Apixaban [Eliquis] 2.5 mg PO BID tablet 04/06/16 12/24/23 Rx Propafenone [Rythmol] 150 mg PO Q12H 03/08/23 12/24/23 History Topiramate [Topamax] 50 mg PO DAILY 03/08/23 12/24/23 History busPIRone HCl [Buspar] 5 mg PO BID PRN 03/08/23 12/24/23 History Cholecalciferol [Vitamin D3 (25 25 mcg PO DAILY 12/24/23 12/24/23 History Mcg = 1000 Iu)] Furosemide [Lasix] 20 mg PO DAILY 12/24/23 12/24/23 History NIFEdipine XL [Procardia Xl] 30 mg PO DAILY 12/24/23 12/24/23 History Potassium Chloride [Klor-Con 8] 8 meq PO DAILY 12/24/23 12/24/23 History Primidone 125 mg PO HS 12/24/23 12/24/23 History Propranolol LA [Inderal LA] 60 mg PO DAILY 12/24/23 12/24/23 History amLODIPine [Norvasc] 5 mg PO DAILY 12/24/23 12/24/23 History Allergies Allergy/AdvReac Type Severity Reaction Status Date / Time lisinopril Allergy Unknown Verified 12/24/23 09:58 nitroglycerin Allergy Unknown Verified 12/24/23 09:58 [From Nitro-Dur] Physical Exam Vitals: Vital Signs Temp Pulse Pulse Resp BP Pulse Ox 12/24/23 10:00 64 18 101/43 98 12/24/23 06:00 60 16 104/63 98 12/24/23 05:21 73 12/24/23 05:00 61 18 101/45 97 12/24/23 04:00 60 16 105/50 100 12/24/23 03:00 60 14 107/45 98 12/24/23 02:00 61 18 97/42 96 12/24/23 01:00 60 18 97/45 98 12/24/23 00:00 61 18 88/46 98 12/23/23 23:01 60 18 88/50 99 12/23/23 23:00 60 18 88/50 100 12/23/23 22:40 61 18 89/46 98 12/23/23 22:20 61 18 91/51 100 12/23/23 22:00 62 18 74/41 98 12/23/23 21:40 63 18 90/52 97 12/23/23 21:20 66 18 96/50 95 12/23/23 21:08 98.8 F 66 16 97/48 Intake and Output 12/23/23 12/24/23 12/24/23 22:59 06:59 14:59 Intake Total 39.879 Balance 39.879 Intake: Intake, IV Titration 39.879 Amount Heparin Sod,Pork in 0.45% 39.879 NaCl 25,000 unit In 0.45 % NaCl 1 250ml.bag @ 12 UNITS/KG/HR 5.879 mls/hr IV .Q24H [facility] Rx#: [id number] Other: Weight 48.988 kg Results CBC & Chem 7: 12/23/23 21:26 12/23/23 21:26 Labs: Abnormal Lab Results - Last 24 Hours (Table) 12/23/23 12/23/23 12/23/23 Range/Units 21:26 21:26 21:26 WBC 10.8 H (3.8-10.6) k/uL RBC 2.87 L (3.80-5.40) m/uL Hgb 9.1 L (11.4-16.0) gm/dL Hct 28.6 L (34.0-46.0) % Neutrophils # 8.2 H (1.3-7.7) k/uL APTT 20.0 L (22.0-30.0) sec Sodium 136 L (137-145) mmol/L Chloride 112 H (98-107) mmol/L Carbon Dioxide 19 L (22-30) mmol/L BUN 28 H (7-17) mg/dL Creatinine 1.47 H (0.52-1.04) mg/dL Glucose 116 H (74-99) mg/dL Calcium 7.8 L (8.4-10.2) mg/dL AST 98 H (14-36) U/L ALT 58 H (4-34) U/L Alkaline Phosphatase 129 H (38-126) U/L Troponin I (0.000-0.034) ng/mL Total Protein 6.1 L (6.3-8.2) g/dL Albumin 3.1 L (3.5-5.0) g/dL SARS-CoV-2 (PCR) (Not Detectd) 12/23/23 12/24/23 12/24/23 Range/Units 21:26 00:27 04:05 WBC (3.8-10.6) k/uL RBC (3.80-5.40) m/uL Hgb (11.4-16.0) gm/dL Hct (34.0-46.0) % Neutrophils # (1.3-7.7) k/uL APTT (22.0-30.0) sec Sodium (137-145) mmol/L Chloride (98-107) mmol/L Carbon Dioxide (22-30) mmol/L BUN (7-17) mg/dL Creatinine (0.52-1.04) mg/dL Glucose (74-99) mg/dL Calcium (8.4-10.2) mg/dL AST (14-36) U/L ALT (4-34) U/L Alkaline Phosphatase (38-126) U/L Troponin I 12.900 H* 10.200 H* 8.440 H* (0.000-0.034) ng/mL Total Protein (6.3-8.2) g/dL Albumin (3.5-5.0) g/dL SARS-CoV-2 (PCR) (Not Detectd) 12/24/23 12/24/23 Range/Units 04:05 09:44 WBC (3.8-10.6) k/uL RBC (3.80-5.40) m/uL Hgb (11.4-16.0) gm/dL Hct (34.0-46.0) % Neutrophils # (1.3-7.7) k/uL APTT 41.0 H (22.0-30.0) sec Sodium (137-145) mmol/L Chloride (98-107) mmol/L Carbon Dioxide (22-30) mmol/L BUN (7-17) mg/dL Creatinine (0.52-1.04) mg/dL Glucose (74-99) mg/dL Calcium (8.4-10.2) mg/dL AST (14-36) U/L ALT (4-34) U/L Alkaline Phosphatase (38-126) U/L Troponin I (0.000-0.034) ng/mL Total Protein (6.3-8.2) g/dL Albumin (3.5-5.0) g/dL SARS-CoV-2 (PCR) Detected A (Not Detectd)
[2023-12-24 12:22] LABS: Prothrombin Time 11.1 sec (10.0-12.5)
--- NOTE | 2023-12-24 13:12 | XR ---
EXAMINATION TYPE: XR chest 1V DATE OF EXAM: 12/24/2023 COMPARISON: 03/12/2023 HISTORY: 88-year-old female CHF TECHNIQUE: Single frontal view of the chest is obtained. FINDINGS: Heart borderline to mildly enlarged. Atherosclerotic arch calcifications. Increased inters titial densities especially mid and lower lungs. No sizable pleural effusion on the frontal view. IMPRESSION: Borderline to mild cardiomegaly and increased interstitial opacity especially mid and low er lungs. Findings may reflect sequela of mild CHF.
[2023-12-24] MEDS: PROPAFENONE 150 MG TAB PO SCH (13:28)
--- NOTE | 2023-12-24 17:30 | CA ---
Transthoracic Echo Report Name: Jemima Negrete Age: 88 Gender: F : 1935 Exam Date: 12/24/2023 15:42 Exam Location: [facility] Ht (in): 59 Wt (lb): 108 Ordering Physician: King Skinner MD Attending/Referring Phys: [id number], [facility] Angella Smith RDCS Procedure CPT: Indications: nstemi Cardiac Hx: Technical Quality: Fair Contrast 1: Total Dose (mL): Contrast 2: Total Dose (mL): MEASUREMENTS (Male / Female) Normal Values 2D ECHO LV Diastolic Diameter PLAX 4.6 cm 4.2 - 5.9 / 3.9 - 5.3 cm LV Systolic Diameter PLAX 2.9 cm IVS Diastolic Thickness 0.9 cm 0.6 - 1.0 / 0.6 - 0.9 cm LVPW Diastolic Thickness 1.0 cm 0.6 - 1.0 / 0.6 - 0.9 cm LV Relative Wall Thickness 0.4 RV Internal Dim ED PLAX 2.4 cm LA Systolic Diameter LX 3.1 cm 3.0 - 4.0 / 2.7 - 3.8 cm LA Volume 58.8 cm??? 18 - 58 / 22 - 52 cm??? LA Volume Index 41.0 cm???/m??? 16 - 28 cm???/m??? M-MODE Aortic Root Diameter MM 2.9 cm AV Cusp Separation MM 1.8 cm DOPPLER AV Peak Velocity 192.1 cm/s AV Peak Gradient 14.8 mmHg AV Mean Velocity 117.6 cm/s AV Mean Gradient 6.6 mmHg AV Velocity Time Integral 41.2 cm MV Area PHT 4.2 cm??? Mitral E Point Velocity 149.6 cm/s Mitral A Point Velocity 46.1 cm/s Mitral E to A Ratio 3.2 MV Deceleration Time 181.7 ms TR Peak Velocity 333.1 cm/s TR Peak Gradient 44.4 mmHg Right Ventricular Systolic Press 49.1 mmHg FINDINGS Left Ventricle Left ventricular ejection fraction is estimated at 45-50 %. Left ventricular cavity size normal. Left ventricular wall thickness normal. Apical inferir hypokinesis, apical septum hypokinesis Right Ventricle Normal right ventricular size and function. Moderate pulmonary hypertension. Right ventricular systolic pressure estimated at 49 mm hg. Right Atrium Normal right atrial size. No right atrial thrombus or mass seen. Left Atrium Mildly increased left atrial volume. Mildly increased left atrial area. Mitral Valve Structurally normal mitral valve. No evidence for mitral valve prolapse. No mitral stenosis. Trace to mild mitral regurgitation. Aortic Valve Trileaflet aortic valve. No aortic valve stenosis or regurgitation. Tricuspid Valve Structurally normal tricuspid valve. Mild tricuspid regurgitation. Pulmonic Valve Structurally normal pulmonic valve. Mild pulmonic regurgitation. Pericardium No pericardial or pleural effusion. Aorta Normal size aortic root and proximal ascending aorta. CONCLUSIONS Mild LV systolic dysfunction with apical hypokinesis Moderate pulmonary hypertension Mild tricuspid regurgitation Previewed by: Dr. Tylor Mcduffie MD (Electronically Signed) Final Date: 24 December 2023 17:29
[2023-12-24] MEDS: PRIMIDONE 125 MG PO SCH (21:20)
[2023-12-25 06:51] LABS: African American GFR (CKD) 47 (>60 ml/min/1.73 sqM); Anion Gap 6 mmol/L; Blood Urea Nitrogen 22 mg/dL (7-17); Calcium 7.8 mg/dL (8.4-10.2); Carbon Dioxide 14 mmol/L (22-30); Chloride 119 mmol/L (98-107); Glucose 138 mg/dL (74-99); Non-African American GFR(CKD) 41 (>60 ml/min/1.73 sqM); Potassium 3.3 mmol/L (3.5-5.1); Sodium 139 mmol/L (137-145)
[2023-12-25 07:22] LABS: HCT 30.3 % (34.0-46.0); HGB 9.3 gm/dL (11.4-16.0); Hypochromasia Marked; MCHC 30.6 g/dL (31.0-37.0); Macrocytosis Moderate; Mean Platelet Volume 8.1; Platelet Count 274 k/uL (150-450); WBC 8.4 k/uL (3.8-10.6)
[2023-12-25 07:31] LABS: MCV 107.9 fL (80.0-100.0)
[2023-12-25] MEDS: DILTIAZEM 125 MG in SODIUM CHLORIDE 0.9% 100 ML IV SCH (09:19)
[2023-12-25] MEDS: DILTIAZEM DRIP BOLUS FROM BAG 1 MG SOLN IV ONE (09:20)
[2023-12-25] MEDS: PRAVASTATIN SODIUM 80 MG TAB PO SCH (09:20)
[2023-12-25] MEDS: TOPIRAMATE 25 MG TAB PO SCH (09:20)
[2023-12-25] MEDS: PANTOPRAZOLE 40 MG TABLET PO SCH (09:21)
[2023-12-25] MEDS ORDERED: Potassium Replacement Protocol 1 EACH MISC MISCELLANE PRN (09:51)
[2023-12-25] MEDS: POTASSIUM CHLORIDE ER 20 MEQ TAB.ER PO SCH (10:14)
[2023-12-25 13:26] VITALS: BMI 21.8
--- NOTE | 2023-12-25 14:50 | P.PN ---
Subjective Progress Note Date: 12/25/23 Chief complaint: Chest discomfort and shortness of breath History of present illness: This is an 88-year-old female patient who is known to our service from before with a past medical history significant for paroxysmal atrial fibrillation and history of TIA as well as hypertension and dyslipidemia. She presented initially to the hospital in [facility] with chest discomfort and shortness of breath and she was noted to have abnormal cardiac enzymes and she also was tested positive for COVID initially but that testing to be negative subsequently. She was transferred because of the symptoms and the EKG. The EKG showed sinus mechanism with ST changes inferiorly and laterally concerning for ST elevation myocardial infarction and the troponin came in to be significantly abnormal and also concerning for acute coronary syndrome. Currently she is ches t pain-free. The hemoglobin is around 9. The creatinine is slightly elevated and she is known to have chronic kidney disease. Echocardiogram was ordered and still pending. I am going to repeat the test for COVID at this point and also repeat the EKG and follow-up on the echocardiogram. Further recommendation to follow. The patient currently is on heparin. Currently she is asymptomatic. No history of CAD but she is known to have paroxysmal atrial fibrillation and has multiple risk factors. The examination is remarkable for stable vital signs with regular rate and rhythm and systolic murmur at the right upper sternal border with clear breathing sounds bilaterally and no edema was noted 12/24 Patient is seen today in follow-up. She remains in atrial fibrillation with RVR and on Cardizem drip at 5 mg/h. She is also on a heparin drip. No complaints of chest pain. Blood pressure is 108/62, heart rates in the 120s to 140s, pulse ox 100% on room air. Assessment Acute coronary syndrome Paroxysmal atrial fibrillation, currently RVR Multiple comorbid conditions Chronic kidney disease COVID positive Plan Continue heparin for 48 hours total And Toprol-XL 25 mg daily Continue Cardizem drip at 5 mg/h Obtain an echocardiogram with Doppler Further recommendation to follow Discussed the invasive versus conservative approach with the patient. Plan is for conservative management. Nurse practitioner note has been reviewed, I agree with documented findings and plan of care. Patient was seen and examined. Objective - Vital Signs Vital signs: Vital Signs Temp 97.9 F 12/25/23 11:34 Pulse 131 H 12/25/23 11:34 Resp 17 12/25/23 11:34 BP 108/62 06/04/24 11:34 Pulse Ox 100 12/25/23 11:34 FiO2 Intake & Output 12/24/23 12/25/23 12/25/23 18:59 06:59 18:59 Intake Total 53.492 124.102 53.821 Balance 53.492 124.102 53.821 Weight 48.988 kg 48.988 kg Intake: Intake, IV Titration 53.492 124.102 53.821 Amount Heparin Sod,Pork in 0.45% 53.492 124.102 53.821 NaCl 25,000 unit In 0.45 % NaCl 1 250ml.bag @ 12 UNITS/KG/HR 5.879 mls/hr IV .Q24H [facility] Rx#: [id number] Other: Voiding Method Toilet Toilet # Voids 1 # Bowel Movements 1 - Labs CBC & Chem 7: 12/25/23 06:25 12/25/23 06:25 Labs: Abnormal Lab Results - Last 24 Hours (Table) 12/24/23 12/25/23 12/25/23 Range/Units 19:04 06:25 06:25 RBC 2.80 L (3.80-5.40) m/uL Hgb 9.3 L (11.4-16.0) gm/dL Hct 30.3 L (34.0-46.0) % MCV 107.9 H D (80.0-100.0) fL MCHC 30.6 L (31.0-37.0) g/dL APTT 47.4 H (22.0-30.0) sec Potassium 3.3 L (3.5-5.1) mmol/L Chloride 119 H (98-107) mmol/L Carbon Dioxide 14 L (22-30) mmol/L BUN 22 H (7-17) mg/dL Creatinine 1.20 H (0.52-1.04) mg/dL Glucose 138 H (74-99) mg/dL Calcium 7.8 L (8.4-10.2) mg/dL 12/25/23 Range/Units 06:25 RBC (3.80-5.40) m/uL Hgb (11.4-16.0) gm/dL Hct (34.0-46.0) % MCV (80.0-100.0) fL MCHC (31.0-37.0) g/dL APTT 36.4 H (22.0-30.0) sec Potassium (3.5-5.1) mmol/L Chloride (98-107) mmol/L Carbon Dioxide (22-30) mmol/L BUN (7-17) mg/dL Creatinine (0.52-1.04) mg/dL Glucose (74-99) mg/dL Calcium (8.4-10.2) mg/dL
[2023-12-25] MEDS: METOPROLOL SUCCINATE (ER) 25 MG TAB.ER.24H PO SCH (15:02)
[2023-12-26] MEDS: PRIMIDONE 50 MG TAB PO SCH (00:36)
--- NOTE | 2023-12-26 09:44 | P.PN ---
Subjective Progress Note Date: 12/25/23 Patient pleasant 88-year-old female was transferred from outside hospital. Patient presented today with shortness of breath and noted to have some significant EKG changes and elevated troponins because of which patient was sent in here. Patient also for positive for COVID-19 although patient has symptoms going on for about a week and feels much better now. Patient denies any shortness of breath giving patient any chest pain at this time. EKG showed inferolateral ST-T wave changes. Patient had 3 sets of troponins here first 1 being 12, 10, 8. Patient is systolic murmur in the aortic area patient said she has history of coronary disease, but unsure whether had a cardiac catheterization or stenting in the past as per the history patient also has heart failure although her ejection fraction is not known. Chest x-ray at the hospital did show pulm edema I will obtain a BNP and a repeat chest x-ray here patient clinically does not have any orthopnea paroxysmal nocturnal dyspnea, denies any shortness of breath. Patient is laying flat on the bed when I evaluate the patient patient does not have any peripheral edema at this time. Patient does have some metabolic acidosis secondary to hypokalemia patient is chronically disease with baseline creatinine of around 1.2 present creatinine is around 1.47. Cardiology evaluated the patient. 12/25/2023 Patient is seen in follow-up today and remains on telemetry monitoring and atrial fibrillation. Patient started on Cardizem and cardiology consulted and following. Patient reports she does have a history of atrial fibrillation maintained on primidone and Rythmol along with Eliquis. Patient is noted to have COVID although denies any shortness of breath or symptoms. Patient is on room air and denies any difficulty in breathing. Patient with generalized weakness recommend PT/OT therapy. Patient reports she lives with her family and plans on going home. Will follow-up with repeat labs and continue to monitor closely. Review of systems: Constitutional: No reports of fatigue, fever, or chills Cardiovascular: No reports of chest pain, reports of feeling palpitations Respiratory: No reports of shortness of breath or cough GI: No reports of nausea, vomiting, or diarrhea : No reports of dysuria or retention Neurovascular: reports of generalized weakness All medications have been reviewed PHYSICAL EXAMINATION: GENERAL: The patient is alert and oriented x3, not in any acute distress. Well developed, well nourished. Elderly appearing, thin built HEENT: Pupils are round and equally reacting to light. EOMI. No scleral icterus. No conjunctival pallor. Normocephalic, atraumatic. No pharyngeal erythema. No thyromegaly. CARDIOVASCULAR: S1 and S2 irregular PULMONARY: Chest is clear to auscultation, no wheezing or crackles. ABDOMEN: Soft, nontender, nondistended, normoactive bowel sounds. No palpable organomegaly. MUSCULOSKELETAL: No joint swelling or deformity. EXTREMITIES: No cyanosis, clubbing, or pedal edema. NEUROLOGICAL: Gross neurological examination did not reveal any focal deficits. SKIN: No rashes. Assessment and plan -Possible acute non-ST elevation myocardial infarction patient on IV heparin which will be continued considering her age and elevated creatinine cardiology is considering conservative versus aggressive interventional therapy. Patient is on a statin patient is not on beta-kory her heart rate is in 60s and there is a concern for inferior wall MD. -Hypertension patient pressure is low hold off antihypertensive medications at this time -COVID-19 patient has symptoms for about a week may not be infectious anymore but will continue with isolation as per protocol -Chronic kidney disease stage IV -Paroxysmal atrial fibrillation on anticoagulation at home presently on IV heparin patient is on appropriate prophy and on which will be continued Hyperlipidemia -Questionable history of congestive heart failure will obtain a BNP level and a chest x-ray echocardiogram is being obtained. Presently clinically not in heart failure exacerbation at this time DVT prophylaxis: On IV heparin Plan: Patient currently maintained on Cardizem with cardiology following as patient is in A-fib with RVR recommend to continue telemetry monitoring. Cardiology to adjust medications and will continue anticoagulation Encouraged oral intake and increased activity as tolerated Patient with generalized weakness recommend PT/OT therapy evaluation Patient reports she plans on returning home with family and will await PT notes The impression and plan of care has been dictated by Sharyn Alfaro Nurse Practitioner as directed. Dr. Sarah MD I have performed a history and examination and MDM of this patient, discussed the same with the dictator, and agree with the dictator's assessment and plan as written ,documented as a scribe. Based on total visit time, I have performed more than 50% of the visit. Objective - Vital Signs Vital signs: Vital Signs Temp 98.1 F 12/25/23 09:16 Pulse 134 H 12/25/23 09:16 Resp 21 12/25/23 09:35 BP 99/63 12/25/23 09:34 Pulse Ox 97 12/25/23 09:16 FiO2 Intake & Output 12/24/23 12/25/23 12/25/23 18:59 06:59 18:59 Intake Total 53.492 124.102 Balance 53.492 124.102 Weight 48.988 kg Intake: Intake, IV Titration 53.492 124.102 Amount Heparin Sod,Pork in 0.45% 53.492 124.102 NaCl 25,000 unit In 0.45 % NaCl 1 250ml.bag @ 12 UNITS/KG/HR 5.879 mls/hr IV .Q24H [facility] Rx#: [id number] Other: Voiding Method Toilet Toilet # Voids 1 # Bowel Movements 1 - Labs CBC & Chem 7: 12/25/23 06:25 12/25/23 06:25 Labs: Abnormal Lab Results - Last 24 Hours (Table) 12/24/23 12/24/23 12/24/23 Range/Units 09:44 11:51 19:04 RBC (3.80-5.40) m/uL Hgb (11.4-16.0) gm/dL Hct (34.0-46.0) % MCV (80.0-100.0) fL MCHC (31.0-37.0) g/dL APTT 35.3 H 47.4 H (22.0-30.0) sec Potassium (3.5-5.1) mmol/L Chloride (98-107) mmol/L Carbon Dioxide (22-30) mmol/L BUN (7-17) mg/dL Creatinine (0.52-1.04) mg/dL Glucose (74-99) mg/dL Calcium (8.4-10.2) mg/dL SARS-CoV-2 (PCR) Detected A (Not Detectd) 12/25/23 12/25/23 12/25/23 Range/Units 06:25 06:25 06:25 RBC 2.80 L (3.80-5.40) m/uL Hgb 9.3 L (11.4-16.0) gm/dL Hct 30.3 L (34.0-46.0) % MCV 107.9 H D (80.0-100.0) fL MCHC 30.6 L (31.0-37.0) g/dL APTT 36.4 H (22.0-30.0) sec Potassium 3.3 L (3.5-5.1) mmol/L Chloride 119 H (98-107) mmol/L Carbon Dioxide 14 L (22-30) mmol/L BUN 22 H (7-17) mg/dL Creatinine 1.20 H (0.52-1.04) mg/dL Glucose 138 H (74-99) mg/dL Calcium 7.8 L (8.4-10.2) mg/dL SARS-CoV-2 (PCR) (Not Detectd)
[2023-12-26 10:13] LABS: Amorphous Sediment,Urine Occasional /hpf; Appearance,Urine Cloudy (Clear); Bacteria,Urine Occasional /hpf; Bilirubin,Urine Negative (Negative); Blood,Urine Trace (Negative); Color,Urine Light Yellow; Glucose,Urine (UA) Negative (Negative); Ketones,Urine Negative (Negative); Leukocyte Esterase,Urine Negative (Negative); Mucus,Urine Rare /hpf; Nitrite,Urine Negative (Negative); PH, Urine 5.5 (5.0-8.0); Protein,Urine 1+ (Negative); RBC,Urine 5 /hpf (0-5); Squamous Epithelial Cell,Urine 2 /hpf (0-4); Urobilinogen,Urine <2.0 mg/dL (<2.0); WBC,Urine 1 /hpf (0-5)
[2023-12-26] MEDS: METOPROLOL SUCCINATE (ER) 25 MG TAB.ER.24H PO STA (12:29)
[2023-12-26] MEDS: APIXABAN 2.5 MG TABLET PO SCH (12:32)
--- NOTE | 2023-12-26 14:24 | P.PN ---
Subjective Progress Note Date: 12/26/23 Chief complaint: Chest discomfort and shortness of breath History of present illness: This is an 88-year-old female patient who is known to our service from before with a past medical history significant for paroxysmal atrial fibrillation and history of TIA as well as hypertension and dyslipidemia. She presented initially to the hospital in [facility] with chest discomfort and shortness of breath and she was noted to have abnormal cardiac enzymes and she also was tested positive for COVID initially but that testing to be negative subsequently. She was transferred because of the symptoms and the EKG. The EKG showed sinus mechanism with ST changes inferiorly and laterally concerning for ST elevation myocardial infarction and the troponin came in to be significantly abnormal and also concerning for acute coronary syndrome. Currently she is ches t pain-free. The hemoglobin is around 9. The creatinine is slightly elevated and she is known to have chronic kidney disease. Echocardiogram was ordered and still pending. I am going to repeat the test for COVID at this point and also repeat the EKG and follow-up on the echocardiogram. Further recommendation to follow. The patient currently is on heparin. Currently she is asymptomatic. No history of CAD but she is known to have paroxysmal atrial fibrillation and has multiple risk factors. The examination is remarkable for stable vital signs with regular rate and rhythm and systolic murmur at the right upper sternal border with clear breathing sounds bilaterally and no edema was noted 12/24 Patient is seen today in follow-up. She remains in atrial fibrillation with RVR and on Cardizem drip at 5 mg/h. She is also on a heparin drip. No complaints of chest pain. Blood pressure is 108/62, heart rates in the 120s to 140s, pulse ox 100% on room air. 12/25 Patient remains and atrial fibrillation and Cardizem drip was increased to 10 mg/h. Heart rate is running 1 15-1 30. No chest pain. Blood pressure 122/77. Echocardiogram reveals EF of 45 to 50% with apical hypokinesis, moderate pulmonary hypertension, mild tricuspid regurgitation. Assessment Acute coronary syndrome, late presentation Paroxysmal atrial fibrillation, currently mild RVR Multiple comorbid conditions Chronic kidney disease COVID positive Plan Discontinue heparin drip and resume patient on Eliquis 2.5 mg twice daily Continue Toprol-XL 50 mg daily Continue Cardizem drip at 10 mg/h Further recommendation to follow Discussed the invasive versus conservative approach with the patient. Plan is for conservative management. Nurse practitioner note has been reviewed, I agree with documented findings and plan of care. Patient was seen and examined. Objective - Vital Signs Vital signs: Vital Signs Temp 98.2 F 12/26/23 08:20 Pulse 116 H 12/26/23 08:20 Resp 16 12/26/23 08:20 BP 122/77 12/26/23 08:20 Pulse Ox 97 12/26/23 08:20 FiO2 Intake & Output 12/25/23 12/26/23 12/26/23 18:59 06:59 18:59 Intake Total 473.821 257.168 254.5 Balance 473.821 257.168 254.5 Weight 48.988 kg Intake: Intake, IV Titration 53.821 257.168 18.5 Amount Diltiazem 125 mg In 96.833 18.5 Sodium Chloride 0.9% 100 ml @ 5 MG/HR 5 mls/hr IV .Q24H [facility] Rx#:[id number] Heparin Sod,Pork in 0.45% 53.821 160.335 NaCl 25,000 unit In 0.45 % NaCl 1 250ml.bag @ 12 UNITS/KG/HR 5.879 mls/hr IV .Q24H [facility] Rx#: [id number] Oral 420 236 Other: Voiding Method Toilet Toilet Toilet # Voids 1 2 3 # Bowel Movements 1 1 2 - Labs CBC & Chem 7: 12/25/23 06:25 12/25/23 06:25 Labs: Abnormal Lab Results - Last 24 Hours (Table) 12/25/23 12/26/23 12/26/23 Range/Units 18:54 03:02 09:52 APTT 34.6 H 66.0 H (22.0-30.0) sec Urine Appearance Cloudy H (Clear) Urine Protein 1+ H (Negative) Urine Blood Trace H (Negative) Amorphous Sediment Occasional H (None) /hpf Urine Bacteria Occasional H (None) /hpf Urine Mucus Rare H (None) /hpf
--- NOTE | 2023-12-26 14:27 | CDI ---
Documentation Clarification Form Date: 12/26/2023 From: Areli Eagle Phone: [phone] Admit Date: 12/23/2023 09:17:00 PM Patient Name: Jemima Negrete Visit Number: [id number] Discharge Date: ATTENTION: The Clinical Documentation Specialists (CDI) and [facility] Coding Staff appreciate your assistance in clarifying documentation. Please respond to the clarification below the line at the bottom and electronically sign. The CDI & [facility] Coding staff will review the response and follow-up if needed. Please note: Queries are made part of the Legal Health Record. If you have any questions, please contact the author of this message via ITS. AGUSTIN Messina: There is documentation of possible acute non-ST elevation myocardial infarction in the H&P on 12/23. Additional clarification is requested. History/Risk Factors: 88-year-old female with a history of Paroxysmal AFib, HTN, CKD who presents with chest discomfort and SOB, found to have elevated troponins and in atrial fibrillation Clinical Indicators: 12/22 Triage VS: 97/48, 98.8, 66, 16, 95% on room air (SAO2 obtained 12 minutes after VS) 12/23 H&P, Assessment and plan: "Possible acute non-ST elevation myocardial infarction patient on IV heparin" 12/23 Cardiology Consult, Assessment: "Acute coronary syndrome" 12/22-12/23 Troponin: 12.900, 10.200, 8.440 12/23 BNP: 14,800 12/22 EKG: "ST elevation, consider inferior injury (Marked ST elevation W/O normally inflected T-Wave in II/AVF) Acute TX" 12/23 ECHO, EF: 45-50% Treatment: EKG, Consult Cardiology Heparin titrated drip 12/22-12/25 Rhythmol 150mg oral [id number] oral start 12/23 Cardizem 125mg at 5mg/hour Q24 hours 12/24-12/25 Metoprolol Succinate 50mg PO daily ordered, no doses given Can you please clarify the diagnosis of NSTEMI? [ ] NSTEMI type 1 [ ] Type 2 TX due to (specify cause ) [ x ] Other, please specify ____STEMI--SEE NOTE FROM TODAY____ [ ] Unable to determine MTDD
--- NOTE | 2023-12-27 07:14 | P.PN ---
Subjective Progress Note Date: 12/26/23 Patient pleasant 88-year-old female was transferred from outside hospital. Patient presented today with shortness of breath and noted to have some significant EKG changes and elevated troponins because of which patient was sent in here. Patient also for positive for COVID-19 although patient has symptoms going on for about a week and feels much better now. Patient denies any shortness of breath giving patient any chest pain at this time. EKG showed inferolateral ST-T wave changes. Patient had 3 sets of troponins here first 1 being 12, 10, 8. Patient is systolic murmur in the aortic area patient said she has history of coronary disease, but unsure whether had a cardiac catheterization or stenting in the past as per the history patient also has heart failure although her ejection fraction is not known. Chest x-ray at the hospital did show pulm edema I will obtain a BNP and a repeat chest x-ray here patient clinically does not have any orthopnea paroxysmal nocturnal dyspnea, denies any shortness of breath. Patient is laying flat on the bed when I evaluate the patient patient does not have any peripheral edema at this time. Patient does have some metabolic acidosis secondary to hypokalemia patient is chronically disease with baseline creatinine of around 1.2 present creatinine is around 1.47. Cardiology evaluated the patient. 12/25/2023 Patient is seen in follow-up today and remains on telemetry monitoring and atrial fibrillation. Patient started on Cardizem and cardiology consulted and following. Patient reports she does have a history of atrial fibrillation maintained on primidone and Rythmol along with Eliquis. Patient is noted to have COVID although denies any shortness of breath or symptoms. Patient is on room air and denies any difficulty in breathing. Patient with generalized weakness recommend PT/OT therapy. Patient reports she lives with her family and plans on going home. Will follow-up with repeat labs and continue to monitor closely. 12/26/2023 Patient is seen in follow-up today currently sitting up in the chair and was able to work with physical therapy. Patient with weakness uses a walker requiring some rest Breaks during walking although able to tolerate. Patient reports she lives with her son at home And will discuss further with case management/social work regarding discharge planning. Reorient patient frequently as patient was reported to be having hallucinations. Blinds and shades to be open during the day and may use Seroquel as needed at night. Patient remains in A-fib with RVR maintained on Cardizem with cardiology fol lowing making adjustments to medications. Patient is anticoagulated. Review of systems: Constitutional: No reports of fatigue, fever, or chills Cardiovascular: No reports of chest pain, reports of feeling palpitations Respiratory: No reports of shortness of breath or cough GI: No reports of nausea, vomiting, or diarrhea : No reports of dysuria or retention Neurovascular: reports of generalized weakness All medications have been reviewed PHYSICAL EXAMINATION: GENERAL: The patient is alert and oriented x2-3, not in any acute distress. Well developed, well nourished. Elderly appearing, thin built HEENT: Pupils are round and equally reacting to light. EOMI. No scleral icterus. No conjunctival pallor. Normocephalic, atraumatic. No pharyngeal erythema. No thyromegaly. CARDIOVASCULAR: S1 and S2 irregular PULMONARY: Chest is clear to auscultation, no wheezing or crackles. ABDOMEN: Soft, nontender, nondistended, normoactive bowel sounds. No palpable organomegaly. MUSCULOSKELETAL: No joint swelling or deformity. EXTREMITIES: No cyanosis, clubbing, or pedal edema. NEUROLOGICAL: Gross neurological examination did not reveal any focal deficits. SKIN: No rashes. Assessment and plan -Possible acute non-ST elevation myocardial infarction patient on IV heparin which will be continued considering her age and elevated creatinine cardiology is considering conservative versus aggressive interventional therapy. Patient is on a statin patient is not on beta-kory her heart rate is in 60s and there is a concern for inferior wall TX. -Hypertension patient pressure is low hold off antihypertensive medications at this time -COVID-19 patient has symptoms for about a week may not be infectious anymore but will continue with isolation as per protocol -Chronic kidney disease stage IV -Paroxysmal atrial fibrillation on anticoagulation at home presently on IV heparin Hyperlipidemia -Questionable history of congestive heart failure will obtain a BNP level and a chest x-ray echocardiogram is being obtained. Presently clinically not in heart failure exacerbation at this time DVT prophylaxis: On IV heparin Plan: Patient currently maintained on Cardizem with cardiology following as patient is in A-fib with RVR recommend to continue telemetry monitoring. Cardiology to adjust medications and will continue anticoagulation Encouraged oral intake and increased activity as tolerated Reorient frequently with the blinds and shades open during the day as patient is having episodes of hallucinations. Avoid SOLE RUFFER and narcotic agents. Patient worked with PT/OT therapy evaluation and is having weakness although improving and recommend PT/OT daily. Possibly home with home care. Patient lives with her son. Will await cardiology clearance with possible discharge planning in the next 24 to 48 hours The impression and plan of care has been dictated by Sharyn Alfaro, Nurse Practitioner as directed. Dr. Sarah MD I have performed a history and examination and MDM of this patient, discussed the same with the dictator, and agree with the dictator's assessment and plan as written ,documented as a scribe. Based on total visit time, I have performed more than 50% of the visit. 12/26/2023 Patient is seen in follow-up today currently sitting up in the chair Objective - Vital Signs Vital signs: Vital Signs Temp 98.3 F 12/26/23 03:26 Pulse 58 L 12/26/23 03:26 Resp 16 12/26/23 03:26 BP 114/66 12/26/23 03:26 Pulse Ox 96 12/26/23 03:26 FiO2 Intake & Output 12/25/23 12/26/23 12/26/23 18:59 06:59 18:59 Intake Total 473.821 257.168 136.5 Balance 473.821 257.168 136.5 Weight 48.988 kg Intake: Intake, IV Titration 53.821 257.168 18.5 Amount Diltiazem 125 mg In 96.833 18.5 Sodium Chloride 0.9% 100 ml @ 5 MG/HR 5 mls/hr IV .Q24H [facility] Rx#:[id number] Heparin Sod,Pork in 0.45% 53.821 160.335 NaCl 25,000 unit In 0.45 % NaCl 1 250ml.bag @ 12 UNITS/KG/HR 5.879 mls/hr IV .Q24H [facility] Rx#: [id number] Oral 420 118 Other: Voiding Method Toilet Toilet # Voids 1 2 # Bowel Movements 1 1 - Labs CBC & Chem 7: 12/25/23 06:25 12/25/23 06:25 Labs: Abnormal Lab Results - Last 24 Hours (Table) 12/25/23 12/26/23 Range/Units 18:54 03:02 APTT 34.6 H 66.0 H (22.0-30.0) sec
[2023-12-27 07:56] LABS: Basophils % (A) 0 %; Eosinophils # (A) 0.2 k/uL (0-0.7); Eosinophils % (A) 3 %; HCT 27.8 % (34.0-46.0); HGB 8.5 gm/dL (11.4-16.0); Hypochromasia Slight; Lymphocytes # (A) 0.9 k/uL (1.0-4.8); Lymphocytes % (A) 14 %; MCH 31.4 pg (25.0-35.0); MCHC 30.5 g/dL (31.0-37.0); Macrocytosis Slight; Mean Platelet Volume 8.1; Monocytes # (A) 0.4 k/uL (0-1.0); Monocytes % (A) 7 %; Neutrophils # (A) 4.7 k/uL (1.3-7.7); Neutrophils % (A) 74 %; Platelet Count 345 k/uL (150-450); RDW 13.1 % (11.5-15.5); WBC 6.4 k/uL (3.8-10.6)
[2023-12-27 08:11] LABS: African American GFR (CKD) 37 (>60 ml/min/1.73 sqM); Anion Gap 6 mmol/L; Blood Urea Nitrogen 18 mg/dL (7-17); Calcium 8.4 mg/dL (8.4-10.2); Carbon Dioxide 14 mmol/L (22-30); Chloride 120 mmol/L (98-107); Glucose 105 mg/dL (74-99); Non-African American GFR(CKD) 32 (>60 ml/min/1.73 sqM); Potassium 4.1 mmol/L (3.5-5.1); Sodium 140 mmol/L (137-145)
[2023-12-27 08:16] LABS: MCV 102.9 fL (80.0-100.0)
[2023-12-27] MEDS: METOPROLOL SUCCINATE (ER) 50 MG TAB.ER.24H PO SCH (08:20)
[2023-12-27 08:25] VITALS: RESP 17; TEMP 98
[2023-12-27] MEDS: METOPROLOL SUCCINATE (ER) 100 MG TAB.ER.24H PO SCH (09:13)
[2023-12-27] MEDS: METOPROLOL SUCCINATE (ER) 50 MG TAB.ER.24H PO STA (09:46)
[2023-12-27 11:12] VITALS: BP 120/79; PULSE 81
--- NOTE | 2023-12-27 13:17 | P.PN ---
Subjective Progress Note Date: 12/27/23 Chief complaint: Chest discomfort and shortness of breath History of present illness: This is an 88-year-old female patient who is known to our service from before with a past medical history significant for paroxysmal atrial fibrillation and history of TIA as well as hypertension and dyslipidemia. She presented initially to the hospital in [facility] with chest discomfort and shortness of breath and she was noted to have abnormal cardiac enzymes and she also was tested positive for COVID initially but that testing to be negative subsequently. She was transferred because of the symptoms and the EKG. The EKG showed sinus mechanism with ST changes inferiorly and laterally concerning for ST elevation myocardial infarction and the troponin came in to be significantly abnormal and also concerning for acute coronary syndrome. Currently she is ches t pain-free. The hemoglobin is around 9. The creatinine is slightly elevated and she is known to have chronic kidney disease. Echocardiogram was ordered and still pending. I am going to repeat the test for COVID at this point and also repeat the EKG and follow-up on the echocardiogram. Further recommendation to follow. The patient currently is on heparin. Currently she is asymptomatic. No history of CAD but she is known to have paroxysmal atrial fibrillation and has multiple risk factors. The examination is remarkable for stable vital signs with regular rate and rhythm and systolic murmur at the right upper sternal border with clear breathing sounds bilaterally and no edema was noted 12/24 Patient is seen today in follow-up. She remains in atrial fibrillation with RVR and on Cardizem drip at 5 mg/h. She is also on a heparin drip. No complaints of chest pain. Blood pressure is 108/62, heart rates in the 120s to 140s, pulse ox 100% on room air. 12/25 Patient remains and atrial fibrillation and Cardizem drip was increased to 10 mg/h. Heart rate is running 1 15-1 30. No chest pain. Blood pressure 122/77. Echocardiogram reveals EF of 45 to 50% with apical hypokinesis, moderate pulmonary hypertension, mild tricuspid regurgitation. 12/26 Today, patient states that she does have some chest pain that is coming and going but none since initial arrival. Her breathing seems to be okay. She is continued on Cardizem drip and on oral Eliquis. 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 Heart rate is in the 70s and 80s, blood pressure 120/79, pulse ox 98% on room air. Repeat blood work reveals hemoglobin of 8.5. BUN 18 and creatinine 1.46. Assessment Inferior ST elevated myocardial infarction, late presentation Paroxysmal atrial fibrillation, currently mild RVR Multiple comorbid conditions Chronic kidney disease COVID positive Plan Continue patient on Eliquis 2.5 mg twice daily Continue Toprol-XL and increase to 100 mg daily, continue patient on Rythmol 150 mg every 12 hours Discontinue Cardizem drip Discussed the invasive versus conservative approach with the patient. Plan is for conservative management. Nurse practitioner note has been reviewed, I agree with documented findings and plan of care. Patient was seen and examined. Objective - Vital Signs Vital signs: Vital Signs Temp 98.0 F 12/27/23 08:25 Pulse 78 12/27/23 08:25 Resp 17 12/27/23 08:25 BP 131/60 12/27/23 08:25 Pulse Ox 98 12/27/23 08:25 FiO2 Intake & Output 12/26/23 12/27/23 12/27/23 18:59 06:59 18:59 Intake Total 473.0 240 120 Balance 473.0 240 120 Intake: Intake, IV Titration 119.0 Amount Diltiazem 125 mg In 119.0 Sodium Chloride 0.9% 100 ml @ 5 MG/HR 5 mls/hr IV .Q24H [facility] Rx#:[id number] Oral 354 240 120 Other: Voiding Method Toilet Toilet Toilet # Voids 3 1 # Bowel Movements 1 1 - Labs CBC & Chem 7: 12/27/23 07:30 12/27/23 07:30 Labs: Abnormal Lab Results - Last 24 Hours (Table) 12/26/23 12/27/23 12/27/23 Range/Units 09:52 07:30 07:30 RBC 2.70 L (3.80-5.40) m/uL Hgb 8.5 L (11.4-16.0) gm/dL Hct 27.8 L (34.0-46.0) % MCV 102.9 H D (80.0-100.0) fL MCHC 30.5 L (31.0-37.0) g/dL Lymphocytes # 0.9 L (1.0-4.8) k/uL Chloride 120 H (98-107) mmol/L Carbon Dioxide 14 L (22-30) mmol/L BUN 18 H (7-17) mg/dL Creatinine 1.46 H (0.52-1.04) mg/dL Glucose 105 H (74-99) mg/dL Urine Appearance Cloudy H (Clear) Urine Protein 1+ H (Negative) Urine Blood Trace H (Negative) Amorphous Sediment Occasional H (None) /hpf Urine Bacteria Occasional H (None) /hpf Urine Mucus Rare H (None) /hpf
== END 2023-12-27 16:27 | disposition home health service (06) | DRG 280 ==
LOC: EC 20:58 → 3SCARD 21:17
PROVIDERS: ADMIT Hospitalist; ATTEND Hospitalist
PROC: 8E0ZXY6 Isolation (ICD-10-PCS; principal; 2023-12-23)
DX: I21.19 ST elevation (STEMI) myocardial infarction involving other coronary artery of inferior wall (principal); U07.1 COVID-19; I13.0 Hypertensive heart and chronic kidney disease with heart failure and stage 1 through stage 4 chronic kidney disease, or unspecified chronic kidney disease; N18.4 Chronic kidney disease, stage 4 (severe); E87.20 Acidosis, unspecified; R44.3 Hallucinations, unspecified; E78.5 Hyperlipidemia, unspecified; I48.0 Paroxysmal atrial fibrillation; H91.90 Unspecified hearing loss, unspecified ear; M85.80 Other specified disorders of bone density and structure, unspecified site; I27.20 Pulmonary hypertension, unspecified; I25.10 Atherosclerotic heart disease of native coronary artery without angina pectoris; I50.9 Heart failure, unspecified; F41.9 Anxiety disorder, unspecified; E87.6 Hypokalemia; Z88.8 Allergy status to other drugs, medicaments and biological substances; Z86.73 Personal history of transient ischemic attack (TIA), and cerebral infarction without residual deficits; Z79.899 Other long term (current) drug therapy; Z79.01 Long term (current) use of anticoagulants; Z71.3 Dietary counseling and surveillance
CPT/HCPCS: 71045; 80048; 80053; 81001; 83735; 83880; 84484; 85025; 85027; 85610; 85730; 87635; 93005; 93306; 96361; 96374; 96376; 99291